=== PATIENT | male | born 1970 | race Caucasian/White ===

== ENCOUNTER → 2016-08-12 | Outpatient (REF) | payer OTHER ==
[2016-08-12 16:52] LABS: ALBUMIN 3.8 GM/DL (3.2-5.2); ALBUMIN/GLOBULIN RATIO 0.83 (1.00-1.93); BILIRUBIN,TOTAL 0.3 MG/DL (0.2-1.0); CALCIUM LEVEL 9.3 MG/DL (8.5-10.1); CREATININE FOR GFR 1.52 MG/DL (0.70-1.30); GLOMERULAR FILTRATION RATE 52.8 (>60); TOTAL PROTEIN 8.4 GM/DL (6.4-8.2)
[2016-08-15 00:08] LABS: %CD3+CD4+CD8+ 1.5 % (Not Estab.); %CD3+CD4+CD8- 39.7 % (Not Estab.); %CD3+CD4-CD8+ 47.2 % (Not Estab.); %CD3+CD4-CD8- 1.8 % (Not Estab.); ABS CD3+CD4+CD8+ 24 /uL (Not Estab.); ABS CD3+CD4+CD8- 635 /uL (Not Estab.); ABS CD3+CD4-CD8+ 755 /uL (Not Estab.); ABS CD3+CD4-CD8- 29 /uL (Not Estab.); CD4/CD8 NYSDOH RATIO 0.84 (Not Estab.); Eosinophils 2 % (.); HCT 39.3 % (37.5-51.0); HGB 12.8 g/dL (12.6-17.7); Monocytes 4 % (.); Neutrophils 62 % (.); WBC 5.3 x10E3/uL (3.4-10.8)
== END ==
LOC: M SFHCPLAZ 12:51
PROVIDERS: ATTEND Internal Medicine Infectious Disease
DX: B20 Human immunodeficiency virus [HIV] disease (principal)

== ENCOUNTER → 2017-01-09 | Outpatient (REF) | payer OTHER ==
[2017-01-09 14:16] LABS: ALBUMIN 3.7 GM/DL (3.2-5.2); ALBUMIN/GLOBULIN RATIO 0.93 (1.00-1.93); BILIRUBIN,TOTAL 0.3 MG/DL (0.2-1.0); CALCIUM LEVEL 9.2 MG/DL (8.5-10.1); CREATININE FOR GFR 1.76 MG/DL (0.70-1.30); GLOMERULAR FILTRATION RATE 44.6 (>60); POTASSIUM SERUM 4.7 MEQ/L (3.5-5.1); TOTAL PROTEIN 7.7 GM/DL (6.4-8.2)
[2017-01-10 14:15] LABS: %CD3+CD4+CD8- 36.5 % (Not Estab.); %CD3+CD4-CD8+ 46.7 % (Not Estab.); %CD3+CD4-CD8- 2.1 % (Not Estab.); ABS CD3+CD4+CD8+ 16 /uL (Not Estab.); ABS CD3+CD4+CD8- 584 /uL (Not Estab.); ABS CD3+CD4-CD8+ 747 /uL (Not Estab.); ABS CD3+CD4-CD8- 34 /uL (Not Estab.); CD4/CD8 NYSDOH RATIO 0.78 (Not Estab.); Eosinophils 5 % (.); HCT 36.9 % (37.5-51.0); HGB 11.8 g/dL (12.6-17.7); Monocytes 4 % (.); Neutrophils 54 % (.); WBC 4.6 x10E3/uL (3.4-10.8)
== END ==
LOC: M SFHCPLAZ 11:42
PROVIDERS: ATTEND Internal Medicine Infectious Disease
DX: B20 Human immunodeficiency virus [HIV] disease (principal); A09 Infectious gastroenteritis and colitis, unspecified

== ENCOUNTER → 2018-02-05 | Outpatient (REF) | payer OTHER ==
[2018-02-05 12:32] LABS: ALBUMIN 3.2 GM/DL (3.2-5.2); ALBUMIN/GLOBULIN RATIO 0.74 (1.00-1.93); ALKALINE PHOSPHATASE 213 U/L (45-117); ALT/SGPT 54 U/L (12-78); ANION GAP 8 MEQ/L (8-16); AST/SGOT 68 U/L (7-37); BILIRUBIN,TOTAL 0.1 MG/DL (0.2-1.0); BLOOD UREA NITROGEN 24 MG/DL (7-18); C REACTIVE PROTEIN QUANTITATIV 2.32 MG/DL (0.00-0.30); CALCIUM LEVEL 8.6 MG/DL (8.5-10.1); CARBON DIOXIDE LEVEL 29 MEQ/L (21-32); CHLORIDE LEVEL 101 MEQ/L (98-107); CREATININE FOR GFR 1.62 MG/DL (0.70-1.30); GLOMERULAR FILTRATION RATE 48.9 (>60); GLUCOSE, FASTING 121 MG/DL (70-100); POTASSIUM SERUM 4.6 MEQ/L (3.5-5.1); RHEUMATOID FACTOR QUANT < 10.0 IU/ML (<15.0); SODIUM LEVEL 138 MEQ/L (136-145); TOTAL PROTEIN 7.5 GM/DL (6.4-8.2)
[2018-02-05 14:09] LABS: CHLAMYDIA DNA AMPLIFICATION NEGATIVE (NEGATIVE); GC DNA AMPLIFICATION NEGATIVE (NEGATIVE)
[2018-02-05 14:21] LABS: ERYTHROCYTE SEDIMENTATION RATE 91 mm/hr (0-15)
[2018-02-06 11:11] LABS: HEPATITIS C VIRUS ABY INDEX 0.1 INDEX (<0.8)
[2018-02-07 15:38] LABS: QUANTIFERON GOLD TB Negative (Negative); TB Test (QFT) Antigen 0.04 IU/mL (.); TB Test (QFT) Mitogen 6.32 IU/mL (.); TB Test (QFT) Nil 0.04 IU/mL (.)
== END ==
LOC: M SFHCPLAZ 09:22
DX: B20 Human immunodeficiency virus [HIV] disease (principal); M25.50 Pain in unspecified joint
CPT/HCPCS: 80053

== ENCOUNTER → 2018-02-05 | Outpatient (CLI) | payer OTHER | LOC: M RAD 11:41 | DX: L03.115 Cellulitis of right lower limb (principal) | CPT/HCPCS: 93971 ==

== ENCOUNTER → 2018-04-24 | Outpatient (REF) | payer OTHER | LOC: M LAB REF 18:24 | DX: S98.132A Complete traumatic amputation of one left lesser toe, initial encounter (principal); W18.30XA Fall on same level, unspecified, initial encounter; Y92.009 Unspecified place in unspecified non-institutional (private) residence as the place of occurrence of the external cause ==

== ENCOUNTER → 2018-04-29 | Outpatient (REF) | payer OTHER ==
[2018-04-29 18:00] LABS: HEMOGLOBIN 10.8 g/dl (13.5-17.5); MEAN CORPUSCULAR HEMOGLOBIN 30.4 pg (27.0-33.0); MEAN CORPUSCULAR HGB CONC 32.7 g/dl (32.0-36.5); PLATELET COUNT, AUTOMATED 264 10^3/uL (150-450); RED BLOOD COUNT 3.55 10^6/uL (4.30-6.10); RED CELL DISTRIBUTION WIDTH 12.7 % (11.5-14.5); WHITE BLOOD COUNT 5.5 10^3/uL (4.0-10.0)
[2018-04-29 18:39] LABS: ALBUMIN 3.6 GM/DL (3.2-5.2); ALBUMIN/GLOBULIN RATIO 0.84 (1.00-1.93); ALKALINE PHOSPHATASE 101 U/L (45-117); ALT/SGPT 55 U/L (12-78); ANION GAP 7 MEQ/L (8-16); AST/SGOT 34 U/L (7-37); BILIRUBIN,TOTAL 0.2 MG/DL (0.2-1.0); BLOOD UREA NITROGEN 44 MG/DL (7-18); CALCIUM LEVEL 9.1 MG/DL (8.5-10.1); CARBON DIOXIDE LEVEL 26 MEQ/L (21-32); CHLORIDE LEVEL 105 MEQ/L (98-107); CREATININE FOR GFR 1.61 MG/DL (0.70-1.30); GLUCOSE, FASTING 261 MG/DL (70-100); POTASSIUM SERUM 5.2 MEQ/L (3.5-5.1); SODIUM LEVEL 138 MEQ/L (136-145); TOTAL PROTEIN 7.9 GM/DL (6.4-8.2)
[2018-04-29 19:16] LABS: ERYTHROCYTE SEDIMENTATION RATE 70 mm/hr (0-15)
== END ==
LOC: M LAB REF 17:01
DX: L97.524 Non-pressure chronic ulcer of other part of left foot with necrosis of bone (principal)

== ENCOUNTER → 2018-06-09 | Outpatient (CLI) | payer OTHER | LOC: M LRY 14:04 | DX: R76.8 Other specified abnormal immunological findings in serum (principal); M79.641 Pain in right hand; M79.642 Pain in left hand | CPT/HCPCS: 72202 ==

== ENCOUNTER → 2018-06-09 | Outpatient (REF) | payer OTHER ==
[2018-06-09 17:06] LABS: C REACTIVE PROTEIN QUANTITATIV 3.19 MG/DL (0.00-0.30); COMPLEMENT C3 167 MG/DL (90-180); TOTAL PROTEIN 8.2 GM/DL (6.4-8.2)
[2018-06-09 17:06] LABS: URIC ACID 3.7 MG/DL (3.5-7.2)
[2018-06-09 18:05] LABS: ERYTHROCYTE SEDIMENTATION RATE 82 mm/hr (0-15)
[2018-06-11 13:44] LABS: ALBUMIN 4.47 GM/DL (3.29-5.55); ALBUMIN % 54.5 % (55.8-66.1); ALPHA-1-GLOBULIN % 3.6 % (2.9-4.9); ALPHA-2-GLOBULINS 0.84 GM/DL (0.42-0.99); ALPHA-2-GLOBULINS % 10.3 % (7.1-11.8); BETA-1-GLOBULINS 0.51 GM/DL (0.28-0.60); BETA-1-GLOBULINS % 6.2 % (4.7-7.2); BETA-2-GLOBULINS 0.53 GM/DL (0.19-0.55); BETA-2-GLOBULINS % 6.5 % (3.2-6.5); GAMMA GLOBULIN % 18.9 % (11.1-18.8); GAMMA GLOBULINS 1.55 GM/DL (0.65-1.58)
[2018-06-16 00:07] LABS: ANA (HEP2) Positive (.); ANA HOMOGENEOUS PATTERN >1:1280 (.); ANTI DOUBLE STRAND-DNA AB 1 IU/mL (0-9); HLA-B27 Negative (.); RNP ANTIBODY < 0.2 AI (0.0-0.9); SMITHS ANTIBODY < 0.2 AI (0.0-0.9); SSA SJOGRENS A <0.2 AI (0.0-0.9); SSB SJOGRENS B <0.2 AI (0.0-0.9)
== END ==
LOC: M SFHCLERA 13:51
DX: R76.8 Other specified abnormal immunological findings in serum (principal)
CPT/HCPCS: 84165

== ENCOUNTER → 2018-08-05 | Outpatient (REF) | payer OTHER ==
[~2018-08-05] MED LIST: ALIG4CAP PO; CENTCHW4 PO; GENV1TAB PO; HUMA100I3 SC; IRON325T7 PO; LANTINJ4 SC; LOSA50TA88 PO; NEUR600T PO; OMEP-221 PO; POTA75TA2 PO; PRAV1TAB39 PO; WELLTAB40 PO
[2018-08-05 17:33] LABS: HEMATOCRIT 34.9 % (42.0-52.0); HEMOGLOBIN 11.9 g/dl (13.5-17.5); MEAN CORPUSCULAR HEMOGLOBIN 30.3 pg (27.0-33.0); MEAN CORPUSCULAR HGB CONC 34.1 g/dl (32.0-36.5); MEAN CORPUSCULAR VOLUME 88.8 fl (80.0-96.0); PLATELET COUNT, AUTOMATED 267 10^3/uL (150-450); RED BLOOD COUNT 3.93 10^6/uL (4.30-6.10); WHITE BLOOD COUNT 5.8 10^3/uL (4.0-10.0)
[2018-08-05 17:55] LABS: ALBUMIN 4.1 GM/DL (3.2-5.2); BILIRUBIN,TOTAL 0.3 MG/DL (0.2-1.0); C REACTIVE PROTEIN QUANTITATIV 0.61 MG/DL (0.00-0.30); CALCIUM LEVEL 9.4 MG/DL (8.5-10.1); CREATININE FOR GFR 1.76 MG/DL (0.70-1.30); GLOMERULAR FILTRATION RATE 44.2 (>60); POTASSIUM SERUM 5.5 MEQ/L (3.5-5.1); TOTAL PROTEIN 8.5 GM/DL (6.4-8.2)
[2018-08-05 18:07] LABS: ERYTHROCYTE SEDIMENTATION RATE 64 mm/hr (0-15)
[2018-08-05 18:32] LABS: HEMOGLOBIN A1c 8.8 %
== END ==
LOC: M LAB REF 17:14
PROVIDERS: ATTEND Surgery
DX: E11.621 Type 2 diabetes mellitus with foot ulcer (principal); L97.524 Non-pressure chronic ulcer of other part of left foot with necrosis of bone

== ENCOUNTER 2018-08-12 16:12 | Inpatient (IN) | payer OTHER ==
[~2018-08-12] VITALS: Ht 170.2 cm; Wt 77.6 kg
[2018-08-12] MEDS ORDERED: OMEP-221 PO (16:29)
[2018-08-12] MEDS ORDERED: CENTCHW4 PO (16:29)
[2018-08-12] MEDS ORDERED: IRON325T7 PO (16:29)
[2018-08-12] MEDS ORDERED: LANTINJ4 SC (16:29)
[2018-08-12] MEDS ORDERED: ALIG4CAP PO (16:29)
[2018-08-12] MEDS ORDERED: GENV1TAB PO (16:29)
[2018-08-12] MEDS ORDERED: WELLTAB40 PO (16:29)
[2018-08-12] MEDS ORDERED: NEUR600T PO (16:29)
[2018-08-12] MEDS ORDERED: HUMA100I3 SC (16:29)
[2018-08-12] MEDS ORDERED: POTA75TA2 PO (16:29)
[2018-08-12] MEDS ORDERED: PRAV1TAB39 PO (16:29)
[2018-08-12] MEDS ORDERED: LOSA50TA88 PO (16:29)
[2018-08-12] MEDS ORDERED: ACETAMINOPHEN 325 MG TAB PO ONE (16:45)
[2018-08-12 16:59] LABS: BASO # 0.1 10^3/uL (0.0-0.2); BASO % 0.4 % (0.0-1.0); EOS # 0.1 10^3/uL (0.0-0.50); EOS % 0.4 % (0.0-3.0); HEMATOCRIT 28.2 % (42.0-52.0); HEMOGLOBIN 9.7 g/dl (13.5-17.5); LYMPH # 1.4 10^3/uL (1.5-4.5); LYMPH % 11.4 % (24.0-44.0); MEAN CORPUSCULAR HEMOGLOBIN 30.1 pg (27.0-33.0); MEAN CORPUSCULAR HGB CONC 34.4 g/dl (32.0-36.5); MEAN CORPUSCULAR VOLUME 87.6 fl (80.0-96.0); MONO # 1.2 10^3/uL (0.0-0.8); MONO % 9.6 % (0.0-5.0); NEUTROPHILS # 9.5 10^3/uL (1.8-7.7); NEUTROPHILS % 77.5 % (36.0-66.0); PLATELET COUNT, AUTOMATED 258 10^3/uL (150-450); RED BLOOD COUNT 3.22 10^6/uL (4.30-6.10); WHITE BLOOD COUNT 12.3 10^3/uL (4.0-10.0)
[2018-08-12 17:01] LABS: VENOUS HCO3 24.9 MEQ/L (23.0-27.0); VENOUS O2 SATURATION 79.7 % (60.0-80.0); VENOUS PARTIAL PRESSURE CO2 37.3 mmHg (38.0-50.0); VENOUS PARTIAL PRESSURE O2 39.1 mmHg (30.0-50.0); VENOUS PH 7.443 UNITS (7.330-7.430); VENOUS TOTAL CO2 26.1 MEQ/L (24.0-28.0)
--- NOTE | 2018-08-12 17:07 | REP ---
Chest one-view HISTORY: Sepsis Comparison: None The lungs are clear. The heart is normal in size. The pulmonary vasculature is normal in appearance. Impression: No acute disease. Electronically Signed by Ac Potter MD 08/12/2018 04:58 P
[2018-08-12 17:12] LABS: ALBUMIN 3.3 GM/DL (3.2-5.2); BILIRUBIN,DIRECT 0.2 MG/DL (0.0-0.2); BILIRUBIN,TOTAL 0.6 MG/DL (0.2-1.0); C REACTIVE PROTEIN QUANTITATIV 25.6 MG/DL (0.00-0.30); CALCIUM LEVEL 8.4 MG/DL (8.5-10.1); CREATININE FOR GFR 2.02 MG/DL (0.70-1.30); GLOMERULAR FILTRATION RATE 37.7 (>60); TOTAL PROTEIN 7.2 GM/DL (6.4-8.2)
[2018-08-12 17:41] LABS: INFLUENZA A AMPLIFICATION NEGATIVE (NEGATIVE); INFLUENZA B AMPLIFICATION NEGATIVE (NEGATIVE)
[2018-08-12] MEDS ORDERED: VANCOMYCIN HCL 1,000 MG, VIAL MATE ADAPTER 1 EACH in D5W 250 ML IV ONE (17:45)
--- NOTE | 2018-08-12 18:19 | REP ---
Left foot series: Portable views: History: Nonhealing wound. Findings: The second toe has been amputated at the level of the proximal metatarsal. There is a healed fracture versus osteotomy of the distal end of the fifth metatarsal. There is an extension deformity at the first MTP joint. There is soft tissue deficit over the distal end of the first metatarsal and there is cortical bony erosive change and soft tissue irregularity and some soft tissue gas here. Changes are consistent with osteomyelitis. There is a plantar and Achilles calcaneal spur. Impression: Changes consistent with osteomyelitis of the distal end of the first metatarsal. Electronically Signed by Damion Sanford MD 08/12/2018 07:45 P
[2018-08-12] MEDS: DEXTROSE 50% 50 ML SYRINGE IV PRN (19:25)
[2018-08-12] MEDS ORDERED: GLUCAGON FOR INJ 1 MG VIAL (J1610) SC PRN (19:30)
[2018-08-12] MEDS ORDERED: GLUCOSE 4 GM CHEW TABLET PO PRN (19:30)
--- NOTE | 2018-08-12 19:52 | PHACANCOPD ---
PHARMACY VANCOMYCIN DOSING Pt Demographics Demographics Patient Age:48 , Weight:75.450 , Gender: male Adjusted Body Weight Date: 08/12/18, Adjusted Body Weight: Kg Events Past 24 Hours Events Past 24 Hours: YES: Change in CrCl, Fever, Elevation in WBC; NO: Dialysis, Diuretic Therapy, Pending Diagnostics, Pending Procedures, Other Vancomycin Vancomycin Target Ranges: 10-20 mcg/ml Vancomycin Load Y/N: Yes Load Dose Date Time Vancomycin Load Dose: 1750MG Date: 08/12/18 Time: 2000 Vancomycin Dose Date: 08/12/18. Current Vancomycin Dose: Intermittent Dosing?: No Labs Labs Vital Signs Label Value Date Time Patient Temperature 100.1 degrees F 08/12/18 1835 Temperature Source Oral 08/12/18 1835 Patient Temperature 101.7 degrees F 08/12/18 1755 Temperature Source Oral 08/12/18 1755 Item Value Date Time White Blood Count 12.3 10^3/uL H 08/12/18 1638 Creatinine 2.02 MG/DL H 08/12/18 1638 C-Reactive Protein, Quantitative 25.60 MG/DL H 08/12/18 1638 Bedside Glucose (Misc Panel) 375 MG/DL H 08/12/18 1944 Bedside Glucose (Misc Panel) 62 MG/DL L 08/12/18 1919 Micro Microbiology 08/12/18 Blood Culture, Received Pending 08/12/18 Blood Culture, Received Pending Creatinine Clearance Date:08/12/18. Creatinine Clearance: . Assessment and Plan Maintaining Current Dose?: Yes Reason for dose change: No Dose Change Pharmacist Note Pharmacist Note Date: 08/12/18. Pharmacist note: Pt was sent to ED from [facility] clinic due to fever. Pt. started on Zosyn and Vanco for diabetic foot infection. Pt. has no hx of Vanco or MRSA at our facility. I have loaded the pt with 1750mg IV x1 followed by Vanco 1G IV Q24H@1800. We will continue to follow and adjust dose as needed. THOR SINGH [facility] Aug 12, 2018 19:52
[2018-08-12] MEDS: NS 1,000 ML IV SCH (19:57)
[2018-08-12] MEDS ORDERED: VANCOMYCIN HCL 750 MG, VIAL MATE ADAPTER 1 EACH in D5W 250 ML IV ONE (20:00)
[2018-08-12] MEDS: GABAPENTIN 300 MG CAP PO SCH (21:11)
[2018-08-12] MEDS: HumaLOG INSULIN (NovoLOG) PER UNIT SC SCH (21:11)
--- NOTE | 2018-08-12 22:36 | HPE ---
DATE OF ADMISSION: 08/12/2018 This is a 48-year-old male with past medical history of hypertension, hyperlipidemia, HIV, diabetes, diabetic neuropathy, chronic left diabetic foot ulcer, status post hyperbaric therapy and multiple debridements seen by Dr. Magallon presents to the emergency room from Dr. Magallon's office after patient came in for followup visit. The patient had subjective feeling of aches and chills in the office and the wound looked necrotic, so Dr. Magallon did debride the wound and sent the patient to the ER for evaluation. In the ER, the patient was septic, started on IV fluids. Patient had a temperature of 100.1 and a white count of 12.3000. When I examined him he was definitely lethargic, though verbally appropriate. He said that the wound was doing great during hyperbaric treatment, but has slowly been deteriorating over the last two weeks and did mention the fact that he had subjective feeling of fever, aches and chills and decreased by mouth intake. He was started on IV vancomycin and Zosyn and he will be admitted for further management. PAST MEDICAL HISTORY: Hypertension. Hyperlipidemia. HIV. Diabetes. Diabetic neuropathy. Chronic kidney disease (CKD) III. ALLERGIES: He has no know drug allergies. FAMILY HISTORY: Noncontributory. SOCIAL HISTORY: Patient denies tobacco, alcohol or illicit drugs. MEDICATIONS HE TAKES AT HOME: Are as follows: - Align 4 mg orally daily - bupropion 300 mg orally daily - gabapentin 600 mg orally at bedtime - Genvoya 150/450/200/10 one tablet orally daily - Lantus 40 units subcutaneous daily - insulin Lispro sliding scale - iron high potency 325 mg orally daily - losartan 50 mg orally daily - multivitamin 1 tablet orally daily - omeprazole 40 mg orally daily - potassium 75 mg orally daily - pravastatin 20 mg orally daily REVIEW OF SYSTEMS: Negative all 10 major systems except what has been mentioned in the HPI. VITALS: Blood pressure is 103/59. Heart rate is 85, regular. Respiratory rate 20. Temperature is 100.1. Oxygen saturation is 95% on room air. Head: Atraumatic. Normocephalic. Neck: Supple. No jugular venous distention (JVD). Lungs: Clear to auscultation. S1, S2 audible. No murmurs appreciated. Abdomen: Soft, positive bowel sounds. No pedal edema. Skin examination: There is a large diabetic ulcer in the plantar aspect of the left foot with small necrotic border. No purulent discharge noted. There is no appreciable dorsalis pedis (DP) pulses bilaterally. Neurological examination: Patient awake, alert and oriented times three. LABS: Sodium 134, potassium 5, chloride 102, CO2 25, albumin is 26. Creatinine is 2.02. WBC 12.3, hemoglobin is 9.7. Hematocrit 28.2, platelets are 258,000. BBG: PH of 7.443. PCO2 37.3. X-ray of the left foot shows changes consistent with osteomyelitis of the distal end of the first metatarsal. IMPRESSION: 1. Osteomyelitis of the left foot. 2. Sepsis. 3. Acute kidney injury (NIKHIL). PLAN: Patient will be admitted to PCU. Will start the patient on IV fluids. I believe this NIKHIL is prerenal in origin. He has not been drinking well and has been having fevers with increase in sensible losses. Blood cultures have been sent out and a bone biopsy culture has been sent out from Dr. Magallon's clinic. Will followup the results of that biopsy and culture from [facility]. I am going to continue patient on IV Zosyn and vancomycin and continue all his pre-admission medications, but I will hold the losartan for now until his NIKHIL resolves, and his by mouth intake is adequate as far as fluids are concerned.
[2018-08-12] MEDS: PIPERACILLIN/TAZOBACTAM SOD 2.25 GM in D5W MINI-BAG PLUS 50 ML IV SCH (22:51)
[2018-08-12 23:59] VITALS: BP 131/72
[2018-08-13] MEDS: ACETAMINOPHEN TAB 650MG DOSE (2X325MG) PO PRN ×2 (01:39→13:59)
[2018-08-13 04:00] VITALS: BP 113/57
[2018-08-13] MEDS: PIPERACILLIN/TAZOBACTAM SOD 2.25 GM in D5W MINI-BAG PLUS 50 ML IV SCH ×3 (04:47→20:36)
[2018-08-13] MEDS: NS 1,000 ML IV SCH (06:30)
[2018-08-13 07:23] LABS: BASO # 0.1 10^3/uL (0.0-0.2); BASO % 0.4 % (0.0-1.0); EOS # 0.2 10^3/uL (0.0-0.50); EOS % 1.6 % (0.0-3.0); HEMATOCRIT 25.1 % (42.0-52.0); HEMOGLOBIN 8.6 g/dl (13.5-17.5); LYMPH # 1.7 10^3/uL (1.5-4.5); LYMPH % 14.4 % (24.0-44.0); MEAN CORPUSCULAR HEMOGLOBIN 31.2 pg (27.0-33.0); MEAN CORPUSCULAR HGB CONC 34.3 g/dl (32.0-36.5); MEAN CORPUSCULAR VOLUME 90.9 fl (80.0-96.0); MONO # 1.1 10^3/uL (0.0-0.8); MONO % 9.6 % (0.0-5.0); NEUTROPHILS # 8.5 10^3/uL (1.8-7.7); NEUTROPHILS % 73.6 % (36.0-66.0); PLATELET COUNT, AUTOMATED 213 10^3/uL (150-450); RED BLOOD COUNT 2.76 10^6/uL (4.30-6.10); WHITE BLOOD COUNT 11.5 10^3/uL (4.0-10.0)
[2018-08-13 07:50] LABS: CALCIUM LEVEL 8.3 MG/DL (8.5-10.1); CREATININE FOR GFR 1.95 MG/DL (0.70-1.30); GLOMERULAR FILTRATION RATE 39.3 (>60); POTASSIUM SERUM 4.3 MEQ/L (3.5-5.1)
[2018-08-13 08:00] VITALS: BP 137/64
--- NOTE | 2018-08-13 08:01 | ECGEPIP ---
Stationary ECG Study [facility] - ED Test Date: 2018-08-12 Pat Name: MINDA CANO Department: Room: - Gender: M Atv Mechanic: Nemo : [id number] Requested By: Hawa Saavedra Order Number: [id number] Reading MD: Pop Lizama Measurements Intervals [place] Rate: 105 P: 29 KS: 136 QRS: 10 QRSD: 77 T: 17 QT: 284 QTc: 377 Interpretive Statements SINUS TACHYCARDIA POSSIBLE LEFT ATRIAL ENLARGEMENT NSTTW ABNORMALITIES NO PRIORS FOR COMPARISON Electronically Signed On 08-13-2018 8:01:02 EST by Pop Lizama
[2018-08-13] MEDS: PRAVASTATIN 20 MG TAB PO SCH (08:09)
[2018-08-13] MEDS: MULTIVITAMINS/MINERALS THERAP 1 TAB PO SCH (08:09)
[2018-08-13] MEDS: buPROPion **XL** TABLET 150MG (WELLBUTRIN XL) PO SCH (08:09)
[2018-08-13] MEDS: FERROUS SULFATE 325MG TAB PO SCH (08:09)
[2018-08-13] MEDS: HumaLOG INSULIN (NovoLOG) PER UNIT SC SCH ×4 (08:10→20:37)
[2018-08-13] MEDS ORDERED: LEVEMIR (INSULIN DETEMIR) 1 UNITS/0.01ML SC SCH (09:00)
[2018-08-13] MEDS ORDERED: LOSARTAN 50 MG TAB PO SCH (09:00)
[2018-08-13 11:30] VITALS: BP 142/70
[2018-08-13 14:00] VITALS: BP 144/71
--- NOTE | 2018-08-13 14:33 | IPNPDOC ---
Text Note Date of Service The patient was seen on 08/13/18. NOTE Subjective: No complaints this am . No events in telemetry overnight. No fever or chills, this am. No chest pain or sob , no abdominal pain nausea or vomiting or diarrhea. Does nt complain of any pain in his left foot. PHYSICAL EXAM: VITALS: As below Head: Atraumatic. Normocephalic. Neck: Supple. No jugular venous distention (JVD). Lungs: Clear to auscultation. CVS: S1, S2 normal . No murmurs appreciated. No rub or gallop Abdomen: Soft, positive bowel sounds. Extremities: No pedal edema. Skin examination: There is a large diabetic ulcer in the plantar aspect of the left foot with small necrotic border. No purulent discharge noted. There is no appreciable dorsalis pedis (DP) pulses bilaterally. Neurological examination: Patient awake, alert and oriented times three. Labs and radiology : reviewed ASSESSMENT and PLAN: This is a 48-year-old male with past medical history of hypertension, hyperlipidemia, HIV, diabetes, diabetic neuropathy, chronic left diabetic foot ulcer, status post hyperbaric therapy and multiple debridements seen by Dr. Magallon presents to the emergency room from Dr. Magallon's office after patient came in for followup visit. The patient had subjective feeling of aches and chills in the office and the wound looked necrotic, so Dr. Magallon did debride the wound and sent the patient to the ER for evaluation. In the ER, the patient was septic, started on IV fluids. Patient had a temperature of 100.1 and a white count of 12.3000. When I examined him he was definitely lethargic, though verbally appropriate. He said that the wound was doing great during hyperbaric treatment, but has slowly been deteriorating over the last two weeks and did mention the fact that he had subjective feeling of fever, aches and chills and decreased by mouth intake. He was started on IV vancomycin and Zosyn and he will be admitted for further management. Osteomyelitis of the first toe proximal phalanx. Had debridement done on 08/12/[address] Magallon's office. bone biopsy culture has been sent out from Dr. Magallon's clinic. dressing as per Dr Magallon Sepsis. infected diabetic foot ulcer continue zosyn and vancomycin. CKD stage 3 monitor renal functions. Diabetes with diabetic Neuropathy levemir and lispro , gabapentin Hypertension well controlled will hold off on losartan today. Hyperlipidemia pravastatin HIV continue home medication Anemia of chronic disease and iron deficiency continue iron check iron studies, b 12 and folate levels. GERD omeprazole DVT prophylaxis ordered. VS,Fishbone, I+O VS, Fishbone, I+O Laboratory Tests 08/12/18 16:38 Red Blood Count 3.22 L, Mean Corpuscular Volume 87.6, Mean Corpuscular Hemoglobin 30.1, Mean Corpuscular Hemoglobin Concent 34.4, Red Cell Distribution Width 11.3 L, Neutrophils (%) (Auto) 77.5 H, Lymphocytes (%) (Auto) 11.4 L, Monocytes (%) (Auto) 9.6 H, Eosinophils (%) (Auto) 0.4, Basophils (%) (Auto) 0.4, Neutrophils # (Auto) 9.5 H, Lymphocytes # (Auto) 1.4 L, Monocytes # (Auto) 1.2 H, Eosinophils # (Auto) 0.1, Basophils # (Auto) 0.1 08/13/18 07:04 Red Blood Count 2.76 L, Mean Corpuscular Volume 90.9, Mean Corpuscular Hemoglobin 31.2, Mean Corpuscular Hemoglobin Concent 34.3, Red Cell Distribution Width 11.7, Neutrophils (%) (Auto) 73.6 H, Lymphocytes (%) (Auto) 14.4 L, Monocytes (%) (Auto) 9.6 H, Eosinophils (%) (Auto) 1.6, Basophils (%) (Auto) 0.4, Neutrophils # (Auto) 8.5 H, Lymphocytes # (Auto) 1.7, Monocytes # (Auto) 1.1 H, Eosinophils # (Auto) 0.2, Basophils # (Auto) 0.1, Calcium Level 8.3 L Vital Signs Date Time Temp Pulse Resp B/P (MAP) Pulse Ox O2 Delivery O2 Flow Rate FiO2 08/13/18 11:30 99.5 88 18 142/70 (94) 93 Room Air I&O- Last 24 Hours up to 6 AM 08/13/18 06:00 Intake Total 640 ml Output Total 1100 ml Balance -460 ml CESIA NIETO MD Aug 13, 2018 14:15
[2018-08-13 15:26] LABS: HEMOGLOBIN A1c 8.6 %
[2018-08-13 15:29] LABS: PERCENT SATURATION 6.1 % (19.7-50.0)
[2018-08-13 15:36] LABS: FOLATE 16.4 NG/ML (>5.4)
[2018-08-13] MEDS ORDERED: VANCOMYCIN HCL 1,000 MG, VIAL MATE ADAPTER 1 EACH in D5W 250 ML IV SCH (18:00)
[2018-08-13] MEDS: GABAPENTIN 300 MG CAP PO SCH (20:36)
[2018-08-13 22:00] VITALS: BP 119/58
[2018-08-14] MEDS: ACETAMINOPHEN TAB 650MG DOSE (2X325MG) PO PRN ×2 (05:18→19:49)
[2018-08-14] MEDS: PIPERACILLIN/TAZOBACTAM SOD 2.25 GM in D5W MINI-BAG PLUS 50 ML IV SCH ×3 (05:18→20:56)
[2018-08-14 06:00] VITALS: BP 138/65
[2018-08-14] MEDS: PRAVASTATIN 20 MG TAB PO SCH (09:15)
[2018-08-14] MEDS: MULTIVITAMINS/MINERALS THERAP 1 TAB PO SCH (09:15)
[2018-08-14] MEDS: HumaLOG INSULIN (NovoLOG) PER UNIT SC SCH ×4 (09:15→20:55)
[2018-08-14] MEDS: FERROUS SULFATE 325MG TAB PO SCH (09:15)
[2018-08-14] MEDS: buPROPion **XL** TABLET 150MG (WELLBUTRIN XL) PO SCH (09:15)
[2018-08-14] MEDS: LEVEMIR (INSULIN DETEMIR) 1 UNITS/0.01ML SC SCH (09:16)
--- NOTE | 2018-08-14 10:29 | IPNPDOC ---
Text Note Date of Service The patient was seen on 08/14/18. NOTE Subjective: No complaints this am . No chest pain or sob , no abdominal pain nausea or vomiting or diarrhea. Does not complain of any pain in his left foot. Had a spike of fever 101.4 this morning. No chills. No abdominal pain , nausea or vomiting or diarrehea, good appetite. PHYSICAL EXAM: VITALS: As below Head: Atraumatic. Normocephalic. Neck: Supple. No jugular venous distention (JVD). Lungs: Clear to auscultation. CVS: S1, S2 normal . No murmurs appreciated. No rub or gallop Abdomen: Soft, positive bowel sounds. Extremities: No pedal edema. Skin examination: There is a large diabetic ulcer in the plantar aspect of the left foot with small necrotic border. No purulent discharge noted. There is no appreciable dorsalis pedis (DP) pulses bilaterally. Neurological examination: Patient awake, alert and oriented times three. Labs and radiology : reviewed ASSESSMENT and PLAN: This is a 48-year-old male with past medical history of hypertension, hyperlipidemia, HIV, diabetes, diabetic neuropathy, chronic left diabetic foot ulcer, status post hyperbaric therapy and multiple debridements seen by Dr. Magallon presents to the emergency room from Dr. Magallon's office after patient came in for followup visit. The patient had subjective feeling of aches and chills in the office and the wound looked necrotic, so Dr. Magallon did debride the wound and sent the patient to the ER for evaluation. In the ER, the patient was septic, started on IV fluids. Patient had a temperature of 100.1 and a white count of 12.3000. When I examined him he was definitely lethargic, though verbally appropriate. He said that the wound was doing great during hyperbaric treatment, but has slowly been deteriorating over the last two weeks and did mention the fact that he had subjective feeling of fever, aches and chills and decreased by mouth intake. He was started on IV vancomycin and Zosyn and he will be admitted for further management. Osteomyelitis of the first toe proximal phalanx. Had debridement done on 08/12/[address] Magallon's office. bone biopsy culture has been sent out from Dr. Magallon's clinic. dressing as per Dr Magallon Sepsis. infected diabetic foot ulcer continue zosyn and vancomycin. CKD stage 3 monitor renal functions. Diabetes with diabetic Neuropathy levemir and lispro , gabapentin Hypertension well controlled will hold off on losartan today. Hyperlipidemia pravastatin HIV continue home medication Anemia of chronic disease and iron deficiency continue iron check iron studies, b 12 and folate levels. GERD omeprazole DVT prophylaxis ordered. VS,Fishbone, I+O VS, Fishbone, I+O Vital Signs Date Time Temp Pulse Resp B/P (MAP) Pulse Ox O2 Delivery O2 Flow Rate FiO2 08/14/18 06:00 100.9 96 18 138/65 (89) 95 Room Air I&O- Last 24 Hours up to 6 AM 08/14/18 05:59 Intake Total 2370 ml Output Total 3250 ml Balance -880 ml CESIA NIETO MD Aug 14, 2018 10:28
[2018-08-14 14:00] VITALS: BP 132/73
[2018-08-14] MEDS: VANCOMYCIN HCL 1,000 MG, VIAL MATE ADAPTER 1 EACH in D5W 250 ML IV SCH (18:20)
[2018-08-14] MEDS: GABAPENTIN 300 MG CAP PO SCH (20:56)
[2018-08-14] MEDS ORDERED: LEVEMIR (INSULIN DETEMIR) 1 UNITS/0.01ML SC SCH (21:00)
[2018-08-15] MEDS: PIPERACILLIN/TAZOBACTAM SOD 2.25 GM in D5W MINI-BAG PLUS 50 ML IV SCH ×3 (05:23→20:58)
[2018-08-15 06:00] VITALS: BP 157/84
[2018-08-15] MEDS: HumaLOG INSULIN (NovoLOG) PER UNIT SC SCH ×5 (08:42→20:59)
[2018-08-15] MEDS: PRAVASTATIN 20 MG TAB PO SCH (08:42)
[2018-08-15] MEDS: LEVEMIR (INSULIN DETEMIR) 1 UNITS/0.01ML SC SCH ×2 (08:43→20:59)
[2018-08-15] MEDS: MULTIVITAMINS/MINERALS THERAP 1 TAB PO SCH (08:43)
[2018-08-15] MEDS: buPROPion **XL** TABLET 150MG (WELLBUTRIN XL) PO SCH (08:43)
[2018-08-15] MEDS: FERROUS SULFATE 325MG TAB PO SCH (08:43)
[2018-08-15] MEDS: VANCOMYCIN HCL 1,000 MG, VIAL MATE ADAPTER 1 EACH in D5W 250 ML IV SCH (12:30)
[2018-08-15 14:00] VITALS: BP 136/62
--- NOTE | 2018-08-15 16:24 | IPNPDOC ---
Text Note Date of Service The patient was seen on 08/15/18. NOTE Subjective: No complaints this am . No chest pain or sob , no abdominal pain nausea or vomiting or diarrhea. Does not complain of any pain in his left foot. Did not spike any fever this am. No abdominal pain , nausea or vomiting or diarrhea, good appetite. PHYSICAL EXAM: VITALS: As below Head: Atraumatic. Normocephalic. Neck: Supple. No jugular venous distention (JVD). Lungs: Clear to auscultation. CVS: S1, S2 normal . No murmurs appreciated. No rub or gallop Abdomen: Soft, positive bowel sounds. Extremities: No pedal edema. Skin examination: There is a large diabetic ulcer in the plantar aspect of the left foot with small necrotic border. No purulent discharge noted. There is no appreciable dorsalis pedis (DP) pulses bilaterally. Neurological examination: Patient awake, alert and oriented times three. Labs and radiology : reviewed ASSESSMENT and PLAN: This is a 48-year-old male with past medical history of hypertension, hyperlipidemia, HIV, diabetes, diabetic neuropathy, chronic left diabetic foot ulcer, status post hyperbaric therapy and multiple debridements seen by Dr. Magallon presents to the emergency room from Dr. Magallon's office after patient came in for followup visit. The patient had subjective feeling of aches and chills in the office and the wound looked necrotic, so Dr. Magallon did debride the wound and sent the patient to the ER for evaluation. In the ER, the patient was septic, started on IV fluids. Patient had a temperature of 100.1 and a white count of 12.3000. When I examined him he was definitely lethargic, though verbally appropriate. He said that the wound was doing great during hyperbaric treatment, but has slowly been deteriorating over the last two weeks and did mention the fact that he had subjective feeling of fever, aches and chills and decreased by mouth intake. He was started on IV vancomycin and Zosyn and he will be admitted for further management. Osteomyelitis of the first toe proximal phalanx. Had debridement done on 08/12/[address] Magallon's office. bone biopsy culture has been sent out from Dr. Magallon's clinic. Growing MSSA and streptococcus group G dressing as per Dr Magallon will continue with zosyn but dc vancomycin Sepsis. infected diabetic foot ulcer blood cultures negative till date. continue zosyn CKD stage 3 monitor renal functions. Diabetes with diabetic Neuropathy sugars are uncontrolled partly due to infection and partly due to the dextrose from the antibiotics. levemir and lispro , gabapentin Hypertension well controlled will hold off on losartan today. Hyperlipidemia pravastatin HIV continue home medication Anemia of chronic disease and iron deficiency continue iron check iron studies, b 12 and folate levels. GERD omeprazole DVT prophylaxis ordered. VS,Fishbone, I+O VS, Fishbone, I+O Vital Signs Date Time Temp Pulse Resp B/P (MAP) Pulse Ox O2 Delivery O2 Flow Rate FiO2 08/15/18 14:00 99.9 90 18 136/62 (86) 95 Room Air I&O- Last 24 Hours up to 6 AM 08/15/18 06:00 Intake Total 1830 ml Output Total 1320 ml Balance 510 ml CESIA NIETO MD Aug 15, 2018 16:24
[2018-08-15] MEDS: GENVOYA PO SCH ×2 (17:37→18:24)
[2018-08-15] MEDS: GABAPENTIN 300 MG CAP PO SCH (20:59)
[2018-08-15 22:00] VITALS: BP 141/76
[2018-08-16] MEDS: PIPERACILLIN/TAZOBACTAM SOD 2.25 GM in D5W MINI-BAG PLUS 50 ML IV SCH ×3 (05:24→21:14)
[2018-08-16 06:00] VITALS: BP 130/75
[2018-08-16 06:04] LABS: BASO % 0.4 % (0.0-1.0); EOS # 0.3 10^3/uL (0.0-0.50); EOS % 2.7 % (0.0-3.0); HEMATOCRIT 24.6 % (42.0-52.0); HEMOGLOBIN 8.2 g/dl (13.5-17.5); LYMPH % 20.9 % (24.0-44.0); MEAN CORPUSCULAR HEMOGLOBIN 30.1 pg (27.0-33.0); MEAN CORPUSCULAR HGB CONC 33.3 g/dl (32.0-36.5); MEAN CORPUSCULAR VOLUME 90.4 fl (80.0-96.0); MONO # 0.9 10^3/uL (0.0-0.8); MONO % 9.6 % (0.0-5.0); NEUTROPHILS # 6.4 10^3/uL (1.8-7.7); PLATELET COUNT, AUTOMATED 294 10^3/uL (150-450); RED BLOOD COUNT 2.72 10^6/uL (4.30-6.10); WHITE BLOOD COUNT 9.7 10^3/uL (4.0-10.0)
[2018-08-16 06:25] LABS: CALCIUM LEVEL 8.8 MG/DL (8.5-10.1); CREATININE FOR GFR 1.47 MG/DL (0.70-1.30); GLOMERULAR FILTRATION RATE 54.4 (>60); POTASSIUM SERUM 3.5 MEQ/L (3.5-5.1)
[2018-08-16] MEDS: HumaLOG INSULIN (NovoLOG) PER UNIT SC SCH ×4 (07:30→21:00)
[2018-08-16] MEDS: PRAVASTATIN 20 MG TAB PO SCH (08:46)
[2018-08-16] MEDS: buPROPion **XL** TABLET 150MG (WELLBUTRIN XL) PO SCH (08:46)
[2018-08-16] MEDS: MULTIVITAMINS/MINERALS THERAP 1 TAB PO SCH (08:46)
[2018-08-16] MEDS: FERROUS SULFATE 325MG TAB PO SCH (08:46)
[2018-08-16] MEDS: GENVOYA PO SCH (08:50)
[2018-08-16] MEDS: LEVEMIR (INSULIN DETEMIR) 1 UNITS/0.01ML SC SCH ×2 (12:49→21:14)
[2018-08-16 14:00] VITALS: BP 133/70
--- NOTE | 2018-08-16 15:15 | IPNPDOC ---
Text Note Date of Service The patient was seen on 08/16/18. NOTE Subjective: Patient states his foot is feeling better. Denies any redness around the infected region. No acute changes overnight. Objective: Vitals: (see below) General: No acute distress, laying comfortably in bed. HEENT: Moist mucous membranes. Neck: No JVD or lymphadenopathy Cardiac: RRR, No murmurs Pulm: Clear to auscultation b/l. No wheezing, rhonchi Abd: NT/ND + BS Ext: No edema or cyanosis. Distal pulses intact. Infected area of the left metatarsal appears clean and dry. No drainage. No erythema. No cellulitis. Labs (see below) Images: X-ray foot 08/14/18 Impression: Changes consistent with osteomyelitis of the distal end of the first metatarsal. Assessment/Plan 1. Sepsis secondary to acute osteomyelitis infected diabetic foot ulcer/- patient with MSSA and group B strep on wound culture. Patient also has bone pathology with acute osteomyelitis. Leukocytosis improving. Afebrile. Wound care. Will need close outpatient follow-up with Dr. Magallon outpatient. 2. Chronic kidney disease. Creatinine improving. Avoid nephrotoxins. 3. Diabetes mellitus continue Levemir and sliding scale insulin. Levemir dose increased. 4. Hypertension stable. 5. Hyperlipidemia on statin 6. History of HIV continue home meds 7. Anemia of chronic disease and iron deficiency anemia -stable. Continue iron supplementation. No need for transfusion at this time. 8. GERD on PPI DVT prophy: Heparin subcutaneous Overall prognosis guarded. VS,Fishbone, I+O VS, Fishbone, I+O Laboratory Tests 08/16/18 05:51 Red Blood Count 2.72 L, Mean Corpuscular Volume 90.4, Mean Corpuscular Hemoglobin 30.1, Mean Corpuscular Hemoglobin Concent 33.3, Red Cell Distribution Width 11.7, Neutrophils (%) (Auto) 66.0, Lymphocytes (%) (Auto) 20.9 L, Monocytes (%) (Auto) 9.6 H, Eosinophils (%) (Auto) 2.7, Basophils (%) (Auto) 0.4, Neutrophils # (Auto) 6.4, Lymphocytes # (Auto) 2.0, Monocytes # (Auto) 0.9 H, Eosinophils # (Auto) 0.3, Basophils # (Auto) 0.0, Calcium Level 8.8 Vital Signs Date Time Temp Pulse Resp B/P (MAP) Pulse Ox O2 Delivery O2 Flow Rate FiO2 08/16/18 06:00 99.0 87 18 130/75 (93) 93 Room Air I&O- Last 24 Hours up to 6 AM 08/16/18 06:00 Intake Total 1090 ml Output Total 0 ml Balance 1090 ml DOROTHY SAM MD Aug 16, 2018 15:15
[2018-08-16] MEDS: HEPARIN SOD (PORCINE) 5000 UNITS/ML VIAL SQ SCH ×2 (15:45→21:14)
[2018-08-16] MEDS: GABAPENTIN 300 MG CAP PO SCH (21:15)
[2018-08-16 22:00] VITALS: BP 135/74
[2018-08-17] MEDS: PIPERACILLIN/TAZOBACTAM SOD 2.25 GM in D5W MINI-BAG PLUS 50 ML IV SCH ×2 (05:39→13:51)
[2018-08-17] MEDS: HEPARIN SOD (PORCINE) 5000 UNITS/ML VIAL SQ SCH ×3 (05:40→22:17)
[2018-08-17 06:00] VITALS: BP 145/75
[2018-08-17 06:17] LABS: BASO # 0.1 10^3/uL (0.0-0.2); BASO % 0.6 % (0.0-1.0); EOS # 0.3 10^3/uL (0.0-0.50); EOS % 3.6 % (0.0-3.0); HEMATOCRIT 24.9 % (42.0-52.0); HEMOGLOBIN 8.2 g/dl (13.5-17.5); LYMPH # 2.1 10^3/uL (1.5-4.5); LYMPH % 24.1 % (24.0-44.0); MEAN CORPUSCULAR HEMOGLOBIN 30.5 pg (27.0-33.0); MEAN CORPUSCULAR HGB CONC 32.9 g/dl (32.0-36.5); MEAN CORPUSCULAR VOLUME 92.6 fl (80.0-96.0); MONO # 0.7 10^3/uL (0.0-0.8); MONO % 8.1 % (0.0-5.0); NEUTROPHILS # 5.5 10^3/uL (1.8-7.7); NEUTROPHILS % 62.9 % (36.0-66.0); PLATELET COUNT, AUTOMATED 340 10^3/uL (150-450); RED BLOOD COUNT 2.69 10^6/uL (4.30-6.10); WHITE BLOOD COUNT 8.8 10^3/uL (4.0-10.0)
[2018-08-17 06:47] LABS: CALCIUM LEVEL 9.3 MG/DL (8.5-10.1); CREATININE FOR GFR 1.63 MG/DL (0.70-1.30); GLOMERULAR FILTRATION RATE 48.3 (>60); POTASSIUM SERUM 3.7 MEQ/L (3.5-5.1)
[2018-08-17] MEDS: HumaLOG INSULIN (NovoLOG) PER UNIT SC SCH ×4 (07:48→22:17)
[2018-08-17] MEDS: DEXTROSE 50% 50 ML SYRINGE IV PRN (08:29)
[2018-08-17] MEDS: PRAVASTATIN 20 MG TAB PO SCH (09:26)
[2018-08-17] MEDS: FERROUS SULFATE 325MG TAB PO SCH (09:26)
[2018-08-17] MEDS: MULTIVITAMINS/MINERALS THERAP 1 TAB PO SCH (09:26)
[2018-08-17] MEDS: buPROPion **XL** TABLET 150MG (WELLBUTRIN XL) PO SCH (09:26)
[2018-08-17] MEDS: GENVOYA PO SCH (09:27)
[2018-08-17] MEDS: LEVEMIR (INSULIN DETEMIR) 1 UNITS/0.01ML SC SCH (09:41)
[2018-08-17 14:00] VITALS: BP 142/86
--- NOTE | 2018-08-17 15:34 | IPNPDOC ---
Text Note Date of Service The patient was seen on 08/17/18. NOTE Subjective: No acute changes overnight. Feels well. Had an episode of hypogl ycemia this am. Objective: Vitals: (see below) General: No acute distress, laying comfortably in bed. HEENT: Moist mucous membranes. Neck: No JVD or lymphadenopathy Cardiac: RRR, No murmurs Pulm: Clear to auscultation b/l. No wheezing, rhonchi Abd: NT/ND + BS Ext: No edema or cyanosis. Distal pulses intact. Infected area of the left metatarsal appears clean and dry. No drainage. No erythema. No cellulitis. Labs (see below) Images: X-ray foot 08/14/18 Impression: Changes consistent with osteomyelitis of the distal end of the first metatarsal. Assessment/Plan 1. Sepsis secondary to acute osteomyelitis infected diabetic foot ulcer/- patient with MSSA and group B strep on wound culture. Patient also has bone pathology with acute osteomyelitis. Leukocytosis improving. Afebrile. Wound car e. Discussed with Dr. Magallon, who will ask Dr. Ptael to see patient for ?removal of metatarsal head vs toe. Dr. Avendaño consulted. 2. Chronic kidney disease. Creatinine improving. Avoid nephrotoxins. 3. Diabetes mellitus continue Levemir and sliding scale insulin. Had an episode of hypoglycemia this am. PM levemir d/c. 4. Hypertension stable. 5. Hyperlipidemia on statin 6. History of HIV continue home meds 7. Anemia of chronic disease and iron deficiency anemia -stable. Continue iron supplementation. No need for transfusion at this time. 8. GERD on PPI DVT prophy: Heparin subcutaneous Overall prognosis guarded. VS,Fishbone, I+O VS, Fishbone, I+O Laboratory Tests 08/17/18 05:34 Red Blood Count 2.69 L, Mean Corpuscular Volume 92.6, Mean Corpuscular Hemoglobin 30.5, Mean Corpuscular Hemoglobin Concent 32.9, Red Cell Distribution Width 11.8, Neutrophils (%) (Auto) 62.9, Lymphocytes (%) (Auto) 24.1, Monocytes (%) (Auto) 8.1 H, Eosinophils (%) (Auto) 3.6 H, Basophils (%) (Auto) 0.6, Neutrophils # (Auto) 5.5, Lymphocytes # (Auto) 2.1, Monocytes # (Auto) 0.7, Eosinophils # (Auto) 0.3, Basophils # (Auto) 0.1, Calcium Level 9.3 Vital Signs Date Time Temp Pulse Resp B/P (MAP) Pulse Ox O2 Delivery O2 Flow Rate FiO2 08/17/18 14:00 98.8 86 16 142/86 (104) 96 Room Air I&O- Last 24 Hours up to 6 AM 08/17/18 06:00 Intake Total 1560 ml Output Total 0 ml Balance 1560 ml DOROTHY SAM MD Aug 17, 2018 15:34
[2018-08-17] MEDS ORDERED: LEVEMIR (INSULIN DETEMIR) 1 UNITS/0.01ML SC ONE (15:45)
[2018-08-17] MEDS ORDERED: PROHANCE 279.3MG/ML 5ML VIAL (A9576) As Ordered ONE (21:26)
[2018-08-17 22:00] VITALS: BP 119/63
[2018-08-17] MEDS: GABAPENTIN 300 MG CAP PO SCH (22:17)
[2018-08-18] MEDS: HEPARIN SOD (PORCINE) 5000 UNITS/ML VIAL SQ SCH ×3 (05:41→21:05)
[2018-08-18 06:00] VITALS: BP 132/78
[2018-08-18 06:32] LABS: BASO # 0.1 10^3/uL (0.0-0.2); BASO % 0.6 % (0.0-1.0); EOS # 0.3 10^3/uL (0.0-0.50); EOS % 3.3 % (0.0-3.0); HEMATOCRIT 25.6 % (42.0-52.0); HEMOGLOBIN 8.4 g/dl (13.5-17.5); LYMPH # 1.9 10^3/uL (1.5-4.5); LYMPH % 23.6 % (24.0-44.0); MEAN CORPUSCULAR HEMOGLOBIN 29.9 pg (27.0-33.0); MEAN CORPUSCULAR HGB CONC 32.8 g/dl (32.0-36.5); MEAN CORPUSCULAR VOLUME 91.1 fl (80.0-96.0); MONO # 0.6 10^3/uL (0.0-0.8); MONO % 7.5 % (0.0-5.0); NEUTROPHILS # 5.2 10^3/uL (1.8-7.7); NEUTROPHILS % 64.3 % (36.0-66.0); PLATELET COUNT, AUTOMATED 415 10^3/uL (150-450); RED BLOOD COUNT 2.81 10^6/uL (4.30-6.10); WHITE BLOOD COUNT 8.1 10^3/uL (4.0-10.0)
[2018-08-18 07:03] LABS: C REACTIVE PROTEIN QUANTITATIV 12.2 MG/DL (0.00-0.30); CALCIUM LEVEL 9.1 MG/DL (8.5-10.1); CREATININE FOR GFR 1.54 MG/DL (0.70-1.30); ERYTHROCYTE SEDIMENTATION RATE 127 mm/hr (0-15); GLOMERULAR FILTRATION RATE 51.6 (>60); POTASSIUM SERUM 3.8 MEQ/L (3.5-5.1)
--- NOTE | 2018-08-18 07:03 | CR ---
DATE OF CONSULTATION: 08/17/2018 REASON FOR CONSULTATION: Left foot infection. HISTORY OF PRESENT ILLNESS: Martina Snow is a 48-year-old male who was admitted due to left foot infection. He has been following with Dr. Magallon for chronic left foot ulceration. He had been seen by myself a few weeks ago for possible toe surgery to improve the position of the hallux as it was causing increased force onto the first metatarsal head. Since he has been seen over the last week the wound has worsened. He was seen in Dr. Magallon's office and was noted to be febrile and was sent to the emergency room . He is being treated for osteomyelitis which is shown on x-ray with intravenous (IV) therapy with some improvement. PAST MEDICAL HISTORY SIGNIFICANT FOR: 1. Hypertension. 2. Hyperlipidemia. 3. HIV. 4. Diabetes. 5. Diabetic neuropathy. 6. Chronic kidney disease stage III. ALLERGIES: NO KNOWN DRUG ALLERGIES. FAMILY HISTORY: Noncontributory. SOCIAL HISTORY : Denies alcohol or drug use. HOME MEDICATIONS: - Align - bupropion - gabapentin - Genvoya - Lantus - Lispro insulin - protein - losartan - omeprazole - potassium REVIEW OF SYSTEMS: Denies nausea, vomiting, fever or chills. Temperature: He has been afebrile over the last 24 hours. LABORATORY DATA: Reviewed. White blood cell count 8.8, improved from 12.3 on admission. Hemoglobin 8.2, C-reactive protein (CRP) remains elevated at 19 improved from 25.6 on admission. Foot x-ray is reviewed, previous amputation of the second toe and metatarsal are noted. Dislocation of the left hallux is present as previously noted. There is some further erosive changes at the distal metatarsal head suggestive of osteomyelitis. No soft tissue gas or emphysema. Lower extremity examination : There is erythema and edema to the left foot. There is a wound noted at the first metatarsal head with palpable bone. No significant necrotic tissue is present. ASSESSMENT: This is a 48-year-old male with left hallux osteomyelitis. PLAN: Treatment options discussed. At this point due to septic nature of wound would recommend first metatarsal resection as well as toe relocation. The patient wishes to discuss this with his family before ultimately deciding to proceed. Will tentatively plan for Friday if the patient is amenable. Continue antibiotics. Infectious disease has been consulted. An MRI has been ordered. Will further evaluate based on these results. Will follow.
[2018-08-18] MEDS: HumaLOG INSULIN (NovoLOG) PER UNIT SC SCH ×4 (07:30→21:00)
[2018-08-18] MEDS: FERROUS SULFATE 325MG TAB PO SCH (07:55)
[2018-08-18] MEDS: LEVEMIR (INSULIN DETEMIR) 1 UNITS/0.01ML SC SCH (07:55)
[2018-08-18] MEDS: PRAVASTATIN 20 MG TAB PO SCH (07:55)
[2018-08-18] MEDS: MULTIVITAMINS/MINERALS THERAP 1 TAB PO SCH (07:55)
[2018-08-18] MEDS: buPROPion **XL** TABLET 150MG (WELLBUTRIN XL) PO SCH (07:55)
[2018-08-18] MEDS: GENVOYA PO SCH (07:56)
--- NOTE | 2018-08-18 08:29 | IPNPDOC ---
Date Seen The patient was seen on 08/18/18. Progress Note Subjective: Patient was seen and examined this morning at bedside. At the time of exam the patient had not spoken to his mother regarding the surgery and hasn't decided if he was going to have it done. He does not have any complaint today and was not very communicative this morning. There was no acute changes overnight. Objective: Vitals: (see below) General: No acute distress, laying comfortably in bed. HEENT: Moist mucous membranes. Neck: No JVD or lymphadenopathy Cardiac: RRR, No murmurs Pulm: Clear to auscultation b/l. No wheezing, rhonchi Abd: NT/ND + BS Ext: No edema or cyanosis. Distal pulses intact. Infected area of the left metatarsal appears clean and dry. No drainage. No erythema. No cellulitis. Labs (see below) Images: X-ray foot 08/14/18 Impression: Changes consistent with osteomyelitis of the distal end of the first metatarsal. Assessment/Plan 1. Sepsis secondary to acute osteomyelitis infected diabetic foot ulcer - wound culture: MSSA and group B strep -x-ray and Bone pathology: acute osteomyelitis. MRI foot report pending -Leukocytosis improved and afebrile -Dr. Patel recommend first metatarsal resection as well as toe relocation on fri. but patient would like to discuss with mother first. -Dr. Avendaño consulted for antibiotics management. -c/w with Cefazolin q12H per ID 2. Chronic kidney disease -Creatinine at baseline (1.60) -will continue to avoid nephrotoxins (held home losartan) for now -monitor closely 3. Diabetes mellitus -continue Levemir AM 60 units. -Sugar was high in the evening. should improve with AM levemir will monitor c/w sliding scale insulin. 4. Hypertension -stable -continue monitor -held home losartan for problem #2. 5. Hyperlipidemia c/w statin 6. History of HIV -c/w home Genvoya 7. Anemia of chronic disease and iron deficiency anemia -stable -c/w iron supplementation. -No need for transfusion at this time. 8. GERD -c/w PPI 9. DVT prophy: Heparin subcutaneous 10. Overall prognosis guarded. Disposition: Pending possible surgery on Fri. VS, I&O, 24H, Fishbone Vital Signs/I&O Vital Signs Date Time Temp Pulse Resp B/P (MAP) Pulse Ox O2 Delivery O2 Flow Rate FiO2 08/18/18 06:00 98.0 78 15 132/78 (96) 97 Room Air I&O- Last 24 Hours up to 6 AM 08/18/18 06:00 Intake Total 2270 ml Output Total 0 ml Balance 2270 ml Laboratory Data 24H LABS Laboratory Tests 2 08/17/18 09:22: Bedside Glucose (Misc Panel) 233H 08/17/18 11:23: Bedside Glucose (Misc Panel) 337H 08/17/18 14:06: Bedside Glucose (Misc Panel) 368H 08/17/18 16:30: Bedside Glucose (Misc Panel) 594*H 08/18/18 05:52: Immature Granulocyte % (Auto) 0.7, White Blood Count 8.1, Red Blood Count 2.81L, Hemoglobin 8.4L, Hematocrit 25.6L, Mean Corpuscular Volume 91.1, Mean Corpuscular Hemoglobin 29.9, Mean Corpuscular Hemoglobin Concent 32.8, Red Cell Distribution Width 11.8, Platelet Count 415, Neutrophils (%) (Auto) 64.3, Lymphocytes (%) (Auto) 23.6L, Monocytes (%) (Auto) 7.5H, Eosinophils (%) (Auto) 3.3H, Basophils (%) (Auto) 0.6, Neutrophils # (Auto) 5.2, Lymphocytes # (Auto) 1.9, Monocytes # (Auto) 0.6, Eosinophils # (Auto) 0.3, Basophils # (Auto) 0.1, Nucleated Red Blood Cells % (auto) 0.0, Erythrocyte Sedimentation Rate 127H, Anion Gap 9, Glomerular Filtration Rate 51.6L, Blood Urea Nitrogen 21H, Creatinine 1.54H, Sodium Level 140, Potassium Level 3.8, Chloride Level 104, Carbon Dioxide Level 27, Calcium Level 9.1, C-Reactive Protein, Quantitative 12.20H CBC/BMP Laboratory Tests 08/18/18 05:52 Red Blood Count 2.81 L, Mean Corpuscular Volume 91.1, Mean Corpuscular Hemoglobin 29.9, Mean Corpuscular Hemoglobin Concent 32.8, Red Cell Distribution Width 11.8, Neutrophils (%) (Auto) 64.3, Lymphocytes (%) (Auto) 23.6 L, Monocytes (%) (Auto) 7.5 H, Eosinophils (%) (Auto) 3.3 H, Basophils (%) (Auto) 0.6, Neutrophils # (Auto) 5.2, Lymphocytes # (Auto) 1.9, Monocytes # (Auto) 0.6, Eosinophils # (Auto) 0.3, Basophils # (Auto) 0.1, Calcium Level 9.1 Microbiology Microbiology 08/12/18 Blood Culture - Final, Complete NO GROWTH AFTER 5 DAYS 08/12/18 Blood Culture - Final, Complete NO GROWTH AFTER 5 DAYS GME ATTESTATION GME ATTESTATION My faculty preceptor for this patient encounter was physically present during the encounter and was fully available. All aspects of the patient interview, examination, medical decision making process, and medical care plan development were reviewed and approved by the faculty preceptor. The faculty preceptor is aware and concurs with the plan as stated in the body of this note and will attest to such by his/her cosignature. NAE WELLINGTON DO Aug 18, 2018 08:29
--- NOTE | 2018-08-18 08:38 | REP ---
MRI left foot without and with IV gadolinium: History: Osteomyelitis of the ankle and foot. Acute sepsis. Gadolinium enhancement dose: 7 ml of intravenous ProHance. Half dose protocol. Comparison radiographs August 12, 2018. The radiographs show bony erosive change consistent with acute osteomyelitis involving the distal end of the first metatarsal. Technique: Axial, coronal, and sagittal imaging planes are utilized. T1 and T2-weighted scans were obtained in the usual fashion with and without fat saturation. MRI findings: The second digit has been amputated at the level of the proximal metatarsal. Just distal to this, today's MRI images demonstrate a loculated fluid collection which measures 2.3 x 0.8 x 1.5 cm. This demonstrates low T1 signal intensity and some peripheral enhancement postcontrast. I cannot exclude a soft tissue abscess. The bone adjacent to this however, the remaining fragment of the second metatarsal shows normal signal intensity on T1 and T2-weighted scans. There is abnormal bone marrow signal intensity on T1 and T2-weighted scans in the distal end of the first metatarsal. There is a soft tissue deficit over the volar and medial aspect of the distal end of the first metatarsal consistent with a large ulcer extending to the bone. There is missing bony cortical margin here consistent with bony erosion. This correlates with the radiographic findings. There is contrast enhancement in this portion of the distal first metatarsal and the changes are consistent with osteomyelitis. There is a hyperextension deformity at the first MTP joint consistent with flexor tendon disruption. The proximal phalanx and distal phalanx of the great toe show normal signal intensity. There is some dorsal joint and tendon fluid over the midfoot more laterally. Cortical and medullary bone signal intensity are otherwise normal. Impression: There are changes consistent with osteomyelitis involving the volar and medial aspect of the distal end of the first metatarsal with overlying soft tissue deficit. No other evidence of osteomyelitis is seen. There is a fluid collection distal to the amputated second metatarsal of uncertain etiology. Abscess cannot be excluded, but the bone adjacent to this shows normal signal intensity. There is a small quantity of joint fluid dorsally over the midfoot as well more laterally. Electronically Signed by Damion Sanford MD 08/18/2018 05:28 P
--- NOTE | 2018-08-18 10:16 | CR ---
DATE OF CONSULTATION: 08/17/2018 INFECTIOUS DISEASE CONSULTATION: I was asked to consult by hospitalist for osteomyelitis of the left foot. HISTORY OF PRESENT ILLNESS: Martina is a 48-year-old patient with a history of insulin-dependent diabetes, HIV, diabetic neuropathy, who has had a chronic left diabetic foot ulcer since February of 2018. Initially, he was hospitalized at [facility], had surgery done and debridement done of that ulcer, treated with some antibiotics. Since then, he has followed up with Dr. Magallon. He had not been recently on antibiotics. About couple days prior to admission, the patient started having fever, chills and the wound started to look worse. He was seen by Dr. Magallon's office, who debrided the wound and recommended he goes to the emergency room as he was looking septic. He was given intravenous (IV) fluids. His temperature was up to 103. His white count was elevated at 12,000. The patient was started on IV vancomycin. LABORATORY DATA: Blood cultures two sets were negative. Wound culture from an outpatient visit had MSSA and group G strep. Group G strep was resistant to clindamycin, erythromycin and tetracycline. MSSA was only resistant to penicillin. Both pathogens were moderate to heavy growth. A foot x-ray done on 08/12/2018 shows changes consistent with osteomyelitis of the distal end of the first metatarsal, extensive deformity of the first metatarsophalangeal joint (MTP) joint. There is soft tissue deficit over the distal end of the first metatarsal and cortical bony erosive changes and some soft tissue gas. ALLERGIES: NO KNOWN DRUG ALLERGIES. MEDICATIONS: - Levemir 60 units subcu daily - bupropion 300 mg by mouth daily - ferrous sulfate 325 mg by mouth daily - multivitamin 1 tablet daily - Pravachol 20 mg by mouth daily - insulin sliding scale before food and nightly - gabapentin 600 mg by mouth nightly - IV vancomycin and Zosyn 2.25 grams IV every 8 hours. LABORATORY DATA: White count on admission was 12.3, today was 8.8, hemoglobin 8.2, hematocrit 24.9, platelets 340, 62% neutrophils, 24% lymphocytes, 8% monocytes. Sodium 139, potassium 3.7, chloride 103, bicarbonate 28, BUN 23, creatinine 1.63, glucose 443, HbA1c is 8.6. Influenza A and B were negative. On physical exam, he is a sick-looking, frail gentleman, in no acute distress. Temperature is 98.8, pulse 86, respirations 16, blood pressure 142/86, oxygen saturation 96% on room air. Heart: Normal S1, S2 with no murmurs, rubs or gallops. Lungs are clear. No wheezes, rales or rhonchi. Abdomen is soft, nontender. No visceromegaly. Back: No costovertebral angle (CVA) or lumbosacral tenderness. Extremities: Left foot has a large ulcer on the ball of the foot measuring about 4 x 4 cm with surrounding cellulitis. No tenderness. The patient has no feelings in his feet. There is some purulent discharge. There is cellulitis extending to the dorsal aspect of the foot overlying third, fourth and fifth metatarsals. Dorsalis pedis pulse is present but diminished. IMPRESSION: This is a 48-year-old gentleman, who has had a diabetic foot ulcer for over 5 months admitted with cellulitis of left foot and acute osteomyelitis. He has Group G strep and MSSA on culture. The patient has been treated with IV vancomycin and Zosyn. This could be de-escalated to cefazolin 2 grams every 12 hours based on renal function. PLAN: Will obtain MRI of the foot to delineate extent of osteomyelitis. Patient has also an extension of his toe to closest 70-80 degrees that needs to be readjusted that happened after surgery. We will need to rule out osteomyelitis involving the big toe before the surgery happened. Ideally, the patient will be treated with a peripherally inserted central catheter (PICC) line and IV home antibiotic with cefazolin 2 grams every 12 hours. The patient is capable of doing that. His mother is a nurse, although she is going on a cruise for 3 weeks and will not be able to help but the patient is pretty competent. I have discussed with him the plan on IV antibiotic. He is somewhat with recalcitrant but is willing to do it. Consult Dr. Patel for any possible surgical intervention after MRI. Monitor complete blood count (CBC), C-reactive protein (CRP), erythrocyte sedimentation rate (ESR) weekly.
--- NOTE | 2018-08-18 13:06 | IPN ---
DATE: 08/18/2018 The patient seen and examined. Denies overnight complaints. His mother is present. Vitals are reviewed. He has remained afebrile overnight. Labs are reviewed. White blood cell count this morning is 8.1. Hemoglobin is 8.4. ESR is 127. CRP is 12.2. Creatinine is 1.54. MRI images and reports are reviewed. There is a fluid collection adjacent to the second metatarsal. Greatest diameter is 2.3 cm, which could suggest soft tissue abscess. There is abnormal bone signal at the distal first metatarsal head suggestive of osteomyelitis. No other bones appear involved. Lower Extremity Examination: Dressings clean, dry and intact. ASSESSMENT: 48-year-old male with osteomyelitis and possible abscess left foot. PLAN: Treatment options discussed. Will plan for metatarsal head excision, possible abscess drainage if present. He is to be nothing by mouth at midnight, hold morning anticoagulation.
[2018-08-18 14:00] VITALS: BP 128/79
--- NOTE | 2018-08-18 17:46 | IPN ---
DATE: 08/18/2018 Martina seems to be doing well today. He is in a better mood. His mother is at the bedside. He has no nausea, vomiting. He has mild diarrhea. No abdominal pain. No fever or chills. He is scheduled to go for debridement of the left foot tomorrow. PHYSICAL EXAM: Heart: Normal S1, S2. No murmurs, rubs or gallops. Lungs are clear. No wheezes, rales, rhonchi. Abdomen is soft, nontender. Extremities: Left foot has erythema on the dorsal aspect of the foot along the third, fourth and fifth metatarsal. He has an open ulcer measuring about 3 x 3 cm with 1 cm depth with serosanguineous discharge. There is good granulation tissue. Second toe ray amputation. MRI of the foot was reviewed, showed that there is a 2.3 x 0.8 x 1.5 cm loculated fluid collection, possibly a subcutaneous abscess. There is osteomyelitis of the first metatarsal. IMPRESSION: 1. Acute osteomyelitis of the left first metatarsal with a diabetic foot ulcer. Patient undergoing debridement of the bone tomorrow with resection of the metatarsal head. 2. Cellulitis of the left foot. Culture positive for methicillin-sensitive Staphylococcus aureus (MSSA) and group G strep on IV cefazolin 2 grams every 12 hours. 3. Insulin-dependent diabetes with diabetic neuropathy and difficult to control glucose while in the hospital. PLAN: Continue IV Kefzol, schedule PICC line for tomorrow. The patient agrees on home IV antibiotics. Probiotics one tablet twice a day. Consult patient and family services (PFS) for home IV antibiotics; hopefully anticipated discharge will be Friday or Friday. The patient will be going to the operating room (OR) tomorrow.
[2018-08-18] MEDS: LACTOBACILLUS ACIDOPHILUS CAP (BACID) PO SCH (18:26)
[2018-08-18] MEDS: GABAPENTIN 300 MG CAP PO SCH (21:05)
[2018-08-18 22:00] VITALS: BP 148/73
[2018-08-19] VITALS (7 sets, daily range): BP systolic 107–147; BP diastolic 58–81
[2018-08-19 06:15] LABS: BASO # 0.1 10^3/uL (0.0-0.2); BASO % 0.7 % (0.0-1.0); EOS # 0.2 10^3/uL (0.0-0.50); EOS % 2.7 % (0.0-3.0); HEMATOCRIT 26.2 % (42.0-52.0); HEMOGLOBIN 8.5 g/dl (13.5-17.5); LYMPH # 1.7 10^3/uL (1.5-4.5); MEAN CORPUSCULAR HEMOGLOBIN 30.1 pg (27.0-33.0); MEAN CORPUSCULAR HGB CONC 32.4 g/dl (32.0-36.5); MEAN CORPUSCULAR VOLUME 92.9 fl (80.0-96.0); MONO # 0.6 10^3/uL (0.0-0.8); MONO % 7.9 % (0.0-5.0); NEUTROPHILS # 4.7 10^3/uL (1.8-7.7); NEUTROPHILS % 64.5 % (36.0-66.0); PLATELET COUNT, AUTOMATED 430 10^3/uL (150-450); RED BLOOD COUNT 2.82 10^6/uL (4.30-6.10); WHITE BLOOD COUNT 7.3 10^3/uL (4.0-10.0)
[2018-08-19 06:57] LABS: CALCIUM LEVEL 9.1 MG/DL (8.5-10.1); CREATININE FOR GFR 1.66 MG/DL (0.70-1.30); GLOMERULAR FILTRATION RATE 47.3 (>60); POTASSIUM SERUM 4.6 MEQ/L (3.5-5.1)
[2018-08-19] MEDS: LEVEMIR (INSULIN DETEMIR) 1 UNITS/0.01ML SC SCH ×2 (10:02→22:17)
[2018-08-19] MEDS: HumaLOG INSULIN (NovoLOG) PER UNIT SC SCH ×4 (10:03→21:00)
[2018-08-19] MEDS: PRAVASTATIN 20 MG TAB PO SCH (10:03)
[2018-08-19] MEDS: LACTOBACILLUS ACIDOPHILUS CAP (BACID) PO SCH ×2 (10:03→18:20)
[2018-08-19] MEDS: FERROUS SULFATE 325MG TAB PO SCH (10:03)
[2018-08-19] MEDS: MULTIVITAMINS/MINERALS THERAP 1 TAB PO SCH (10:04)
[2018-08-19] MEDS: GENVOYA PO SCH (10:04)
[2018-08-19] MEDS: buPROPion **XL** TABLET 150MG (WELLBUTRIN XL) PO SCH (10:04)
[2018-08-19] MEDS ORDERED: BUPIVACAINE HCL 0.5% 30 ML VIAL As Ordered ONE (10:27)
[2018-08-19] MEDS ORDERED: LIDOCAINE 1% MDV 20ML VIAL As Ordered ONE ×2 (10:27→11:48)
[2018-08-19] MEDS ORDERED: dexameTHASONE 4 MG/ML 1ML VIAL (J1100) As Ordered ONE (10:27)
[2018-08-19] MEDS ORDERED: fentaNYL 100 MCG/2 ML INJECTION (J3010) As Ordered ONE (12:17)
[2018-08-19] MEDS ORDERED: LIDOCAINE 2% INJ 100 MG/5 ML SDV (FOR ANES.) As Ordered ONE (12:17)
[2018-08-19] MEDS ORDERED: MIDAZOLAM INJ 2 MG/2 ML VIAL (J2250) As Ordered ONE (12:17)
[2018-08-19] MEDS ORDERED: PROPOFOL 500 MG/50 ML VIAL As Ordered ONE (12:17)
--- NOTE | 2018-08-19 14:44 | RO ---
DATE OF PROCEDURE: 08/18/2018 PREPROCEDURE DIAGNOSIS: Left foot osteomyelitis and infection. POSTPROCEDURE DIAGNOSIS: Left foot osteomyelitis and infection. PROCEDURE: Left foot 1st metatarsal head resection. Extensor tendon lengthening and incision and drainage. SURGEON: Dr. Min Patel DPM. POT PUSHER: None. ANESTHESIA: Monitored anesthesia care. Preoperative injection of 20 mL of 1:1 mixture of 1% lidocaine plain and 0.5% Marcaine plain. ESTIMATED BLOOD LOSS: Minimal. MATERIALS: #3-0 nylon and #3-0 Vicryl. INJECTABLES: None. SPECIMENS: Left 1st metatarsal head and culture swab of purulent aerobic and anaerobic gram stain. COMPLICATIONS: None. CONDITION: Stable. Martina Snow is a 48-year-old gentleman who was admitted on 08/12/2018 with left foot infection. He is being treated with IV antibiotics. He had an MRI which showed signs of osteomyelitis of the 1st metatarsal head as well as possible abscess adjacent to the remaining portion of the 2nd metatarsal. The decision made to bring him to the operating room for metatarsal head resection as well as incision and drainage and relocation of the 1st toe. The patient's side and site were identified and marked in preoperative holding area. Consent was reviewed and obtained. All risks, complications and alternatives to the procedure were explained to the patient in detail and all questions were answered. DESCRIPTION OF PROCEDURE: The patient was brought to the operating room and placed on the operating room table in the supine position. Monitored anesthesia care was delivered by the anesthesia team. Preoperative injection of 20 mL of 1:1 mixture of 1% lidocaine plain and 1/2% Marcaine plain was injected in the left foot. The left foot was prepped and draped in the normal sterile fashion. A tourniquet was applied to the left ankle and inflated to 225 mmHg Attention was first paid to the 1st toe. A dorsal incision was drawn over the metatarsophalangeal joint. There was significant contracture of the 1st toe with extension deformity. The toe is dislocated at the metatarsophalangeal joint level. It is inspected inferiorly and the flexor tendon had been transected or eroded from previous infections and wounds resulting in the extension deformity. The extensor tendon transected in the lengthening fashion. Dorsal capsulotomy was performed to expose the metatarsal head. Following this, using a sagittal saw, the metatarsal head was excised. Dorsal contractions of the adductor tendon capsule and other soft tissue adhesions were debrided to place the toe in a more planar flexed position. The extensor tendon was then repaired in a lengthened position. The site was irrigated with normal saline and the dorsal incision was repaired with #3-0 nylon. Attention was then paid to the 2nd metatarsal. An incision was made over the site as suggested by the MRI that may have abscess. Immediate purulent fluid was noted. This was cultured by aerobic, anaerobic and sent for Gram stain. A Yudi instrument was inserted to find tracking which was headed laterally along the extensor tendons. An ancillary incision was made at the lateral aspect of the foot. Purulent track appeared to run inferior to the extensor tendons to the lesser toes. The site was irrigated with normal saline until no further purulence was identified. Plain packing was placed from the dorsal incision into the lateral incision and then sterile dressings were applied. The patient was brought to the postanesthesia care unit (PACU), vital signs stable, neurovascularly status intact. He will be re-admitted to the floor for continued antibiotics. Will require additional surgery either further incision and drainage or wound closure depending on progression of infection. Will follow.
[2018-08-19] MEDS ORDERED: NORCO, ANEXSIA 5/325MG TABLET (HYDROcodone/ACETAMINOPHEN) PO PRN (14:45)
[2018-08-19] MEDS ORDERED: ONDANSETRON 4MG/2ML VIAL (J2405) IV PRN (14:45)
[2018-08-19] MEDS ORDERED: LR 1,000 ML IV SCH (14:45)
[2018-08-19] MEDS ORDERED: SODIUM CHLORIDE 0.9% INJ 10 ML SYR IV PRN (15:15)
[2018-08-19] MEDS: DEXTROSE 50% 50 ML SYRINGE IV PRN ×2 (15:15→17:06)
[2018-08-19] MEDS ORDERED: PERCOCET 5MG/325MG TAB PO PRN (15:30)
--- NOTE | 2018-08-19 16:21 | IPNPDOC ---
Date Seen The patient was seen on 08/19/18. Progress Note Subjective: Patient was seen and examined this morning at bedside. Is currently NPO for he is having his foot surgery today. He has so discussed with Dr. Avendaño about continuing with outpatient IV antibiotcs. He has no complaints this morning. No overnight events as well. Objective: Vitals: (see below) General: No acute distress, laying comfortably in bed. HEENT: Moist mucous membranes. Neck: No JVD or lymphadenopathy Cardiac: RRR, No murmurs Pulm: Clear to auscultation b/l. No wheezing, rhonchi Abd: NT/ND + BS Ext: No edema or cyanosis. Distal pulses intact. Infected area of the left me tatarsal appears clean and dry. No drainage. No erythema. Labs (see below) Images: X-ray foot 08/14/18 Impression: Changes consistent with osteomyelitis of the distal end of the first metatarsal. Assessment/Plan 1. Sepsis secondary to acute osteomyelitis infected diabetic foot ulcer - wound culture: MSSA and group B strep -x-ray and Bone pathology: acute osteomyelitis. MRI foot report pending -Dr. Avendaño and Dr. Patel consulted -Leukocytosis improved and afebrile - first metatarsal resection as well as toe relocation surgery today - per ID c/w with Cefazolin q12H, PICC placement for Home IV antibiotics. - Probiotics twice a day 2.Chronic kidney disease -Creatinine at baseline (1.60) -will continue to avoid nephrotoxins (held home losartan) for now -monitor closely 3. Diabetes mellitus -continue Levemir AM 60 units. -Sugar was high in the evening. should improve with AM levemir will monitor c/w sliding scale insulin. 4. Hypertension -stable -continue monitor -held home losartan for problem #2. 5. Hyperlipidemia c/w statin 6. History of HIV -c/w home Genvoya 7. Anemia of chronic disease and iron deficiency anemia -stable -c/w iron supplementation. -No need for transfusion at this time. 8. GERD -c/w PPI 9. PFS -set up home IV antibiotics 9. DVT prophy: Heparin subcutaneous Disposition: surgery today, set home IV antibiotics, possible discharge Friday/Friday, VS, I&O, 24H, Fishbone Vital Signs/I&O Vital Signs Date Time Temp Pulse Resp B/P (MAP) Pulse Ox O2 Delivery O2 Flow Rate FiO2 08/19/18 06:00 98.9 86 16 133/70 (91) 93 Room Air I&O- Last 24 Hours up to 6 AM 08/19/18 06:00 Intake Total 1590 ml Output Total 0 ml Balance 1590 ml Laboratory Data 24H LABS Laboratory Tests 2 08/18/18 20:58: Bedside Glucose (Misc Panel) 101 08/19/18 01:04: Bedside Glucose (Misc Panel) 308H 08/19/18 05:47: Immature Granulocyte % (Auto) 1.2, White Blood Count 7.3, Red Blood Count 2.82L, Hemoglobin 8.5L, Hematocrit 26.2L, Mean Corpuscular Volume 92.9, Mean Corpuscula r Hemoglobin 30.1, Mean Corpuscular Hemoglobin Concent 32.4, Red Cell Distribution Width 11.7, Platelet Count 430, Neutrophils (%) (Auto) 64.5, Lymphocytes (%) (Auto) 23.0L, Monocytes (%) (Auto) 7.9H, Eosinophils (%) (Auto) 2.7, Basophils (%) (Auto) 0.7, Neutrophils # (Auto) 4.7, Lymphocytes # (Auto) 1.7, Monocytes # (Auto) 0.6, Eosinophils # (Auto) 0.2, Basophils # (Auto) 0.1, Nucleated Red Blood Cells % (auto) 0.0, Anion Gap 8, Glomerular Filtration Rate 47.3L, Blood Urea Nitrogen 24H, Creatinine 1.66H, Sodium Level 134L, Potassium Level 4.6#, Chloride Level 100, Carbon Dioxide Level 26, Calcium Level 9.1 CBC/BMP Laboratory Tests 08/19/18 05:47 Red Blood Count 2.82 L, Mean Corpuscular Volume 92.9, Mean Corpuscular Hemoglobin 30.1, Mean Corpuscular Hemoglobin Concent 32.4, Red Cell Distribution Width 11.7, Neutrophils (%) (Auto) 64.5, Lymphocytes (%) (Auto) 23.0 L, Monocytes (%) (Auto) 7.9 H, Eosinophils (%) (Auto) 2.7, Basophils (%) (Auto) 0.7, Neutrophils # (Auto) 4.7, Lymphocytes # (Auto) 1.7, Monocytes # (Auto) 0.6, Eosinophils # (Auto) 0.2, Basophils # (Auto) 0.1, Calcium Level 9.1 Microbiology Microbiology 08/12/18 Blood Culture - Final, Complete NO GROWTH AFTER 5 DAYS 08/12/18 Blood Culture - Final, Complete NO GROWTH AFTER 5 DAYS GME ATTESTATION GME ATTESTATION My faculty preceptor for this patient encounter was physically present during the encounter and was fully available. All aspects of the patient interview, examination, medical decision making process, and medical care plan development were reviewed and approved by the faculty preceptor. The faculty preceptor is aware and concurs with the plan as stated in the body of this note and will a ttest to such by his/her cosignature. NAE WELLINGTON DO Aug 19, 2018 08:25
--- NOTE | 2018-08-19 17:22 | REP ---
Procedure: PICC line insertion with Carey The procedure was performed under the direct supervision of Dr. Sanford. The risks and benefits of the procedure were explained to the patient and informed consent was obtained. The right basilic vein was localized using ultrasound guidance. The skin was prepped and draped in a sterile fashion. 2% lidocaine was used as a local anesthetic. Using ultrasound guidance the basilic vein was cannulated and a 0.018 guidewire was inserted and advanced to the SVC using fluoroscopic guidance. The needle was removed and a 4.5 Maldivian dilator and peel-away sheath was inserted over the guide wire. A 4.5 [place]ian single lumen catheter was cut to length of 43 cm. The dilator was removed and the catheter was inserted over the guide wire with the tip ending in the SVC. The peel-away sheath was removed and the catheter was flushed with heparinized saline as per Hospital protocol. The catheter was affixed to the skin and a sterile dressing was applied. The patient tolerated the procedure well and there were no immediate complications. 0.1 minutes of fluoro time was utilized for this procedure. Reviewed by KAYLEE West 08/19/2018 02:27 P Electronically Signed by Damion Sanford MD 08/19/2018 05:13 P
[2018-08-19] MEDS: SODIUM CHLORIDE 0.9% INJ 10 ML SYR IV SCH (18:00)
[2018-08-19] MEDS: ACETAMINOPHEN TAB 650MG DOSE (2X325MG) PO PRN (21:21)
[2018-08-19] MEDS: GABAPENTIN 300 MG CAP PO SCH (21:21)
--- NOTE | 2018-08-19 21:54 | REP ---
Clinical: Febrile . Comparison: 08/12/2018 . Findings: The mediastinum and cardiac silhouette are stable and within normal limits for portable technique. PICC line identified via the right upper extremity extending to the SVC. The lung comer are clear without acute consolidation, effusion, or pneumothorax. Skeletal structures are intact. Impression: No acute cardiopulmonary process appreciated. Electronically Signed by Krishna Gerard MD 08/19/2018 09:45 P
[2018-08-19 22:46] LABS: APPEARANCE, URINE HAZY (CLEAR); BACTERIA, URINE AUTO NEGATIVE (NEGATIVE); BILIRUBIN, URINE AUTO NEGATIVE (NEGATIVE); BLOOD, URINE BLOOD NEGATIVE (NEGATIVE); COLOR, URINE YELLOW (YELLOW); GLUCOSE, URINE (UA) AUTO 3+ mg/dL (NEGATIVE); KETONE, URINE AUTO NEGATIVE (NEGATIVE); LEUKOCYTE ESTERASE, URINE AUTO NEGATIVE (NEGATIVE); NITRITE, URINE AUTO NEGATIVE (NEGATIVE); PROTEIN, URINE AUTO 2+ mg/dL (NEGATIVE); RBC, URINE AUTO 0 /HPF (0-3); SQUAMOUS EPITHELIAL CELL UR AU 0 /HPF (0-6); UROBILINOGEN, URINE AUTO 0.2 mg/dL (0.0-2.0); WBC, URINE AUTO 1 /HPF (0-3)
[2018-08-20 02:00] VITALS: BP 134/74
[2018-08-20] MEDS: ACETAMINOPHEN TAB 650MG DOSE (2X325MG) PO PRN ×2 (03:07→22:00)
[2018-08-20] MEDS: SODIUM CHLORIDE 0.9% INJ 10 ML SYR IV SCH ×2 (05:51→17:31)
[2018-08-20 06:00] VITALS: BP_SYST 11; BP_SYST 111; BP_DIAS 71
[2018-08-20 06:19] LABS: BASO # 0.1 10^3/uL (0.0-0.2); BASO % 0.6 % (0.0-1.0); EOS # 0.2 10^3/uL (0.0-0.50); EOS % 1.6 % (0.0-3.0); HEMATOCRIT 23.9 % (42.0-52.0); HEMOGLOBIN 7.9 g/dl (13.5-17.5); LYMPH # 1.8 10^3/uL (1.5-4.5); LYMPH % 17.2 % (24.0-44.0); MEAN CORPUSCULAR HEMOGLOBIN 30.9 pg (27.0-33.0); MEAN CORPUSCULAR HGB CONC 33.1 g/dl (32.0-36.5); MEAN CORPUSCULAR VOLUME 93.4 fl (80.0-96.0); MONO % 9.2 % (0.0-5.0); NEUTROPHILS # 7.3 10^3/uL (1.8-7.7); NEUTROPHILS % 70.5 % (36.0-66.0); PLATELET COUNT, AUTOMATED 453 10^3/uL (150-450); RED BLOOD COUNT 2.56 10^6/uL (4.30-6.10); WHITE BLOOD COUNT 10.3 10^3/uL (4.0-10.0)
[2018-08-20] MEDS: HEPARIN SOD (PORCINE) 5000 UNITS/ML VIAL SQ SCH ×3 (06:19→21:51)
[2018-08-20 06:33] LABS: CALCIUM LEVEL 8.5 MG/DL (8.5-10.1); CREATININE FOR GFR 1.75 MG/DL (0.70-1.30); GLOMERULAR FILTRATION RATE 44.5 (>60); POTASSIUM SERUM 4.2 MEQ/L (3.5-5.1)
--- NOTE | 2018-08-20 07:19 | IPNPDOC ---
Date Seen The patient was seen on 08/20/18. Progress Note Subjective: Patient was seen and examined this morning at bedside. s/p day 1 first metatarsal head resection and incision and drainage of an abscess. He had temperature last night after his surgery last night. He is currently on antibiotics and there was no other events overnight. Patient has no complaints today as well. Objective: Vitals: (see below) General: No acute distress, laying comfortably in bed. HEENT: Moist mucous membranes. Neck: No JVD or lymphadenopathy Cardiac: RRR, No murmurs Pulm: Clear to auscultation b/l. No wheezing, rhonchi Abd: NT/ND + BS Ext: No edema or cyanosis. Distal pulses intact. Erythema around the left foot status post resection of the first metatarsal head covered with a dressing no obvious purulent drainage noted.. Labs (see below) Images: X-ray foot 08/14/18 Impression: Changes consistent with osteomyelitis of the distal end of the first metatarsal. Assessment/Plan 1. Sepsis secondary to acute osteomyelitis infected diabetic foot ulcer and abess - wound culture: MSSA and group B strep -x-ray and Bone pathology: acute osteomyelitis. MRI foot report pending -Dr. Avendaño and Dr. Patel consulted - s/p day 1 first metatarsal head resection and incision and drainage of an abscess. -Possible closure versus further irrigation and drainage on Friday and Friday Dr. Patel is following. -Wound cultures from surgery pending - per ID c/w with Cefazolin q12H, PICC placement for Home IV antibiotics. - Probiotics twice a day 2.Chronic kidney disease -Creatinine at baseline (1.60) -will continue to avoid nephrotoxins (held home losartan) for now -monitor closely 3. Diabetes mellitus -continue Levemir AM 45 units and 10 units Levemir qhs -c/w sliding scale insulin. 4. Hypertension -stable -continue monitor -held home losartan for problem #2. 5. Hyperlipidemia c/w statin 6. History of HIV -c/w home Genvoya 7. Anemia of chronic disease and iron deficiency anemia -stable -c/w iron supplementation. -No need for transfusion at this time. 8. GERD -c/w PPI 9. PFS -set up home IV antibiotics 9. DVT prophy: Heparin subcutaneous Disposition: set home IV antibiotics, possible closure versus irrigation and drainage this weekend VS, I&O, 24H, [place] Vital Signs/I&O Vital Signs Date Time Temp Pulse Resp B/P (MAP) Pulse Ox O2 Delivery O2 Flow Rate FiO2 08/20/18 06:00 98.8 82 18 111/71 (84) 95 Room Air I&O- Last 24 Hours up to 6 AM 08/20/18 06:00 Intake Total 880 ml Output Total 800 ml Balance 80 ml Laboratory Data 24H LABS Laboratory Tests 2 08/19/18 09:28: Bedside Glucose (Misc Panel) 284H 08/19/18 10:50: Bedside Glucose (Misc Panel) 290H 08/19/18 11:36: Bedside Glucose (Misc Panel) 214H 08/19/18 14:15: Bedside Glucose (Misc Panel) 106H 08/19/18 15:12: Bedside Glucose (Misc Panel) 61L 08/19/18 17:00: Bedside Glucose (Misc Panel) 46L 08/19/18 18:20: Bedside Glucose (Misc Panel) 80 08/19/18 20:11: Bedside Glucose (Misc Panel) 196H 08/19/18 22:13: Urine Appearance HAZY, Urine Color YELLOW, Urine pH 5.0, Urine Specific [place] 1.020, Urine Protein 2+H, Urine Glucose (UA) 3+H, Urine Ketones NEGATIVE, Urine Urobilinogen 0.2, Urine Bilirubin NEGATIVE, Urine Leukocyte Esterase NEGATIVE, Urine Blood NEGATIVE, Urine Nitrite NEGATIVE, Urine WBC (Auto) 1, Urine RBC (Auto) 0, Urine Hyaline Casts (Auto) 0, Urine Bacteria (Auto) NEGATIVE, Urine Squamous Epithelial Cells 0, Urine Sperm (Auto) 08/20/18 05:50: Immature Granulocyte % (Auto) 0.9, White Blood Count 10.3H, Red Blood Count 2.56L, Hemoglobin 7.9L, Hematocrit 23.9L, Mean Corpuscular Volume 93.4, Mean Corpuscular Hemoglobin 30.9, Mean Corpuscular Hemoglobin Concent 33.1, Red Cell Distribution Width 11.9, Platelet Count 453H, Neutrophils (%) (Auto) 70.5H, Lymphocytes (%) (Auto) 17.2L, Monocytes (%) (Auto) 9.2H, Eosinophils (%) (Auto) 1.6, Basophils (%) (Auto) 0.6, Neutrophils # (Auto) 7.3, Lymphocytes # (Auto) 1 .8, Monocytes # (Auto) 1.0H, Eosinophils # (Auto) 0.2, Basophils # (Auto) 0.1, Nucleated Red Blood Cells % (auto) 0.0, Anion Gap 8, Glomerular Filtration Rate 44.5L, Blood Urea Nitrogen 31H, Creatinine 1.75H, Sodium Level 138, Potassium Level 4.2, Chloride Level 101, Carbon Dioxide Level 29, Calcium Level 8.5 CBC/BMP Laboratory Tests 08/20/18 05:50 Red Blood Count 2.56 L, Mean Corpuscular Volume 93.4, Mean Corpuscular Hemoglobin 30.9, Mean Corpuscular Hemoglobin Concent 33.1, Red Cell Distribution Width 11.9, Neutrophils (%) (Auto) 70.5 H, Lymphocytes (%) (Auto) 17.2 L, M onocytes (%) (Auto) 9.2 H, Eosinophils (%) (Auto) 1.6, Basophils (%) (Auto) 0.6, Neutrophils # (Auto) 7.3, Lymphocytes # (Auto) 1.8, Monocytes # (Auto) 1.0 H, Eosinophils # (Auto) 0.2, Basophils # (Auto) 0.1, Calcium Level 8.5 Microbiology Microbiology 08/19/18 Blood Culture, Received Pending 08/12/18 Blood Culture - Final, Complete NO GROWTH AFTER 5 DAYS 08/12/18 Blood Culture - Final, Complete NO GROWTH AFTER 5 DAYS 08/19/18 Urine Culture, Received Pending 08/19/18 Gram Stain - Final, Resulted 08/19/18 Wound Culture, Resulted Pending 08/19/18 Anaerobic Culture, Resulted Pending GME ATTESTATION GME ATTESTATION My faculty preceptor for this patient encounter was physically present during the encounter and was fully available. All aspects of the patient interview, examination, medical decision making process, and medical care plan development were reviewed and approved by the faculty preceptor. The faculty preceptor is aware and concurs with the plan as stated in the body of this note and will attest to such by his/her cosignature. NAE WELLINGTON DO Aug 20, 2018 07:18
[2018-08-20] MEDS ORDERED: LEVEMIR (INSULIN DETEMIR) 1 UNITS/0.01ML SC SCH (09:00)
[2018-08-20] MEDS: buPROPion **XL** TABLET 150MG (WELLBUTRIN XL) PO SCH (09:52)
[2018-08-20] MEDS: LACTOBACILLUS ACIDOPHILUS CAP (BACID) PO SCH ×2 (09:52→17:31)
[2018-08-20] MEDS: PRAVASTATIN 20 MG TAB PO SCH (09:52)
[2018-08-20] MEDS: MULTIVITAMINS/MINERALS THERAP 1 TAB PO SCH (09:53)
[2018-08-20] MEDS: FERROUS SULFATE 325MG TAB PO SCH (09:53)
[2018-08-20] MEDS: GENVOYA PO SCH (09:53)
[2018-08-20] MEDS: HumaLOG INSULIN (NovoLOG) PER UNIT SC SCH ×4 (09:54→21:00)
[2018-08-20 10:00] VITALS: BP 130/60
--- NOTE | 2018-08-20 12:32 | IPN ---
DATE: 08/20/2018 The patient seen and examined at bedside postoperatively. Denies overnight pain. He does state he had a fever at around 10:00 at about 101.9. Current temperature is 98.5. Vitals are stable. Labs are reviewed. White blood cell count is 10.3, hemoglobin 7.9. Cultures from the operating room (OR) are pending. Lower extremity exam with persisting erythema surrounding the left foot. Other wound sites appear without obvious purulent drainage. ASSESSMENT: 48-year-old male status post first metatarsal head resection and incision and drainage. PLAN: Will start packing and dressing changes twice daily. Continue antibiotics. Await culture results. Depending on nature, will plan closure versus further irrigation and drainage, likely on Friday or Friday.
[2018-08-20 14:00] VITALS: BP 110/70
[2018-08-20 18:00] VITALS: BP 138/68
[2018-08-20] MEDS: GABAPENTIN 300 MG CAP PO SCH (20:11)
[2018-08-20] MEDS: LEVEMIR (INSULIN DETEMIR) 1 UNITS/0.01ML SC SCH (21:50)
[2018-08-20 22:00] VITALS: BP 142/76
[2018-08-21 02:00] VITALS: BP 141/71
[2018-08-21] MEDS: SODIUM CHLORIDE 0.9% INJ 10 ML SYR IV SCH ×2 (05:28→17:29)
[2018-08-21 05:49] LABS: BASO # 0.1 10^3/uL (0.0-0.2); BASO % 0.6 % (0.0-1.0); EOS # 0.2 10^3/uL (0.0-0.50); EOS % 2.3 % (0.0-3.0); HEMOGLOBIN 7.8 g/dl (13.5-17.5); LYMPH # 1.9 10^3/uL (1.5-4.5); LYMPH % 21.3 % (24.0-44.0); MEAN CORPUSCULAR HEMOGLOBIN 29.9 pg (27.0-33.0); MEAN CORPUSCULAR HGB CONC 32.5 g/dl (32.0-36.5); MONO # 0.9 10^3/uL (0.0-0.8); MONO % 9.9 % (0.0-5.0); NEUTROPHILS # 5.7 10^3/uL (1.8-7.7); NEUTROPHILS % 64.6 % (36.0-66.0); PLATELET COUNT, AUTOMATED 479 10^3/uL (150-450); RED BLOOD COUNT 2.61 10^6/uL (4.30-6.10); WHITE BLOOD COUNT 8.8 10^3/uL (4.0-10.0)
[2018-08-21 06:00] VITALS: BP 177/81
[2018-08-21 06:03] LABS: CALCIUM LEVEL 8.5 MG/DL (8.5-10.1); CREATININE FOR GFR 1.86 MG/DL (0.70-1.30); GLOMERULAR FILTRATION RATE 41.5 (>60); POTASSIUM SERUM 4.5 MEQ/L (3.5-5.1)
[2018-08-21] MEDS: HEPARIN SOD (PORCINE) 5000 UNITS/ML VIAL SQ SCH ×3 (06:06→21:20)
[2018-08-21] MEDS ORDERED: NS 1,000 ML IV SCH (08:00)
[2018-08-21] MEDS ORDERED: LEVEMIR (INSULIN DETEMIR) 1 UNITS/0.01ML SC SCH (09:00)
[2018-08-21] MEDS: LACTOBACILLUS ACIDOPHILUS CAP (BACID) PO SCH ×2 (09:35→17:36)
[2018-08-21] MEDS: PRAVASTATIN 20 MG TAB PO SCH (09:35)
[2018-08-21] MEDS: FERROUS SULFATE 325MG TAB PO SCH ×2 (09:35→21:20)
[2018-08-21] MEDS: MULTIVITAMINS/MINERALS THERAP 1 TAB PO SCH (09:35)
[2018-08-21] MEDS: GENVOYA PO SCH (09:36)
[2018-08-21] MEDS: LEVEMIR (INSULIN DETEMIR) 1 UNITS/0.01ML SC SCH ×2 (09:37→21:21)
[2018-08-21] MEDS: HumaLOG INSULIN (NovoLOG) PER UNIT SC SCH ×4 (09:37→21:00)
[2018-08-21] MEDS: buPROPion **XL** TABLET 150MG (WELLBUTRIN XL) PO SCH (09:46)
--- NOTE | 2018-08-21 11:17 | IPNPDOC ---
Date Seen The patient was seen on 08/21/18. Progress Note Subjective: Patient was seen and examined this morning at bedside. s/p day 2 first metatarsal head resection and incision and drainage of an abscess. He had temperature last night again, Tmax 101.1. He is currently on antibiotics and there was no other events overnight. Will repeat blood cultures 2. Advised nursing to get a rectal temp if his temporal temp schedule 100.4. Hemoglobin this morning was 7.8. Steadily has decreased since he was admitted. Patient does have a history of iron deficiency anemia. He is on an iron transfusion in the past last time in March 2 units. We will obtain a type and screen and transfuse 1 unit today. He signed a blood transfusion consent this morning and is in his chart. The patient denies any chest pain shortness of breath nausea vomiting diarrhea. He has a good appetite. His sugars this level is in the 300s adjustments have been made on his Levemir. The patient has no complaints. Objective: Vitals: (see below) General: No acute distress, laying comfortably in bed. HEENT: Moist mucous membranes. Neck: No JVD or lymphadenopathy Cardiac: RRR, No murmurs Pulm: Clear to auscultation b/l. No wheezing, rhonchi Abd: NT/ND + BS Ext: No edema or cyanosis. Distal pulses intact. Erythema around the left foot status post resection of the first metatarsal head covered with an SADE dressing no obvious purulent drainage noted.. Labs (see below) Images: X-ray foot 08/14/18 Impression: Changes consistent with osteomyelitis of the distal end of the first metatarsal. Assessment/Plan 1. Sepsis secondary to acute osteomyelitis infected diabetic foot ulcer and abess - wound culture: MSSA and group B strep -x-ray and Bone pathology: acute osteomyelitis. MRI foot report pending -Dr. Avendaño and Dr. Patel consulted - s/p day 2 first metatarsal head resection and incision and drainage of an abscess. -Possible closure versus further irrigation and drainage on Friday and Friday Dr. Patel is following. -Wound cultures from surgery pending - per ID c/w with Cefazolin q12H, PICC placement for Home IV antibiotics. - Probiotics twice a day -repeat blood culture 2.Chronic kidney disease -Creatinine at baseline (1.60) -will continue to avoid nephrotoxins (held home losartan) for now -monitor closely -IV fluids 60cc/hr for 500mls 3. Diabetes mellitus -adjusted Levemir AM 50 units and 20 units Levemir qhs -c/w sliding scale insulin. 4. Hypertension -stable -continue monitor -held home losartan for problem #2. 5. Hyperlipidemia c/w statin 6. History of HIV -c/w home Genvoya 7. Anemia of chronic disease and iron deficiency anemia -c/w iron supplementation. -Blood transfusion consent obtained 1 unit of packed RBC transfused today. 8. GERD -c/w PPI 9. PFS -set up home IV antibiotics 9. DVT prophy: Heparin subcutaneous VS, I&O, 24H, Fishbone Vital Signs/I&O Vital Signs Date Time Temp Pulse Resp B/P (MAP) Pulse Ox O2 Delivery O2 Flow Rate FiO2 08/21/18 06:00 98.5 86 17 177/81 (113) 98 Room Air I&O- Last 24 Hours up to 6 AM 08/21/18 06:00 Intake Total 1750 ml Output Total 1790 ml Balance -40 ml Laboratory Data 24H LABS Laboratory Tests 2 08/20/18 11:54: Bedside Glucose (Misc Panel) 251H 08/20/18 16:26: Bedside Glucose (Misc Panel) 94 08/20/18 20:25: Bedside Glucose (Misc Panel) 143H 08/21/18 05:26: Immature Granulocyte % (Auto) 1.3, White Blood Count 8.8, Red Blood Count 2.61L, Hemoglobin 7.8L, Hematocrit 24.0L, Mean Corpuscular Volume 92.0, Mean Corpuscular Hemoglobin 29.9, Mean Corpuscular Hemoglobin Concent 32.5, Red Cell Distribution Width 11.8, Platelet Count 479H, Neutrophils (%) (Auto) 64.6, Lymphocytes (%) (Auto) 21.3L, Monocytes (%) (Auto) 9.9H, Eosinophils (%) (Auto) 2.3, Basophils (%) (Auto) 0.6, Neutrophils # (Auto) 5.7, Lymphocytes # (Auto) 1.9, Monocytes # (Auto) 0.9H, Eosinophils # (Auto) 0.2, Basophils # (Auto) 0.1, Nucleated Red Blood Cells % (auto) 0.0, Anion Gap 8, Glomerular Filtration Rate 41.5L, Blood Urea Nitrogen 26H, Creatinine 1.86H, Sodium Level 137, Potassium Level 4.5, Chloride Level 99, Carbon Dioxide Level 30, Calcium Level 8.5 CBC/BMP Laboratory Tests 08/21/18 05:26 Red Blood Count 2.61 L, Mean Corpuscular Volume 92.0, Mean Corpuscular Hemoglobin 29.9, Mean Corpuscular Hemoglobin Concent 32.5, Red Cell Distribution Width 11.8, Neutrophils (%) (Auto) 64.6, Lymphocytes (%) (Auto) 21.3 L, Monocytes (%) (Auto) 9.9 H, Eosinophils (%) (Auto) 2.3, Basophils (%) (Auto) 0.6, Neutrophils # (Auto) 5.7, Lymphocytes # (Auto) 1.9, Monocytes # (Auto) 0.9 H, Eosinophils # (Auto) 0.2, Basophils # (Auto) 0.1, Calcium Level 8.5 Microbiology Microbiology 08/19/18 Blood Culture - Preliminary, Resulted No growth after 24 hours . All specim... 08/12/18 Blood Culture - Final, Complete NO GROWTH AFTER 5 DAYS 08/12/18 Blood Culture - Final, Complete NO GROWTH AFTER 5 DAYS 08/19/18 Urine Culture, Received Pending 08/19/18 Gram Stain - Final, Resulted 08/19/18 Wound Culture, Resulted Pending 08/19/18 Anaerobic Culture, Resulted Pending GME ATTESTATION GME ATTESTATION My faculty preceptor for this patient encounter was physically present during the encounter and was fully available. All aspects of the patient interview, examination, medical decision making process, and medical care plan development were reviewed and approved by the faculty preceptor. The faculty preceptor is aware and concurs with the plan as stated in the body of this note and will attest to such by his/her cosignature. NAE WELLINGTON DO Aug 21, 2018 07:30
[2018-08-21 14:00] VITALS: BP 127/67
--- NOTE | 2018-08-21 14:28 | IPN ---
DATE: 08/21/2018 The patient seen and examined at bedside. He notes he had a fever overnight. He had chills as well. T-max was 101.1. Current temperature is 98.5. Blood pressure is elevated this morning at 177/81. Labs are reviewed. White blood cell count 8.8. Hemoglobin 7.8. Creatinine is 1.86. GFR if 41.5. Culture results from the operating room (OR) are still pending. Pathology is still pending. Lower Extremity Examination: Improved edema and erythema to the left foot. Wounds are inspected. There is no purulence noted with expression. ASSESSMENT: 48-year-old diabetic male with osteomyelitis and abscess of the foot. PLAN: Will bring to the operating room tomorrow for repeat irrigation and drainage and possible closure. He is to be nothing by mouth (n.p.o.) after midnight. Hold morning anticoagulation. Continue current antibiotics. Await culture results. [facility] HOSPITALAnatoly
--- NOTE | 2018-08-21 16:46 | IPN ---
DATE: 08/21/2018 Martina is getting blood transfusion today. He has had fevers for two nights in a row with some chills. He denies any nausea, vomiting, diarrhea, abdominal pain. LABORATORY DATA: White count is 8.8, hemoglobin 7.8, hematocrit 24, platelets 479, 64% neutrophils, 21% lymphocytes. Sodium 137, potassium 4.5, chloride 99, bicarbonate 30, BUN 26, creatinine 1.86 which has increased from 1.5, glucose 375, CRP is up to 21.8. MEDICATIONS: IV cefazolin 2 grams every12 hours. Left foot culture from 08/19/2018 is so far no growth. Chest x-ray done 08/19/2018 shows no acute pulmonary disease. IMPRESSION: 1. Cellulitis of left foot with acute osteomyelitis of first metatarsal, status post head resection and incision and drainage. The patient has an open wound at this time. Repeat intraoperative cultures are pending. The patient has recurrent fever which is somewhat concerning. It could be from recent debridement. The patient may need adjustment of his antibiotic based on operative cultures. 2. Anemia of chronic illness. The patient is receiving blood transfusion. 3. Insulin-dependent diabetes with improving sugars ranging between 94 and 371. PLAN: Continue IV cefazolin. The patient will eventually go home with IV antibiotics for 4-6 weeks. He has been told how to do the cefazolin but will decide on antibiotic choice depending on intraoperative culture.
[2018-08-21] MEDS: GABAPENTIN 300 MG CAP PO SCH (21:20)
[2018-08-21 22:00] VITALS: BP 164/79
[2018-08-21 22:30] VITALS: BP 148/82
[2018-08-22] VITALS (9 sets, daily range): BP systolic 135–187; BP diastolic 66–87
[2018-08-22] MEDS: SODIUM CHLORIDE 0.9% INJ 10 ML SYR IV SCH ×2 (05:13→18:14)
[2018-08-22 05:29] LABS: BASO % 0.5 % (0.0-1.0); EOS # 0.2 10^3/uL (0.0-0.50); EOS % 2.9 % (0.0-3.0); HEMATOCRIT 25.2 % (42.0-52.0); HEMOGLOBIN 8.2 g/dl (13.5-17.5); LYMPH # 1.9 10^3/uL (1.5-4.5); LYMPH % 25.8 % (24.0-44.0); MEAN CORPUSCULAR HEMOGLOBIN 29.1 pg (27.0-33.0); MEAN CORPUSCULAR HGB CONC 32.5 g/dl (32.0-36.5); MEAN CORPUSCULAR VOLUME 89.4 fl (80.0-96.0); MONO # 0.6 10^3/uL (0.0-0.8); MONO % 7.4 % (0.0-5.0); NEUTROPHILS # 4.7 10^3/uL (1.8-7.7); NEUTROPHILS % 62.1 % (36.0-66.0); PLATELET COUNT, AUTOMATED 484 10^3/uL (150-450); RED BLOOD COUNT 2.82 10^6/uL (4.30-6.10); WHITE BLOOD COUNT 7.5 10^3/uL (4.0-10.0)
[2018-08-22 05:58] LABS: C REACTIVE PROTEIN QUANTITATIV 15.3 MG/DL (0.00-0.30); CALCIUM LEVEL 8.6 MG/DL (8.5-10.1); CREATININE FOR GFR 1.38 MG/DL (0.70-1.30); GLOMERULAR FILTRATION RATE 58.5 (>60); POTASSIUM SERUM 4.1 MEQ/L (3.5-5.1)
[2018-08-22] MEDS: HumaLOG INSULIN (NovoLOG) PER UNIT SC SCH ×4 (07:30→21:21)
[2018-08-22] MEDS ORDERED: BUPIVACAINE HCL 0.5% 10 ML VIAL As Ordered ONE (07:40)
[2018-08-22] MEDS ORDERED: LIDOCAINE 1% MDV 20ML VIAL As Ordered ONE (07:40)
--- NOTE | 2018-08-22 08:13 | IPNPDOC ---
Date Seen The patient was seen on 08/22/18. Progress Note Subjective: Patient was seen and examined this morning at bedside after his procedure this morning. He had a repeat I&D and closure of the wound. His wound cultures came back this morning positive for MRSA and Enterococcus Faecalis. Antibiotics were changed to IV vancomycin. The patient was very tired this morning was not very communicative. He did state that he has no complaints this morning just like to sleep. No events were reported by nursing. Objective: Vitals: (see below) General: No acute distress, laying comfortably in bed. HEENT: Moist mucous membranes. Neck: No JVD or lymphadenopathy Cardiac: RRR, No murmurs Pulm: Clear to auscultation b/l. No wheezing, rhonchi Abd: NT/ND + BS Ext: No edema or cyanosis. Distal pulses intact. Erythema around the left foot status post resection of the first metatarsal head covered with an SADE dressing no obvious purulent drainage noted there is a drain attached outside as well no notable drainage Labs (see below) Images: X-ray foot 08/14/18 Impression: Changes consistent with osteomyelitis of the distal end of the first metatarsal. Assessment/Plan 1. Sepsis secondary to acute osteomyelitis infected diabetic foot ulcer and abes s - wound culture: MSSA and group B strep -x-ray and Bone pathology: acute osteomyelitis. MRI foot report pending -Dr. Avendaño and Dr. Patel consulted -repeat I&D and closure of the wound -Wound cultures: Enterococcus Faecalis plus MRSA -Changed Antibiotics to Vancomycin -PICC placement for Home IV antibiotics for 4-6 weeks. -Probiotics twice a day 2.Chronic kidney disease -Creatinine at baseline (1.60) -will continue to avoid nephrotoxins (held home losartan) for now -monitor closely 3. Diabetes mellitus -adjusted Levemir AM 50 units and 20 units Levemir qhs -OR today Levemir a.m. dose 30 units -c/w sliding scale insulin. 4. Hypertension -stable -continue monitor -held home losartan for problem #2. 5. Hyperlipidemia c/w statin 6. History of HIV -c/w home Genvoya 7. Anemia of chronic disease and iron deficiency anemia -c/w iron supplementation. - 1 unit of packed RBC transfused. 8. GERD -c/w PPI 9. PFS -home IV antibiotics 9. DVT prophy: Heparin subcutaneous VS, I&O, 24H, Fishbone Vital Signs/I&O Vital Signs Date Time Temp Pulse Resp B/P (MAP) Pulse Ox O2 Delivery O2 Flow Rate FiO2 08/21/18 22:30 148/82 (104) 08/21/18 22:00 99.3 90 18 95 Room Air I&O- Last 24 Hours up to 6 AM 08/22/18 05:59 Intake Total 1568 ml Output Total 1700 ml Balance -132 ml Laboratory Data 24H LABS Laboratory Tests 2 08/21/18 08:23: C-Reactive Protein, Quantitative 21.80H 08/21/18 11:16: Bedside Glucose (Misc Panel) 371H 08/21/18 17:21: Bedside Glucose (Misc Panel) 65L 08/21/18 18:32: Bedside Glucose (Misc Panel) 241H 08/21/18 20:22: Bedside Glucose (Misc Panel) 218H 08/22/18 05:18: Immature Granulocyte % (Auto) 1.3, White Blood Count 7.5, Red Blood Count 2.82L, Hemoglobin 8.2L, Hematocrit 25.2L, Mean Corpuscular Volume 89.4, Mean Cor puscular Hemoglobin 29.1, Mean Corpuscular Hemoglobin Concent 32.5, Red Cell Distribution Width 13.0, Platelet Count 484H, Neutrophils (%) (Auto) 62.1, Lymphocytes (%) (Auto) 25.8, Monocytes (%) (Auto) 7.4H, Eosinophils (%) (Auto) 2.9, Basophils (%) (Auto) 0.5, Neutrophils # (Auto) 4.7, Lymphocytes # (Auto) 1.9, Monocytes # (Auto) 0.6, Eosinophils # (Auto) 0.2, Basophils # (Auto) 0.0, Nucleated Red Blood Cells % (auto) 0.0, Anion Gap 8, Glomerular Filtration Rate 58.5L, Blood Urea Nitrogen 22H, Creatinine 1.38H, Sodium Level 141, Potassium Level 4.1, Chloride Level 105, Carbon Dioxide Level 28, Calcium Level 8.6, C- Reactive Protein, Quantitative 15.30H CBC/BMP Laboratory Tests 08/22/18 05:18 Red Blood Count 2.82 L, Mean Corpuscular Volume 89.4, Mean Corpuscular Hemogl obin 29.1, Mean Corpuscular Hemoglobin Concent 32.5, Red Cell Distribution Width 13.0, Neutrophils (%) (Auto) 62.1, Lymphocytes (%) (Auto) 25.8, Monocytes (%) (Auto) 7.4 H, Eosinophils (%) (Auto) 2.9, Basophils (%) (Auto) 0.5, Neutrophils # (Auto) 4.7, Lymphocytes # (Auto) 1.9, Monocytes # (Auto) 0.6, Eosinophils # (Auto) 0.2, Basophils # (Auto) 0.0, Calcium Level 8.6 Microbiology Microbiology 08/21/18 Blood Culture, Received Pending 08/21/18 Blood Culture, Received Pending 08/19/18 Blood Culture - Preliminary, Resulted No Growth after 48 hours. All Specime... 08/12/18 Blood Culture - Final, Complete NO GROWTH AFTER 5 DAYS 08/12/18 Blood Culture - Final, Complete NO GROWTH AFTER 5 DAYS 08/21/18 MRSA Screen, Received Pending 08/19/18 Urine Culture - Final, Complete 08/19/18 Gram Stain - Final, Complete 08/19/18 Wound Culture - Final, Complete Enterococcus Faecalis Staph.aureus Methicillin Resis 08/19/18 Anaerobic Culture - Final, Complete GME ATTESTATION GME ATTESTATION My faculty preceptor for this patient encounter was physically present during the encounter and was fully available. All aspects of the patient interview, examination, medical decision making process, and medical care plan development were reviewed and approved by the faculty preceptor. The faculty preceptor is aware and concurs with the plan as stated in the body of this note and will attest to such by his/her cosignature. NAE WELLINGTON DO Aug 22, 2018 08:13
[2018-08-22] MEDS ORDERED: MIDAZOLAM INJ 2 MG/2 ML VIAL (J2250) As Ordered ONE (08:38)
[2018-08-22] MEDS ORDERED: ONDANSETRON 4MG/2ML VIAL (J2405) As Ordered ONE (08:38)
[2018-08-22] MEDS ORDERED: fentaNYL 100 MCG/2 ML INJECTION (J3010) As Ordered ONE (08:38)
[2018-08-22] MEDS ORDERED: PROPOFOL 200 MG/20 ML VIAL As Ordered ONE (08:38)
[2018-08-22] MEDS ORDERED: dexameTHASONE 4 MG/ML 1ML VIAL (J1100) As Ordered ONE (08:38)
[2018-08-22] MEDS ORDERED: DEXTROSE 50% 50 ML SYRINGE IV STA (09:50)
[2018-08-22] MEDS ORDERED: DEXTROSE 50% 50 ML SYRINGE ONE (09:59)
[2018-08-22] MEDS ORDERED: PERCOCET 5MG/325MG TAB PO PRN (10:00)
[2018-08-22] MEDS ORDERED: ONDANSETRON 4MG/2ML VIAL (J2405) IV PRN (10:00)
[2018-08-22] MEDS ORDERED: DOXYCYCLINE HYCLATE 100 MG in D5W MINI-BAG PLUS 100 ML IV SCH (10:00)
[2018-08-22] MEDS ORDERED: LR 1,000 ML IV SCH (10:00)
[2018-08-22] MEDS ORDERED: VANCOMYCIN HCL 1,000 MG, VIAL MATE ADAPTER 1 EACH in D5W 250 ML IV ONE (11:00)
[2018-08-22] MEDS: buPROPion **XL** TABLET 150MG (WELLBUTRIN XL) PO SCH (11:15)
[2018-08-22] MEDS: FERROUS SULFATE 325MG TAB PO SCH ×2 (11:15→21:20)
[2018-08-22] MEDS: PRAVASTATIN 20 MG TAB PO SCH (11:15)
[2018-08-22] MEDS: LACTOBACILLUS ACIDOPHILUS CAP (BACID) PO SCH ×2 (11:15→18:14)
[2018-08-22] MEDS: MULTIVITAMINS/MINERALS THERAP 1 TAB PO SCH (11:15)
[2018-08-22] MEDS: LEVEMIR (INSULIN DETEMIR) 1 UNITS/0.01ML SC SCH ×2 (11:16→21:22)
[2018-08-22] MEDS: GENVOYA PO SCH (11:17)
--- NOTE | 2018-08-22 13:34 | RO ---
DATE OF PROCEDURE: 08/22/2018 PREOPERATIVE DIAGNOSIS: Foot open wound and infection. POSTOPERATIVE DIAGNOSIS: Foot open wound and infection. PROCEDURE: Left foot incision and drainage and wound closure. SURGEON: Marcio Patel DPM PAPER CORE MACHINE OPERATOR: None. ANESTHESIA: Monitored anesthesia care (MAC) and preop injection of 10 mL of 1:1 mixture of 1% lidocaine plain and 0.50% Marcaine plain. ESTIMATED BLOOD LOSS: Minimal. MATERIALS: #3-0 nylon. INJECTABLES: None. DRAINS: TLS left foot. COMPLICATIONS: None. CONDITION: Stable. Martina Snow is a 49-year-old male who has been admitted for a left foot infection. He had incision and drainage earlier this week due to abscess formation. He has had dressing changes with some improvement in the quality of the wound. A decision was made to bring him to the operating room for a repeat incision and drainage, possible closure. Patient site and side were identified and marked in preop holding area. Consent was reviewed and obtained. All risks, complications and alternatives to the procedure were explained to the patient in detail and all questions were answered. DESCRIPTION OF PROCEDURE: The patient was brought to the operating room and placed on the operating room table in the supine position. Monitored anesthesia care was delivered by the anesthesia team. Preoperative injection of 10 mL of 1:1 mixture of 1% lidocaine plain and 0.50% Marcaine plain was injected in the left foot. The left foot was prepped and draped in the normal sterile fashion. A tourniquet was applied to the left ankle but was not inflated during the procedure. The previous dorsal incisions were opened and inspected. No significant purulence was identified. No necrotic was noted. The site was irrigated with approximately 500 mL of saline solution. Following this, a TLS drain was inserted and the incisions were repaired with #3-0 nylon. The plantar wound was packed with saline soaked gauze. Sterile dressings were applied. The patient was brought to the postanesthesia care unit (PACU) with vital signs stable and neurovascular status intact. He will be readmitted to his floor. Antibiotics were changed based on previous intraoperative cultures which showed Methicillin-resistant Staphylococcus aureus (MRSA) and Enterococcus. Will defer to Dr. Avendaño for final antibiotic selection. Will follow.
--- NOTE | 2018-08-22 15:15 | PHACANCOPD ---
PHARMACY VANCOMYCIN DOSING Pt Demographics Demographics Patient Age:48 , Weight:77.600 , Gender: male Adjusted Body Weight Date: 08/12/18, Adjusted Body Weight: [NA] Kg Events Past 24 Hours Events Past 24 Hours: YES: Change in CrCl, Fever; NO: Dialysis, Diuretic Therapy, Elevation in WBC, Pending Diagnostics, Pending Procedures, Other Vancomycin Vancomycin indication: MRSA + wound culture for osteomyelitis Vancomycin Target Ranges: 10-20 mcg/ml Vancomycin Load Y/N: Yes Load Dose Date Time Vancomycin Load Dose: 1000MG Date: 08/22/18 Time: ~11:30 Vancomycin Dose Date: 08/22/18. Current Vancomycin Dose: [1g IV q18h @18] Intermittent Dosing?: No Labs Labs Item Value Date Time White Blood Count 10.3 10^3/uL H 08/20/18 0550 White Blood Count 8.8 10^3/uL 08/21/18 0526 White Blood Count 7.5 10^3/uL 08/22/18 0518 Creatinine 1.75 MG/DL H 08/20/18 0550 Creatinine 1.86 MG/DL H 08/21/18 0526 Creatinine 1.38 MG/DL H 08/22/18 0518 Vital Signs Label Value Date Time Patient Temperature 99.3 degrees F 08/21/18 2200 Temperature Source Temporal 08/21/18 2200 Patient Temperature 101.1 degrees F 08/20/18 2200 Temperature Source Temporal 08/20/18 2200 Micro Microbiology 08/21/18 Blood Culture - Preliminary, Resulted No growth after 24 hours . All specim... 08/21/18 Blood Culture - Preliminary, Resulted No growth after 24 hours . All specim... 08/19/18 Blood Culture - Preliminary, Resulted No Growth after 48 hours. All Specime... 08/12/18 Blood Culture - Final, Complete NO GROWTH AFTER 5 DAYS 08/12/18 Blood Culture - Final, Complete NO GROWTH AFTER 5 DAYS 08/21/18 MRSA Screen - Final, Complete 08/19/18 Urine Culture - Final, Complete 08/19/18 Gram Stain - Final, Complete 08/19/18 Wound Culture - Final, Complete Enterococcus Faecalis Staph.aureus Methicillin Resis 08/19/18 Anaerobic Culture - Final, Complete Creatinine Clearance Date:08/12/18. Creatinine Clearance: [61 ml/min]. Assessment and Plan Maintaining Current Dose?: Yes Reason for dose change: No Dose Change Pharmacist Note Pharmacist Note Date: 08/22/18. Pharmacist note: pt has been restarted on vancomycin. He was previously on Vancomycin (), Zosyn (08/12-) followed by Ancef 2g q12h from 08/17-. Repeat left foot wound cultures on 08/19 grew MRSA (ODALYS = 0.5) and Enterococcus faecalis (ODALYS = 1). Prior left foot wound culture from 08/12 grew Strep grp G and MSSA. Pt went to the OR today with Dr. Patel for left foot wound I&D and wound closure. I have started the pt on vancomycin 1g at ~11:30, to be f ollowed with 1g IV q18h to start ~6 hours later. SCr has improved since admission and he is at his baseline now. I will follow up tomorrow and make adjustments as necessary. Damien Zamora Pharm.D. Aug 22, 2018 15:15
[2018-08-22] MEDS: VANCOMYCIN HCL 1,000 MG, VIAL MATE ADAPTER 1 EACH in D5W 250 ML IV SCH (18:15)
[2018-08-22] MEDS: GABAPENTIN 300 MG CAP PO SCH (21:21)
[2018-08-23 02:00] VITALS: BP 148/85
[2018-08-23] MEDS: SODIUM CHLORIDE 0.9% INJ 10 ML SYR IV SCH ×2 (05:43→18:33)
[2018-08-23 06:00] VITALS: BP 148/85
[2018-08-23 06:41] LABS: BLOOD UREA NITROGEN 28 MG/DL (7-18); CALCIUM LEVEL 8.6 MG/DL (8.5-10.1); CARBON DIOXIDE LEVEL 27 MEQ/L (21-32); CHLORIDE LEVEL 102 MEQ/L (98-107); CREATININE FOR GFR 1.31 MG/DL (0.70-1.30); GLOMERULAR FILTRATION RATE > 60.0 (>60); GLUCOSE, FASTING 229 MG/DL (70-100); POTASSIUM SERUM 4.8 MEQ/L (3.5-5.1); SODIUM LEVEL 137 MEQ/L (136-145)
[2018-08-23] MEDS: HEPARIN SOD (PORCINE) 5000 UNITS/ML VIAL SQ SCH ×3 (06:45→21:37)
[2018-08-23] MEDS: buPROPion **XL** TABLET 150MG (WELLBUTRIN XL) PO SCH (09:06)
[2018-08-23] MEDS: PRAVASTATIN 20 MG TAB PO SCH (09:06)
[2018-08-23] MEDS: FERROUS SULFATE 325MG TAB PO SCH ×2 (09:07→21:36)
[2018-08-23] MEDS: LEVEMIR (INSULIN DETEMIR) 1 UNITS/0.01ML SC SCH ×2 (09:07→21:38)
[2018-08-23] MEDS: MULTIVITAMINS/MINERALS THERAP 1 TAB PO SCH (09:07)
[2018-08-23] MEDS: LACTOBACILLUS ACIDOPHILUS CAP (BACID) PO SCH ×2 (09:07→18:31)
[2018-08-23] MEDS: HumaLOG INSULIN (NovoLOG) PER UNIT SC SCH ×4 (09:07→21:37)
[2018-08-23] MEDS: GENVOYA PO SCH (09:08)
[2018-08-23 10:00] VITALS: BP 133/69
[2018-08-23] MEDS: VANCOMYCIN HCL 1,000 MG, VIAL MATE ADAPTER 1 EACH in D5W 250 ML IV SCH (12:23)
--- NOTE | 2018-08-23 13:22 | IPNPDOC ---
Text Note Date of Service The patient was seen on 08/23/18. NOTE Subjective: Feels well. Denies any changes overnight. Objective: Vitals: (see below) General: No acute distress, laying comfortably in bed. HEENT: Moist mucous membranes. Neck: No JVD or lymphadenopathy Cardiac: RRR, No murmurs Pulm: Clear to auscultation b/l. No wheezing, rhonchi Abd: NT/ND + BS Ext: No edema or cyanosis. Distal pulses intact. Left foot with Jet wrap. Ba ndage clean and dry. No drainage. Labs (see below) Images: X-ray foot 08/14/18 Impression: Changes consistent with osteomyelitis of the distal end of the first metatarsal. Assessment/Plan 1. Sepsis secondary to acute osteomyelitis infected diabetic foot ulcer/- patient with MSSA and group B strep on wound culture. Patient also has bone pathology with acute osteomyelitis. Leukocytosis improving. Afebrile. Wound care. Discussed with Dr. Magallon, who will ask Dr. Patel to see patient for ?removal of metatarsal head vs toe. Dr. Avendaño consulted. Wound culture positive for MRSA, and antibiotics changed to vancomycin. 2. Chronic kidney disease. Creatinine improving. Avoid nephrotoxins. 3. Diabetes mellitus continue Levemir and sliding scale insulin. Had an episode of hypoglycemia this am. PM levemir d/c. 4. Hypertension stable. 5. Hyperlipidemia on statin 6. History of HIV continue home meds 7. Anemia of chronic disease and iron deficiency anemia -stable. Continue iron supplementation. No need for transfusion at this time. 8. GERD on PPI DVT prophy: Heparin subcutaneous Overall prognosis guarded. VS,Fishbone, I+O VS, Fishbone, I+O Laboratory Tests 08/23/18 05:40 Calcium Level 8.6 Vital Signs Date Time Temp Pulse Resp B/P (MAP) Pulse Ox O2 Delivery O2 Flow Rate FiO2 08/23/18 10:00 98.2 82 13 133/69 (90) 96 Room Air 08/22/18 15:30 2.0 I&O- Last 24 Hours up to 6 AM 08/23/18 06:00 Intake Total 480 ml Output Total 1940 ml Balance -1460 ml DOROTHY SAM MD Aug 23, 2018 13:22
[2018-08-23 14:00] VITALS: BP 136/74
[2018-08-23 18:00] VITALS: BP 137/77
[2018-08-23] MEDS: GABAPENTIN 300 MG CAP PO SCH (21:37)
[2018-08-23 22:00] VITALS: BP 161/89
[2018-08-24 02:00] VITALS: BP 150/86
[2018-08-24] MEDS: SODIUM CHLORIDE 0.9% INJ 10 ML SYR IV SCH ×2 (05:15→18:35)
[2018-08-24] MEDS: HEPARIN SOD (PORCINE) 5000 UNITS/ML VIAL SQ SCH ×3 (05:15→21:50)
[2018-08-24 06:00] VITALS: BP 135/77
[2018-08-24] MEDS: VANCOMYCIN HCL 1,000 MG, VIAL MATE ADAPTER 1 EACH in D5W 250 ML IV SCH ×3 (06:00→18:36)
--- NOTE | 2018-08-24 06:20 | PHACANCOPD ---
PHARMACY VANCOMYCIN DOSING Pt Demographics Demographics Patient Age:48 , Weight:77.600 , Gender: male Adjusted Body Weight Date: 08/12/18, Adjusted Body Weight: [NA] Kg Events Past 24 Hours Events Past 24 Hours: NO: Dialysis, Diuretic Therapy, Change in CrCl, Fever, Elevation in WBC, Pending Diagnostics, Pending Procedures, Other Vancomycin Vancomycin indication: MRSA + wound culture for osteomyelitis Vancomycin Target Ranges: 10-20 mcg/ml Vancomycin Load Y/N: Yes Load Dose Date Time Vancomycin Load Dose: 1000MG Date: 08/22/18 Time: ~11:30 Vancomycin Dose Date: 08/22/18. Current Vancomycin Dose: [1g IV q18h @18] Intermittent Dosing?: No Labs Labs Vital Signs Label Value Date Time Patient Temperature 98.1 degrees F 08/24/18 0200 Temperature Source Temporal 08/24/18 0200 Patient Temperature 97.7 degrees F 08/23/18 1800 Temperature Source Temporal 08/23/18 1800 Patient Temperature 98.4 degrees F 08/23/18 2200 Temperature Source Temporal 08/23/18 2200 Item Value Date Time White Blood Count 7.5 10^3/uL 08/22/18 0518 White Blood Count 8.8 10^3/uL 08/21/18 0526 White Blood Count 10.3 10^3/uL H 08/20/18 0550 Creatinine 1.31 MG/DL H 08/23/18 0540 Creatinine 1.38 MG/DL H 08/22/18 0518 Creatinine 1.86 MG/DL H 08/21/18 0526 Vancomycin Level Trough 11.5 UG/ML 08/24/18 0514 Vancomycin Level Trough 7.9 UG/ML L 08/14/18 1721 Micro Microbiology 08/21/18 Blood Culture - Preliminary, Resulted No Growth after 48 hours. All Specime... 08/21/18 Blood Culture - Preliminary, Resulted No Growth after 48 hours. All Specime... 08/19/18 Blood Culture - Preliminary, Resulted No Growth after 72 hours. All specime... 08/21/18 MRSA Screen - Final, Complete 08/19/18 Urine Culture - Final, Complete 08/19/18 Gram Stain - Final, Complete 08/19/18 Wound Culture - Final, Complete Enterococcus Faecalis Staph.aureus Methicillin Resis 08/19/18 Anaerobic Culture - Final, Complete Creatinine Clearance Date:08/12/18. Creatinine Clearance: [61 ml/min]. Assessment and Plan Maintaining Current Dose?: No Reason for dose change: Trough too low Pharmacist Note Pharmacist Note 08/24/18: Trough today resulted @11.5mcg/ml. I have increased the dose to Vanco 1G IV Q12H. We will continue to monitor and adjust dose as needed. Date: 08/22/18. Pharmacist note: pt has been restarted on vancomycin. He was previously on Vancomycin (), Zosyn () followed by Ancef 2g q12h from 08/17-. Repeat left foot wound cultures on 08/19 grew MRSA (ODALYS = 0.5) and Enterococcus faecalis (ODALYS = 1). Prior left foot wound culture from 08/12 grew Strep grp G and MSSA. Pt went to the OR today with Dr. Patel for left foot wound I&D and wound closure. I have started the pt on vancomycin 1g at ~11:30, to be followed with 1g IV q18h to start ~6 hours later. SCr has improved since admission and he is at his baseline now. I will follow up tomorrow and make adjustments as necessary. THOR SINGH PHARMACY Aug 24, 2018 06:20
[2018-08-24] MEDS: HumaLOG INSULIN (NovoLOG) PER UNIT SC SCH ×4 (07:30→21:00)
[2018-08-24] MEDS: FERROUS SULFATE 325MG TAB PO SCH ×2 (09:05→21:50)
[2018-08-24] MEDS: LACTOBACILLUS ACIDOPHILUS CAP (BACID) PO SCH ×2 (09:05→18:35)
[2018-08-24] MEDS: buPROPion **XL** TABLET 150MG (WELLBUTRIN XL) PO SCH (09:05)
[2018-08-24] MEDS: PRAVASTATIN 20 MG TAB PO SCH (09:05)
[2018-08-24] MEDS: GENVOYA PO SCH (09:05)
[2018-08-24] MEDS: MULTIVITAMINS/MINERALS THERAP 1 TAB PO SCH (09:05)
[2018-08-24] MEDS: LEVEMIR (INSULIN DETEMIR) 1 UNITS/0.01ML SC SCH ×2 (09:07→21:51)
[2018-08-24 10:00] VITALS: BP 140/82
--- NOTE | 2018-08-24 11:17 | IPNPDOC ---
Date Seen The patient was seen on 08/24/18. Progress Note Subjective: Patient was seen and examined this morning at bedside. Currently waiting for Gerson to come teach the patient about vancomycin so he can do it at home and teaching about wound dressing changes outpatient prior to discharge. He's been afebrile and asymptomatic overnight. No overnight events were reported. He denies any chest pain shortness of breath trouble breathing any worsening sugars. He is tolerating his meals with no problems. And he has no complaints this morning. Objective: Vitals: (see below) General: No acute distress, laying comfortably in bed. HEENT: Moist mucous membranes. Neck: No JVD or lymphadenopathy Cardiac: RRR, No murmurs Pulm: Clear to auscultation b/l. No wheezing, rhonchi Abd: NT/ND + BS Ext: No edema or cyanosis. Distal pulses intact. Erythema around the left foot status post resection of the first metatarsal head covered with an SADE dressing no obvious purulent drainage noted there is a drain attached outside as well no notable drainage Labs (see below) Images: X-ray foot 08/14/18 Impression: Changes consistent with osteomyelitis of the distal end of the first metatarsal. MRI of the foot 08/17/2018 There are changes consistent with osteomyelitis involving the volar and medial aspect of the distal end of the first metatarsal with overlying soft tissue deficit. No other evidence of osteomyelitis is seen. There is a fluid collection distal to the amputated second metatarsal of uncertain etiology. Abscess cannot be excluded, but the bone adjacent to this shows normal signal intensity. There is a small quantity of joint fluid dorsally over the midfoot as well more laterally. Assessment/Plan 1. Sepsis secondary to acute osteomyelitis infected diabetic foot ulcer and abscess - wound culture: MSSA and group B strep -x-ray and Bone pathology: acute osteomyelitis. MRI foot consistent with osteomyelitis and possible abscess -Dr. Avendaño and Dr. Patel consulted -repeat I&D and closure of the wound -Wound cultures: Enterococcus Faecalis plus MRSA -Continue with vancomycin IV for 4-6 weeks. -Probiotics twice a day 2.Chronic kidney disease -Creatinine at baseline (1.60) 3. Diabetes mellitus -adjusted Levemir AM 50 units and 20 units Levemir qhs -OR today Levemir a.m. dose 30 units -c/w sliding scale insulin. 4. Hypertension -Restarted home losartan 5. Hyperlipidemia c/w statin 6. History of HIV -c/w home Genvoya 7. Anemia of chronic disease and iron deficiency anemia -c/w iron supplementation. -1 PRBC since admission 8. GERD -c/w PPI 9. DVT prophy: Heparin subcutaneous Disposition: Awaiting outpatient IV antibiotics teaching and wound dressing changes. VS, I&O, 24H, Fishbone Vital Signs/I&O Vital Signs Date Time Temp Pulse Resp B/P (MAP) Pulse Ox O2 Delivery O2 Flow Rate FiO2 08/24/18 10:00 97.3 86 17 140/82 (101) 99 Room Air 08/22/18 15:30 2.0 I&O- Last 24 Hours up to 6 AM 08/24/18 06:00 Intake Total 1080 ml Output Total 1600 ml Balance -520 ml Laboratory Data 24H LABS Laboratory Tests 2 08/23/18 11:54: Bedside Glucose (Misc Panel) 208H 08/23/18 17:16: Bedside Glucose (Misc Panel) 220H 08/23/18 21:15: Bedside Glucose (Misc Panel) 370H 08/24/18 05:14: C-Reactive Protein, Quantitative 5.74H, Vancomycin Level Trough 11.5 08/24/18 07:01: Bedside Glucose (Misc Panel) 108H Microbiology Microbiology 08/21/18 Blood Culture - Preliminary, Resulted No Growth after 72 hours. All specime... 08/21/18 Blood Culture - Preliminary, Resulted No Growth after 72 hours. All specime... 08/19/18 Blood Culture - Preliminary, Resulted No Growth after 72 hours. All specime... 08/21/18 MRSA Screen - Final, Complete 08/19/18 Urine Culture - Final, Complete 08/19/18 Gram Stain - Final, Complete 08/19/18 Wound Culture - Final, Complete Enterococcus Faecalis Staph.aureus Methicillin Resis 08/19/18 Anaerobic Culture - Final, Complete GME ATTESTATION GME ATTESTATION My faculty preceptor for this patient encounter was physically present during the encounter and was fully available. All aspects of the patient interview, examination, medical decision making process, and medical care plan development were reviewed and approved by the faculty preceptor. The faculty preceptor is aware and concurs with the plan as stated in the body of this note and will attest to such by his/her cosignature. NAE WLELINGTON DO Aug 24, 2018 11:17
[2018-08-24] MEDS: LOSARTAN 50 MG TAB PO SCH (12:00)
--- NOTE | 2018-08-24 12:01 | IPN ---
DATE OF SERVICE: 08/24/2018 The patient was seen and examined at bedside. Denies overnight complaints. The patient has remained afebrile. Laboratories were reviewed. White cell count is 7.5. Hemoglobin is 8.2. C-reactive protein is trending down to 5.74. Lower extremity examination: Improvement in erythema and edema is noted. Plantar wound base is granular. Minimal drainage in drain tube. ASSESSMENT: 48-year-old male with osteomyelitis and abscess of the left foot. PLAN: Drain is removed. Dressings applied. Dressing is to be saline soaked gauze to plantar wound, Telfa to dorsal incision, cover with dry gauze dressing, change daily. We will see him in my office in 1 week.
[2018-08-24 14:00] VITALS: BP 139/76
[2018-08-24 18:00] VITALS: BP 138/72
--- NOTE | 2018-08-24 20:29 | IPN ---
DATE: 08/24/2018 Martina seems to be doing well today. He has had no fever or chills since his switch back to IV vancomycin. He has been taught on his IV infusion by Rohan Alvarado RN. He has no nausea, vomiting or diarrhea. No abdominal pain. Dressing was not done, it has been done by Dr. Patel this afternoon. Per his note, there is improvement in erythema and edema. The plantar wound is granular. The drainage tubes were removed. He had closure of the wound done on Friday. LABORATORY DATA: White count 7.5, hemoglobin 8.2, hematocrit 25.2, platelets 484, 62% neutrophils, 25% lymphocytes, 7% monocytes. Sodium 137, potassium 4.8, chloride 102, bicarbonate 27, BUN 28, creatinine 1.38, glucose 229, calcium 8.6, C-reactive protein 5.74, done from . Wound culture of the left foot from the bone intraoperatively had methicillin resistant Staphylococcus aureus (MRSA) and Enterococcus faecalis. Vancomycin trough today was 11.5. IMPRESSION: 1. Acute osteomyelitis of the first metatarsal, status post resection with culture positive for MRSA, on IV vancomycin for the next 6 weeks, with a start day of treatment being August 22. The patient will be treated for 4-6 weeks. 2. History of chronic kidney disease. We will monitor creatinine and vancomycin trough. The patient's vancomycin dose was changed today to 1 gram every 12 hours. 3. HIV, well controlled. PLAN: The patient will be discharged home tomorrow. He will have weekly labs on with complete blood count (CBC), basic metabolic panel (BMP), C-reactive protein, ESR. He will follow up in my office in 2 weeks.
[2018-08-24] MEDS: GABAPENTIN 300 MG CAP PO SCH (21:50)
[2018-08-24 22:00] VITALS: BP 128/67
[2018-08-25 02:00] VITALS: BP 135/75
[2018-08-25 06:00] VITALS: BP 119/69
[2018-08-25] MEDS: SODIUM CHLORIDE 0.9% INJ 10 ML SYR IV SCH (06:32)
[2018-08-25] MEDS: VANCOMYCIN HCL 1,000 MG, VIAL MATE ADAPTER 1 EACH in D5W 250 ML IV SCH (06:32)
[2018-08-25] MEDS: HEPARIN SOD (PORCINE) 5000 UNITS/ML VIAL SQ SCH (06:32)
[2018-08-25] MEDS: HumaLOG INSULIN (NovoLOG) PER UNIT SC SCH (07:10)
[2018-08-25] MEDS: GENVOYA PO SCH (07:54)
[2018-08-25 07:55] VITALS: BP 119/69
[2018-08-25] MEDS: MULTIVITAMINS/MINERALS THERAP 1 TAB PO SCH (07:55)
[2018-08-25] MEDS: LOSARTAN 50 MG TAB PO SCH (07:55)
[2018-08-25] MEDS: FERROUS SULFATE 325MG TAB PO SCH (07:55)
[2018-08-25] MEDS: PRAVASTATIN 20 MG TAB PO SCH (07:55)
[2018-08-25] MEDS: LACTOBACILLUS ACIDOPHILUS CAP (BACID) PO SCH (07:55)
[2018-08-25] MEDS: buPROPion **XL** TABLET 150MG (WELLBUTRIN XL) PO SCH (07:55)
[2018-08-25] MEDS: LEVEMIR (INSULIN DETEMIR) 1 UNITS/0.01ML SC SCH (07:56)
[2018-08-25] MEDS ORDERED: RISATAB3 PO (11:25)
--- NOTE | 2018-08-25 13:25 | DS.PDOC ---
Discharge Summary General Date of Admission Aug 12, 2018 at 19:30 Date of Discharge 08/25/2018 Discharge Summary Family Law Attorney Dr. Patel Infectious disease: Dr. Avendaño electronic data interchange specialist: Dr. Magallon PROCEDURES PERFORMED DURING STAY: 08/19/18 -Dr. Patel Left foot 1st metatarsal head resection. Extensor tendon lengthening and incision and drainage. 08/22/18 - Dr. Patel Left foot incision and drainage and wound closure. ADMITTING DIAGNOSES: 1. Osteomyelitis of the left foot. 2. Sepsis. 3. Acute kidney injury (NIKHIL). DISCHARGE DIAGNOSES: 1. Sepsis secondary to acute osteomyelitis infected diabetic foot ulcer and abscess 2.Chronic kidney disease 3. Diabetes mellitus 4. Hypertension 5. Hyperlipidemia 6. History of HIV 7. Anemia of chronic disease and iron deficiency anemia 8. GERD COMPLICATIONS/CHIEF COMPLAINT: Osteomyelitis Of Ankle Or Foot, Left,Acute/Sepsis. HISTORY OF PRESENT ILLNESS: This is a 48-year-old male with past medical history of hypertension, hyperlipidemia, HIV, diabetes, diabetic neuropathy, chronic left diabetic foot u lcer, status post hyperbaric therapy and multiple debridements seen by Dr. Magallon presents to the emergency room from Dr. Magallon's office after patient came in for followup visit. The patient had subjective feeling of aches and chills in the office and the wound looked necrotic, so Dr. Magallon did debride the wound and sent the patient to the ER for evaluation. In the ER, the patient was septic with a blood pressure of 92/48 and was started on IV fluids. Patient had a temperature of 100.1 and a white count of 12.3000. When I examined him he was definitely lethargic, though verbally appropriate. He said that the wound was doing great during hyperbaric treatment, but has slowly been deteriorating over the last two weeks and did mention the fact that he had subjective feeling of fever, aches and chills and decreased by mouth intake. He was started on IV vancomycin and Zosyn and he will be admitted for further management HOSPITAL COURSE: Patient was admitted for sepsis secondary to osteomyelitis of the left foot. On the day of admission had an elevated creatinine of 2.02, lethargy and hypotension with a blood pressure of 92/48 with all point to a picture of sepsis. He recently had a wound debridement earlier that day at Dr. Umaña office and a bone biopsy pathology was consistent with osteomyelitis. He was started on IV antibiotics but was titrated for infectious diseases recommendations. Dr. Patel was consulted as well who dated a first metatarsal head resection and at the same time found an abscess, which was seen on MRI, and proceeded to do an I&D as well. His wound cultures from his surgery came back positive for MRSA and enterococcus bacillus. He was started on IV vancomycin and Liza shirley was called to set up outpatient IV antibiotics per [facility] was recommendation. Clinically the patient improved with this antibiotic therapy and on the day of discharge he was stable to go home. He was recommended to continue with the IV vancomycin as prescribed for the next 4-6 weeks and will follow-up with Dr. Avendaño in 2 weeks, Dr. Patel in 1 week and to have labs drawn every week . He was agreeable to all the recommendations DISCHARGE MEDICATIONS: Please see below. ALLERGIES: Please see below. PHYSICAL EXAMINATION ON DISCHARGE: VITAL SIGNS: Please see below. General: No acute distress, laying comfortably in bed. HEENT: Moist mucous membranes. Neck: No JVD or lymphadenopathy Cardiac: RRR, No murmurs Pulm: Clear to auscultation b/l. No wheezing, rhonchi Abd: NT/ND + BS Ext: No edema or cyanosis. Distal pulses intact. Erythema around the left foot status post resection of the first metatarsal head covered with an SADE dressing no obvious purulent drainage noted on the bandage. No tenderness on palpation of the toes. LABORATORY DATA: Please see below. IMAGIN08/12/2018 Chest x-ray Impression: No acute disease. X-ray foot Impression: Changes consistent with osteomyelitis of the distal end of the first metatarsal. 08/17/2018 Foot MRI Impression: There are changes consistent with osteomyelitis involving the volar and medial aspect of the distal end of the first metatarsal with overlying soft tissue deficit. No other evidence of osteomyelitis is seen. There is a fluid collection distal to the amputated second metatarsal of uncertain etiology. Abscess cannot be excluded, but the bone adjacent to this shows normal signal intensity. There is a small quantity of joint fluid dorsally over the midfoot as well more laterally. 08/19/2018 Chest x-ray Impression: No acute cardiopulmonary process appreciated. PROGNOSIS: Fair ACTIVITY: As tolerated. DIET: Consistent carbohydrates DISPOSITION: Home DISCHARGE INSTRUCTIONS: 1. Follow-up with PCP as 7-10 days 2. Follow-up with Dr. Patel in 7 days 3. Follow-up with Dr. Avendaño in 14 days 4. Continue with IV vancomycin outpatient as prescribed 5. Dressing is to be saline soaked gauze to plantar wound, Telfa to dorsal incision, cover with dry gauze dressing change every other day. 6. Eat consistent carbohydrate diet 7. If symptoms return or worsen please call your PCP or return to the ER 8.Start of care with Dimitri between 5 and 7 pm today. Altagracia nurse to do dressing changes. [phone]. ITEMS TO FOLLOWUP ON OUTPATIENT: 1. Osteomyelitis plus abscess of the first metatarsal foot 2. Medical management 3. Diabetes mellitus 4. Wound care DISCHARGE CONDITION: Stable. TIME SPENT ON DISCHARGE: Greater than 35 minutes. Vital Signs/I&Os Vital Signs Date Time Temp Pulse Resp B/P (MAP) Pulse Ox O2 Delivery O2 Flow Rate FiO2 08/25/18 07:55 119/69 08/25/18 06:00 97.9 81 16 94 Room Air 08/22/18 15:30 2.0 I&O- Last 24 Hours up to 6 AM 08/25/18 06:00 Intake Total 1900 ml Output Total 0 ml Balance 1900 ml Laboratory Data Labs 24H Laboratory Tests 2 08/24/18 17:06: Bedside Glucose (Misc Panel) 93 08/24/18 20:16: Bedside Glucose (Misc Panel) 84 08/25/18 05:55: Bedside Glucose (Misc Panel) 96 FSBS Laboratory Tests Test 08/24/18 17:06 08/24/18 20:16 08/25/18 05:55 Range/Units Bedside Glucose (Misc Panel) 93 84 96 70-105 MG/DL Microbiology Microbiology 08/21/18 Blood Culture - Preliminary, Resulted No Growth after 72 hours. All specime... 08/21/18 Blood Culture - Preliminary, Resulted No Growth after 72 hours. All specime... 08/19/18 Blood Culture - Final, Complete NO GROWTH AFTER 5 DAYS 08/21/18 MRSA Screen - Final, Complete 08/19/18 Urine Culture - Final, Complete 08/19/18 Gram Stain - Final, Complete 08/19/18 Wound Culture - Final, Complete Enterococcus Faecalis Staph.aureus Methicillin Resis 08/19/18 Anaerobic Culture - Final, Complete Discharge Medications Scheduled (Align) 4 Mg Cap, 4 MG PO DAILY, (Reported) (Iron High-Potency) 325 Mg Tab, 325 MG PO DAILY, (Reported) (Genvoya [phone] mg) 1 Tab Tab, 1 TAB PO DAILY, (Reported) (Idania-Bid Probiotic) 1 Tab Tab, 1 EA PO BIDWM Bupropion HCl (Wellbutrin Xl) 300 Mg Tab, 300 MG PO DAILY, (Reported) Gabapentin (Neurontin) 600 Mg Tab, 600 MG PO QHS, (Reported) Insulin Glargine (Lantus Solostar) 100 Unit/Ml Inj, 40 UNIT SC DAILY, (Reported) Insulin Human Lispro (Humalog) 100 Unit/Ml Inj, 1 DOSE SC ACHS, (Reported) PER SLIDING SCALE Losartan Potassium (Losartan Potassium) 50 Mg Tab, 50 MG PO DAILY, (Reported) Multivitamins (Centrum) 1 Chw Chw, 1 TAB PO DAILY, (Reported) Omeprazole (Omeprazole Dr) 40 Mg Cap, 40 MG PO DAILY, (Reported) Potassium (Potassimin) 75 Mg Tab, 75 MG PO DAILY, (Reported) Pravastatin Sodium (Pravachol) 20 Mg Tab, 20 MG PO DAILY, (Reported) Allergies Coded Allergies: No Known Allergies (Unverified , 08/12/18) GME ATTESTATION GME ATTESTATION My faculty preceptor for this patient encounter was physically present during the encounter and was fully available. All aspects of the patient interview, examination, medical decision making process, and medical care plan development were reviewed and approved by the faculty preceptor. The faculty preceptor is aware and concurs with the plan as stated in the body of this note and will attest to such by his/her cosignature. ATTENDING NOTE I have both independently examined this patient as well as reviewed the note I have discussed in detail the findings and plan of treatment as documented in the note. I will continue to follow the patient and offer further guidance to the patients care as necessary during this hospital stay. NAE Back MD, DO Aug 25, 2018 13:25 BENIGNO WALLACE MD Aug 26, 2018 12:50
== END 2018-08-25 11:45 | disposition home or self-care (01) | DRG 710 ==
LOC: EDBD 16:12 → M ED 16:12 → M ED INP 19:30 → M PCU 23:24 → M MSPAV 08-13 10:53
PROVIDERS: ADMIT Internal Medicine Nephrology; ATTEND Hospitalist
PROC: 0LNW0ZZ Release Left Foot Tendon, Open Approach (ICD-10-PCS; 2018-08-19)
PROC: 0Y6Q0Z1 Detachment at Left 1st Toe, High, Open Approach (ICD-10-PCS; principal; 2018-08-19 13:55)
PROC: 0Q9M0ZZ Drainage of Left Tarsal, Open Approach (ICD-10-PCS; 2018-08-22)
DX: A41.9 Sepsis, unspecified organism (principal); B20 Human immunodeficiency virus [HIV] disease; N17.9 Acute kidney failure, unspecified; E11.40 Type 2 diabetes mellitus with diabetic neuropathy, unspecified; N18.3 Chronic kidney disease, stage 3 (moderate); E11.69 Type 2 diabetes mellitus with other specified complication; E11.621 Type 2 diabetes mellitus with foot ulcer; L03.116 Cellulitis of left lower limb; M86.172 Other acute osteomyelitis, left ankle and foot; E78.5 Hyperlipidemia, unspecified; K21.9 Gastro-esophageal reflux disease without esophagitis; I12.9 Hypertensive chronic kidney disease with stage 1 through stage 4 chronic kidney disease, or unspecified chronic kidney disease; D63.1 Anemia in chronic kidney disease; M90.872 Osteopathy in diseases classified elsewhere, left ankle and foot; Z79.899 Other long term (current) drug therapy; Z79.4 Long term (current) use of insulin; B95.61 Methicillin susceptible Staphylococcus aureus infection as the cause of diseases classified elsewhere

== ENCOUNTER → 2018-08-12 | Outpatient (REF) | payer OTHER ==
[~2018-08-12] MED LIST changes: +DEXTROSE 50% 50 ML SYRINGE IV STA
== END ==
LOC: M LAB REF 17:32
PROVIDERS: ATTEND Surgery
DX: E11.621 Type 2 diabetes mellitus with foot ulcer (principal)

== ENCOUNTER → 2018-10-13 | Outpatient (REF) | payer OTHER ==
[~2018-10-13] MED LIST changes: -DEXTROSE 50% 50 ML SYRINGE IV STA; +RISATAB3 PO
[2018-10-14 09:44] LABS: BASO % 0.6 % (0.0-1.0); EOS # 0.2 10^3/uL (0.0-0.50); EOS % 2.6 % (0.0-3.0); HEMATOCRIT 33.6 % (42.0-52.0); LYMPH # 1.9 10^3/uL (1.5-4.5); LYMPH % 27.6 % (24.0-44.0); MEAN CORPUSCULAR HEMOGLOBIN 30.1 pg (27.0-33.0); MEAN CORPUSCULAR HGB CONC 32.7 g/dl (32.0-36.5); MEAN CORPUSCULAR VOLUME 92.1 fl (80.0-96.0); MONO # 0.5 10^3/uL (0.0-0.8); NEUTROPHILS # 4.3 10^3/uL (1.8-7.7); NEUTROPHILS % 61.8 % (36.0-66.0); PLATELET COUNT, AUTOMATED 253 10^3/uL (150-450); RED BLOOD COUNT 3.65 10^6/uL (4.30-6.10)
[2018-10-14 09:45] LABS: BILIRUBIN,TOTAL 0.3 MG/DL (0.2-1.0); C REACTIVE PROTEIN QUANTITATIV 0.94 MG/DL (0.00-0.30); CALCIUM LEVEL 8.5 MG/DL (8.5-10.1); CREATININE FOR GFR 1.87 MG/DL (0.70-1.30); GLOMERULAR FILTRATION RATE 41.2 (>60); POTASSIUM SERUM 4.3 MEQ/L (3.5-5.1)
[2018-10-14 10:14] LABS: ERYTHROCYTE SEDIMENTATION RATE 56 mm/hr (0-15)
== END ==
LOC: M LAB REF 09:23
PROVIDERS: ATTEND Internal Medicine Infectious Disease
DX: B20 Human immunodeficiency virus [HIV] disease (principal); M86.171 Other acute osteomyelitis, right ankle and foot

== ENCOUNTER → 2019-01-04 | Outpatient (REF) | payer OTHER ==
[~2019-01-04] MED LIST changes: +FERR325T82 PO; -IRON325T7 PO
[2019-01-04 13:41] LABS: HEMOGLOBIN A1c 9.8 %
[2019-01-04 13:58] LABS: ALBUMIN 3.6 GM/DL (3.2-5.2); ALT/SGPT 42 U/L (12-78); BILIRUBIN,TOTAL 0.3 MG/DL (0.2-1.0); BLOOD UREA NITROGEN 36 MG/DL (7-18); CALCIUM LEVEL 8.8 MG/DL (8.5-10.1); CARBON DIOXIDE LEVEL 30 MEQ/L (21-32); CHLORIDE LEVEL 104 MEQ/L (98-107); CREATININE FOR GFR 1.66 MG/DL (0.70-1.30); GLOMERULAR FILTRATION RATE 47.3 (>60); GLUCOSE, FASTING 171 MG/DL (70-100); IRON (FE) 77 UG/DL (65-175); PERCENT SATURATION 23.6 % (19.7-50.0); SODIUM LEVEL 139 MEQ/L (136-145); TOTAL IRON BINDING CAPACITY 326 UG/DL (250-450); TOTAL PROTEIN 8.1 GM/DL (6.4-8.2)
[2019-01-04 14:36] LABS: HEPATITIS C VIRUS ABY INDEX < 0.0 INDEX (<0.8)
== END ==
LOC: M SFHCPLAZ 11:47
PROVIDERS: ATTEND Internal Medicine Infectious Disease
DX: E11.621 Type 2 diabetes mellitus with foot ulcer (principal); B20 Human immunodeficiency virus [HIV] disease; R94.5 Abnormal results of liver function studies

== ENCOUNTER → 2019-02-12 | Outpatient (REF) | payer OTHER ==
[~2019-02-12] MED LIST changes: +ADME100I SC; +BASA100I SC; +DOXY-350 PO; +DOXY100T16 PO; +PRAV40TA2 PO; +ZOLP5TAB PO
== END ==
LOC: M LAB REF 17:16
PROVIDERS: ATTEND Surgery
DX: E11.621 Type 2 diabetes mellitus with foot ulcer (principal)

== ENCOUNTER 2019-02-22 18:54 | Inpatient (IN) | payer OTHER ==
[~2019-02-22] VITALS: Ht 170.2 cm; Wt 72.4 kg
[~2019-02-22 18:54] MED LIST changes: -ADME100I SC; -BASA100I SC; -DOXY-350 PO; -DOXY100T16 PO; -PRAV40TA2 PO; -ZOLP5TAB PO
[2019-02-22] MEDS ORDERED: DOXY-350 PO (19:03)
[2019-02-22 19:41] LABS: HEMATOCRIT 33.4 % (42.0-52.0); HEMOGLOBIN 11.2 g/dl (13.5-17.5); MEAN CORPUSCULAR HEMOGLOBIN 30.9 pg (27.0-33.0); MEAN CORPUSCULAR HGB CONC 33.5 g/dl (32.0-36.5); MEAN CORPUSCULAR VOLUME 92.3 fl (80.0-96.0); PLATELET COUNT, AUTOMATED 300 10^3/uL (150-450); RED BLOOD COUNT 3.62 10^6/uL (4.30-6.10); WHITE BLOOD COUNT 9.8 10^3/uL (4.0-10.0)
[2019-02-22 20:22] LABS: ALBUMIN 3.2 GM/DL (3.2-5.2); BILIRUBIN,TOTAL 0.3 MG/DL (0.2-1.0); CALCIUM LEVEL 8.9 MG/DL (8.5-10.1); CREATININE FOR GFR 2.31 MG/DL (0.70-1.30); GLOMERULAR FILTRATION RATE 32.3 (>60); TOTAL PROTEIN 7.7 GM/DL (6.4-8.2)
[2019-02-22] MEDS: FERROUS SULFATE 325MG TAB PO SCH (21:00)
[2019-02-22] MEDS: zolPIDEM TARTRATE 5 MG TAB PO SCH (21:00)
[2019-02-22] MEDS: GABAPENTIN 300 MG CAP PO SCH (21:00)
[2019-02-22] MEDS: PRAVASTATIN 20 MG TAB PO SCH (21:00)
[2019-02-22 21:29] LABS: VENOUS BASE EXCESS 0.4 (-2.0-2.0); VENOUS HCO3 25.6 MEQ/L (23.0-27.0); VENOUS O2 SATURATION 87.5 % (60.0-80.0); VENOUS PARTIAL PRESSURE CO2 43.4 mmHg (38.0-50.0); VENOUS PARTIAL PRESSURE O2 56.1 mmHg (30.0-50.0); VENOUS PH 7.388 UNITS (7.330-7.430); VENOUS STANDARD HCO3 24.6 MEQ/L; VENOUS TOTAL CO2 26.9 MEQ/L (24.0-28.0)
[2019-02-22] MEDS ORDERED: VANCOMYCIN HCL 1,000 MG, VIAL MATE ADAPTER 1 EACH in D5W 250 ML IV ONE (21:30)
[2019-02-22] MEDS ORDERED: PIPERACILLIN/TAZOBACTAM SOD 3.375 GM in D5W MINI-BAG PLUS 50 ML IV ONE (21:30)
[2019-02-22] MEDS ORDERED: NS 1,000 ML IV ONE (21:30)
[2019-02-22 21:38] LABS: BASO % 0.4 % (0.0-1.0); EOS # 0.1 10^3/uL (0.0-0.50); EOS % 1.3 % (0.0-3.0); LYMPH # 1.2 10^3/uL (1.5-4.5); LYMPH % 12.4 % (24.0-44.0); MONO # 0.5 10^3/uL (0.0-0.8); MONO % 5.5 % (0.0-5.0); NEUTROPHILS # 7.8 10^3/uL (1.8-7.7); NEUTROPHILS % 80.1 % (36.0-66.0)
[2019-02-22] MEDS ORDERED: HumuLIN R (REGULAR) INSULIN (NovoLIN R) **100U/ML** PER UNIT IV ONE (21:45)
[2019-02-22 21:50] LABS: C REACTIVE PROTEIN QUANTITATIV 18.1 MG/DL (0.00-0.30)
[2019-02-22 21:59] LABS: ERYTHROCYTE SEDIMENTATION RATE 115 mm/hr (0-15)
[2019-02-23] VITALS (10 sets, daily range): BP systolic 135–150; BP diastolic 71–81
[2019-02-23] MEDS ORDERED: ACETAMINOPHEN TAB 650MG DOSE (2X325MG) PO PRN (00:15)
--- NOTE | 2019-02-23 00:31 | HPEPDOC ---
General Date of Admission 02/23/19 Date of Service: Feb 23, 2019 Chief Complaint The patient is a 48-year-old male admitted with a reason for visit of Skin Problem. History of Present Illness This is a 48yo male with multiple pmhx including DM1 who presented to the ed for fever of 102 today. His mother also noted increased drainage from the wound. Patient has been following up with wound care. He denied, nausea,vomiting headache or blurry visions. ROS - all 14 point review of system is negative except for whats listed in HPI Pmhx - DM1, CKD stage 3, HIV on HAART therapy, anemia , fatty liver, depression social - lives alone, denied etoh use, drug use or cigarrette smoking surgical hx - multiple surgeries on left foot , excision of 2nd toes of left foot, appendectomy Allergy - lisinopril - angioedema Family hx - depression- maternal grandmother , heart disease - maternal grandmother and brother Home meds - see below Physical exam Gen: NAD, healthy appearing , HEENT: normocephalic, atraumatic, no discharge from ears or nose, no oropharyngeal erythema or exudate, neck is supple, no lymphadenopathy, trachea midline CVS: RRR, normal S1n S2, no murmur, rubs, or gallops, no edema, no jvd Resp: LCTAB, no rhonchi, wheezes or crackles Abd : soft nontender, normal bowel sounds, no rebound tenderness or guarding MSK: no swelling, full range of motion, strength 5/5, left healing plantar ulcer with very small opening that has drainage - somewhat clear fluid, but swelling and erythema noted on the first and second toes and on the first 1/3 of the dorsal and plantar section of the left foot Neuro: AOAx3, no confusion, no focal deficit Psych: normal mood and affect, good judgment Assessment and Plan Diabetic left foot cellulitis - based on xray looks like OM - pending official report c/w vanc and zosyn f/u blood cx f/u wound cx podiatry aware - official consult ordered control blood sugar hypoglycemic protocol f//u hba1c Other chronic illness hiv//depression//anemia ckd3 c/w home meds avoid nephrotoxic agents f/u cd4 count pt is nonsuicidal dvt ppx full code, from home Home Medications Scheduled Bifidobacterium Infantis (Align) 4 Mg Cap, 4 MG PO DAILY, (Reported) Bupropion HCl (Wellbutrin Xl) 300 Mg Tab, 300 MG PO DAILY, (Reported) Doxycycline Monohydrate (Doxycycline Monohydrate) 100 Mg Tablet, 100 MG PO BID, (Reported) Elviteg/Cob/Emtri/Tenof Alafen (Genvoya Tablet) 1 Tab Tab, 1 TAB PO DAILY, (Reported) Ferrous Sulfate (Iron) 325 Mg Tab, 325 MG PO QHS, (Reported) Gabapentin (Neurontin) 600 Mg Tab, 600 MG PO QHS, (Reported) Insulin Glargine,Hum.rec.anlog (Basaglar Kwikpen U-100) 100 Unit/1 Ml Insuln.pen, 30 UNIT SC QAM, (Reported) Insulin Lispro (Admelog) 100 Unit/1 Ml Vial, 1 UNIT SC ACHS, (Reported) SLIDING SCALE Losartan Potassium (Losartan Potassium) 50 Mg Tab, 50 MG PO DAILY, (Reported) Multivit-Min/Iron/Folic/Vit K1 (Centrum Chewables Adults Tab) 1 Chw Chw, 1 TAB PO DAILY, (Reported) Omeprazole (Omeprazole) 40 Mg Cap, 40 MG PO DAILY, (Reported) Pravastatin Sodium (Pravastatin Sodium) 40 Mg Tablet, 40 MG PO QHS, (Reported) Zolpidem Tartrate (Zolpidem Tartrate) 5 Mg Tablet, 5 MG PO QHS, (Reported) Allergies Coded Allergies: lisinopril (Verified Allergy, Intermediate, facial swelling, 02/22/19) A-FIB/CHADSVASC A-FIB History Current/History of A-Fib/PAF?: No Current PO Anticoag Therapy: No Age/Risk Factor Scoring CHADSVASC: CHADSVASC Response (Comments) Value Age Risk Factor Age < 65 years old 0 Gender Risk Factor Male 0 Hx of CHF No 0 Hx of HTN No 0 Hx of Stroke/TIA/or VTE No 0 Hx of Diabetes Yes 1 Hx of Vascular Disease No 0 Total 1 Treatment Treatment ordered: NONE Reason Anticoagulant not given: Not indicated/[id number] Vital Signs Vital Signs Date Time Temp Pulse Resp B/P (MAP) Pulse Ox O2 Delivery O2 Flow Rate FiO2 02/22/19 21:08 02/22/19 18:55 100.6 97 18 96 Room Air Laboratory Data Labs 24H Laboratory Tests 2 02/22/19 19:26: Immature Granulocyte % (Auto) 0.3, Neutrophils (%) (Auto) 80.1H, Lymphocytes (%) (Auto) 12.4L, Monocytes (%) (Auto) 5.5H, Eosinophils (%) (Auto) 1.3, Basophils (%) (Auto) 0.4, Immature Granulocyte # (Auto) 0.0, Neutrophils # (Auto) 7.8H, Ly mphocytes # (Auto) 1.2L, Monocytes # (Auto) 0.5, Eosinophils # (Auto) 0.1, Basophils # (Auto) 0.0, Nucleated Red Blood Cells % (auto) 0.0, Platelet Estimate , Erythrocyte Sedimentation Rate 115H, Anion Gap 8, Glomerular Filtration Rate 32.3L, Blood Urea Nitrogen 30H, Creatinine 2.31H, Sodium Level 1 28L, Potassium Level 5.0, Chloride Level 93L, Carbon Dioxide Level 27, Calcium Level 8.9, Aspartate Amino Transf (AST/SGOT) 18, Alanine Aminotransferase (ALT/SGPT) 23, Alkaline Phosphatase 137H, Total Bilirubin 0.3, Total Protein 7.7, Albumin 3.2, C-Reactive Protein, Quantitative 18.10H, Albumin/Globulin Ratio 0.71L 02/22/19 21:15: Blood Gas Bicarbonate Standard 24.6, Venous Blood pH 7.388, Venous Blood Partial Pressure CO2 43.4, Venous Blood Partial Pressure O2 56.1H, Venous Blood Total Carbon Dioxide 26.9, Venous Blood HCO3 25.6, Venous Blood Oxygen Saturation 87.5H, Venous Blood Base Excess 0.4, Lactic Acid Level 2.8*H CBC/BMP Laboratory Tests 02/22/19 19:26 Red Blood Count 3.62 L, Mean Corpuscular Volume 92.3, Mean Corpuscular Hemoglobin 30.9, Mean Corpuscular Hemoglobin Concent 33.5, Red Cell Distribution Width 11.6, Calcium Level 8.9, Aspartate Amino Transf (AST/SGOT) 18, Alanine Aminotransferase (ALT/SGPT) 23, Alkaline Phosphatase 137 H, Total Bilirubin 0.3, Total Protein 7.7, Albumin 3.2 Microbiology Microbiology 02/22/19 Blood Culture, Received Pending 02/22/19 Blood Culture, Received Pending Plan / VTE VTE Prophylaxis Ordered?: Yes EMPERATRIZ FUENTES MD Feb 22, 2019 23:41
[2019-02-23] MEDS ORDERED: BASA100I SC (00:38)
[2019-02-23] MEDS ORDERED: RISATAB3 PO (00:38)
[2019-02-23] MEDS ORDERED: ADME100I SC (00:38)
[2019-02-23] MEDS ORDERED: DOXY100T16 PO (00:38)
[2019-02-23] MEDS ORDERED: PRAV40TA2 PO (00:40)
[2019-02-23] MEDS ORDERED: ZOLP5TAB PO (00:41)
[2019-02-23] MEDS ORDERED: GLUCOSE 4 GM CHEW TABLET PO PRN (03:15)
[2019-02-23] MEDS ORDERED: GLUCAGON FOR INJ 1 MG VIAL (J1610) SC PRN (03:15)
[2019-02-23] MEDS ORDERED: DEXTROSE 50% 50 ML SYRINGE IV PRN (03:15)
[2019-02-23] MEDS: PIPERACILLIN/TAZOBACTAM SOD 3.375 GM in D5W MINI-BAG PLUS 50 ML IV SCH ×4 (03:45→22:00)
[2019-02-23] MEDS: HEPARIN SOD (PORCINE) 5000 UNITS/ML VIAL SC SCH ×3 (05:43→21:34)
[2019-02-23] MEDS: VANCOMYCIN HCL 1,000 MG, VIAL MATE ADAPTER 1 EACH in D5W 250 ML IV SCH ×2 (05:50→18:50)
[2019-02-23 07:07] LABS: HEMATOCRIT 30.6 % (42.0-52.0); HEMOGLOBIN 10.2 g/dl (13.5-17.5); MEAN CORPUSCULAR HEMOGLOBIN 30.9 pg (27.0-33.0); MEAN CORPUSCULAR HGB CONC 33.3 g/dl (32.0-36.5); MEAN CORPUSCULAR VOLUME 92.7 fl (80.0-96.0); PLATELET COUNT, AUTOMATED 279 10^3/uL (150-450)
[2019-02-23 07:22] LABS: CREATININE FOR GFR 1.75 MG/DL (0.70-1.30); GLOMERULAR FILTRATION RATE 44.5 (>60); MAGNESIUM LEVEL 2.5 MG/DL (1.8-2.4); POTASSIUM SERUM 4.3 MEQ/L (3.5-5.1)
--- NOTE | 2019-02-23 07:37 | REP ---
Left foot four views: Comparison is 08/12/2018. The head of the great toe metatarsal has been restored. There are bony fragments at the distal portion of the remaining great toe metatarsal shaft. This could be most traumatic or infectious or combination. There is amputation of the second digit at the proximal metatarsal shaft. This is unchanged. There is an old healed fracture of the fifth digit metatarsal neck. This is unchanged. There are resorptive changes at the base of the third digit metatarsal as an interval change. There is diffuse demineralization. There is soft tissue edema over the dorsum. Electronically Signed by Gene Scanlon MD 02/23/2019 07:28 A
[2019-02-23] MEDS: HumaLOG INSULIN (NovoLOG) PER UNIT SC SCH ×3 (08:05→18:50)
[2019-02-23 08:21] LABS: C REACTIVE PROTEIN QUANTITATIV 17.2 MG/DL (0.00-0.30)
[2019-02-23] MEDS: MULTIVITAMINS/MINERALS THERAP 1 TAB PO SCH (09:39)
[2019-02-23] MEDS: LOSARTAN 50 MG TAB PO SCH (09:39)
[2019-02-23] MEDS: PANTOPRAZOLE 40MG TAB (PROTONIX) PO SCH (09:39)
[2019-02-23] MEDS: DOCUSATE SODIUM 100 MG CAP PO SCH ×2 (09:39→21:34)
[2019-02-23] MEDS: LEVEMIR (INSULIN DETEMIR) 1 UNITS/0.01ML SC SCH (09:40)
[2019-02-23] MEDS: buPROPion **XL** TABLET 150MG (WELLBUTRIN XL) PO SCH (12:22)
--- NOTE | 2019-02-23 13:26 | CR ---
DATE: 02/23/2019 at 11:50 a.m. CHIEF COMPLAINT: Patient seen for evaluation of an abscess on his left foot. The patient has been seeing Dr. Magallon for wound on his left foot. He has had surgery on his left foot consisting of a second ray amputation as well as a metatarsal head resection and extensor tendon lengthening of the left foot. The patient was treated for osteomyelitis of his left foot. The patient was doing quite well until recently. He developed fever, chills and drainage from his left foot. He went to the emergency room and was subsequently admitted to the hospital and he is seen today for evaluation. ALLERGIES: LISINOPRIL. HOME MEDICATIONS: - Align 4 mg capsule daily - Wellbutrin XL 300 mg daily - doxycycline 100 mg twice a day - Genvoya one tablet daily - ferrous sulfate 225 mg by mouth at bedtime - gabapentin 600 mg by mouth at bedtime - insulin Lispro 100 unit via sliding scale - losartan 50 mg daily - multivitamin - omeprazole 40 mg daily - pravastatin 40 mg at bedtime - Zolpidem 5 mg by mouth at bedtime PAST SURGICAL HISTORY: Incision and drainage of infection right index finger from a cat bite. Appendectomy. Second ray amputation left foot. Metatarsal head resection left foot. REVIEW OF SYSTEMS: Positive for diabetes, diabetic neuropathy, HIV, chronic kidney disease, history of osteomyelitis left foot, hyperlipidemia, hypertension. PHYSICAL EXAMINATION: Reveals an alert, well orientated, 48-year-old male who is in no acute distress. There is a bandage present on his left foot. The bandage was removed today. There is an ulceration present on the plantar surface of the left foot sub metatarsal one. This measures 1 mm x 1 mm. It does tunnel 4 cm in depth extending to the dorsal surface of the foot. There is a purulent drainage noted. X-rays were reviewed revealing previous second ray amputation as well as a first metatarsal head resection. There is some osseous bone reaction on the metatarsal. Blood cultures are pending. White blood cell count was 9.8 on admission and today is 9.0. ESR 115. C-reactive protein on admission 18.1 and 17.2 today. GFR is 44.5. ASSESSMENT: Abscess formation left foot with diabetes and diabetic neuropathy. PLAN: We discussed with the patient exploration of the wound on his left foot with incision and drainage of abscess. If the bone appears infected, discussed a possible bone biopsy and debridement if needed. His questions were answered. Informed consent was obtained and signed by the patient. The patient has been nothing by mouth since breakfast.
[2019-02-23] MEDS: GENVOYA PO SCH (14:00)
--- NOTE | 2019-02-23 14:28 | IPNPDOC ---
Subjective Date Seen The patient was seen on 02/23/19. Subjective Chief Complaint/HPI Pt reports he has been feeling well this morning without a recurrent fever or chills. He denies foot pain and states the swelling and erythema of his left foot has been stable since his admission. Constitutional: Denies: Chills, Fever, Night Sweats Skin: Reports: Rash (redness and swelling of the left foot) Pulmonary: Denies: Dyspnea, Cough Cardiovascular: Denies: Chest Pain, Palpitations, Lt Headedness Gastrointestinal: Denies: Nausea, Vomiting, Abdominal Pain, Diarrhea Genitourinary: Denies: Dysuria, Frequency Musculoskeletal: Denies: Foot Pain, Joint Pain, Muscle Pain Objective Physical Examination General Exam: Positive: Alert, Cooperative, No Acute Distress Eye Exam: Positive: PERRLA, Conjunctiva & lids normal ENT Exam: Positive: Atraumatic, Mucous membr. moist/pink Chest Exam: Positive: Clear to auscultation, Normal air movement; Negative: Rhonchi, Wheezing Heart Exam: Positive: Rate Normal, Normal S1, Normal S2; Negative: Murmurs, Rubs Abdomen Exam: Positive: Normal bowel sounds, Soft; Negative: Tenderness Extremity Exam: Positive: Normal pulses, Swelling (swelling of the left foot c ompared to the right up to the ankle. ); Negative: Cyanosis, Tenderness Skin Exam: Positive: Nl turgor and temperature, Rash (erythema of the left foot surronding the lesion described and extending proximally on the foot.), Lesion (ulceration present on the plantar surface along first metatarsal with small amount of clear, purulent discharge) Neuro Exam: Positive: Normal Speech, Strength at 5/5 X4 ext Psych Exam: Positive: Mental status NL, Mood NL, Oriented x 3 Assessment /Plan Assessment 48 year old male presents with abscess of the left foot Plan/VTE VTE Prophylaxis Ordered?: Yes Plan 1. Left foot abscess with recent history of osteomyelitis Pt presented with fevers and worsening swelling of the left foot. He has been following with podiatry and was recently started on treatment for osteomyelitis. Consulted podiatry and appreciate their input. Dr. Bernardo may perform incision and drainage and evaluate the bone for osteomyelitis. Pt is on vancomycin and zosyn for antibiotic coverage. Blood cultures and wound cultures pending. 2. Diabetes Mellitus On sliding scale insulin while in the hospital. 3. HIV Continue home medications. Check CD4 level. Follows with ID as an outpatient 4. Iron deficiency anemia Continue iron supplement. 5. Depression continue home medications 6. HTN Continue home medications and monitor Disposition: - Will start PT / OT - Await culture results - Adjust antibiotics based on sensitives VS, I&O, 24H, Fishbone Vital Signs/I&O Vital Signs Date Time Temp Pulse Resp B/P (MAP) Pulse Ox O2 Delivery O2 Flow Rate FiO2 02/23/19 09:39 147/71 02/23/19 09:00 97.7 82 19 97 02/23/19 08:12 Room Air Laboratory Data 24H LABS Laboratory Tests 2 02/22/19 19:26: Immature Granulocyte % (Auto) 0.3, Neutrophils (%) (Auto) 80.1H, Lymphocytes (%) (Auto) 12.4L, Monocytes (%) (Auto) 5.5H, Eosinophils (%) (Auto) 1.3, Basophils (%) (Auto) 0.4, Immature Granulocyte # (Auto) 0.0, Neutrophils # (Auto) 7.8H, Lymphocytes # (Auto) 1.2L, Monocytes # (Auto) 0.5, Eosinophils # (Auto) 0.1, Basophils # (Auto) 0.0, Nucleated Red Blood Cells % (auto) 0.0, Platelet Estimate , Erythrocyte Sedimentation Rate 115H, Anion Gap 8, Glomerular Filtrati on Rate 32.3L, Blood Urea Nitrogen 30H, Creatinine 2.31H, Sodium Level 128L, Potassium Level 5.0, Chloride Level 93L, Carbon Dioxide Level 27, Calcium Level 8.9, Aspartate Amino Transf (AST/SGOT) 18, Alanine Aminotransferase (ALT/SGPT) 23, Alkaline Phosphatase 137H, Total Bilirubin 0.3, Total Protein 7.7, Albumin 3.2, C-Reactive Protein, Quantitative 18.10H, Albumin/Globulin Ratio 0.71L 02/22/19 21:15: Blood Gas Bicarbonate Standard 24.6, Venous Blood pH 7.388, Venous Blood Partial Pressure CO2 43.4, Venous Blood Partial Pressure O2 56.1H, Venous Blood Total Carbon Dioxide 26.9, Venous Blood HCO3 25.6, Venous Blood Oxygen Saturation 87.5H, Venous Blood Base Excess 0.4, Lactic Acid Level 2.8*H 02/22/19 23:20: Bedside Glucose (Misc Panel) 296H 02/22/19 23:59: Urine Color YELLOW, Urine Appearance CLEAR, Urine pH 6.0, Urine Specific [place] 1.010, Urine Protein NEGATIVE, Urine Glucose (UA) 3+H, Urine Ketones NEGATIVE, Urine Blood NEGATIVE, Urine Nitrite NEGATIVE, Urine Bilirubin NEGATIVE, Urine Urobilinogen 0.2, Urine Leukocyte Esterase NEGATIVE, Urine WBC (Auto) 1, Urine RBC (Auto) 3, Urine Hyaline Casts (Auto) 0, Urine Bacteria (Auto) NEGATIVE, Urine Squamous Epithelial Cells 0, Urine Sperm (Auto) 02/23/19 06:45: Nucleated Red Blood Cells % (auto) 0.0, Anion Gap 3L, Glomerular Filtration Rate 44.5L, Lactic Acid Level 0.7, Blood Urea Nitrogen 21H, Creatinine 1.75H, Sodium Level 138#, Potassium Level 4.3, Chloride Level 105, Carbon Dioxide Level 30, Calcium Level 9.0, Magnesium Level 2.5H, C-Reactive Protein, Quantitative 17.20H 02/23/19 07:52: Bedside Glucose (Misc Panel) 117H 02/23/19 12:10: Bedside Glucose (Misc Panel) 71 CBC/BMP Laboratory Tests 02/22/19 19:26 Red Blood Count 3.62 L, Mean Corpuscular Volume 92.3, Mean Corpuscular Hemoglobin 30.9, Mean Corpuscular Hemoglobin Concent 33.5, Red Cell Distribution Width 11.6, Calcium Level 8.9, Aspartate Amino Transf (AST/SGOT) 18, Alanine Aminotransferase (ALT/SGPT) 23, Alkaline Phosphatase 137 H, Total Bilirubin 0.3, Total Protein 7.7, Albumin 3.2 02/23/19 06:45 Red Blood Count 3.30 L, Mean Corpuscular Volume 92.7, Mean Corpuscular Hemoglobin 30.9, Mean Corpuscular Hemoglobin Concent 33.3, Red Cell Distribution Width 11.5, Calcium Level 9.0 Microbiology Microbiology 02/22/19 Blood Culture, Received Pending 02/22/19 Blood Culture, Received Pending GME ATTESTATION GME ATTESTATION My faculty preceptor for this patient encounter was physically present during the encounter and was fully available. All aspects of the patient interview, examination, medical decision making process, and medical care plan development were reviewed and approved by the faculty preceptor. The faculty preceptor is aware and concurs with the plan as stated in the body of this note and will attest to such by his/her cosignature. ATTENDING NOTE I, Angelica Cabrales, have independently examined this patient and performed my own physical exam, as well as reviewed the documentation and edited where necessary. I have discussed in detail with the resident / student the findings and plan of treatment as documented by the resident / student and edited their note. I agree with their findings and treatment plan and have edited their documentation. I will continue to follow the patient during this hospital stay. SARAH FORBES PGY-1 Feb 23, 2019 14:28 ANGELICA CABRALES MD Feb 23, 2019 16:39
[2019-02-23] MEDS ORDERED: BUPIVACAINE HCL 0.5% 30 ML VIAL As Ordered ONE (15:13)
[2019-02-23] MEDS ORDERED: LIDOCAINE 2% MDV 20 ML VIAL As Ordered ONE (15:13)
[2019-02-23] MEDS ORDERED: dexameTHASONE 4 MG/ML 1ML VIAL (J1100) As Ordered ONE (15:13)
[2019-02-23] MEDS ORDERED: NEOSPORIN GU IRRIG 20 ML VIAL As Ordered ONE (15:14)
[2019-02-23] MEDS ORDERED: ROPIvacaine 0.5% 30 ML INJECTION (J2795 PER 1MG) As Ordered ONE (15:14)
[2019-02-23] MEDS ORDERED: BACITRACIN PWD 50,000 UNITS VIAL As Ordered ONE (15:14)
[2019-02-23] MEDS ORDERED: PROPOFOL 200 MG/20 ML VIAL As Ordered ONE (16:39)
[2019-02-23] MEDS ORDERED: fentaNYL 100 MCG/2 ML INJECTION (J3010) As Ordered ONE (16:40)
[2019-02-23] MEDS ORDERED: LIDOCAINE 2% INJ 100 MG/5 ML SDV (FOR ANES.) As Ordered ONE (16:40)
[2019-02-23] MEDS ORDERED: MIDAZOLAM INJ 2 MG/2 ML VIAL (J2250) As Ordered ONE (16:40)
[2019-02-23] MEDS ORDERED: GENTAMICIN SULF INJ 80MG/2ML VIAL (J1580) As Ordered ONE (16:56)
[2019-02-23] MEDS ORDERED: oxyCODONE 5MG TAB PO PRN (18:15)
[2019-02-23] MEDS ORDERED: LR 1,000 ML IV SCH (18:15)
[2019-02-23] MEDS ORDERED: ONDANSETRON 4MG/2ML VIAL (J2405) IV PRN (18:15)
[2019-02-23] MEDS: PRAVASTATIN 20 MG TAB PO SCH (21:33)
[2019-02-23] MEDS: GABAPENTIN 300 MG CAP PO SCH (21:33)
[2019-02-23] MEDS: FERROUS SULFATE 325MG TAB PO SCH (21:34)
[2019-02-24] MEDS: zolPIDEM TARTRATE 5 MG TAB PO SCH ×2 (00:51→21:46)
[2019-02-24] MEDS: PIPERACILLIN/TAZOBACTAM SOD 3.375 GM in D5W MINI-BAG PLUS 50 ML IV SCH ×4 (04:36→21:45)
[2019-02-24 06:00] VITALS: BP 134/70
[2019-02-24] MEDS: HEPARIN SOD (PORCINE) 5000 UNITS/ML VIAL SC SCH ×3 (06:14→21:46)
[2019-02-24] MEDS: VANCOMYCIN HCL 1,000 MG, VIAL MATE ADAPTER 1 EACH in D5W 250 ML IV SCH ×2 (06:14→17:37)
[2019-02-24] MEDS: HumaLOG INSULIN (NovoLOG) PER UNIT SC SCH ×3 (07:30→17:36)
--- NOTE | 2019-02-24 07:42 | RO ---
DATE OF PROCEDURE: 02/23/2019 PREOPERATIVE DIAGNOSIS: Abscess formation, possible osteomyelitis, left foot. POSTOPERATIVE DIAGNOSIS: Abscess formation, possible osteomyelitis, left foot. SURGEON: Dr. Yuriy Fam DPM RVDA MASTER CERTIFIED RV TECHNICIAN: None. ANESTHESIA: Local MAC. IRRIGATION: Dilute Gentamicin solution 3 liters at a low pressure pulsed lavage system. DRAINS UTILIZED: 1/4 inch Iodoform gauze. HEMOSTASIS: None. ESTIMATED BLOOD LOSS: Less than 10 mL. PROCEDURES PERFORMED: 1. First metatarsal corticotomy with incision and drainage of abscess left foot. Attention was directed to the patient's plantar aspect of the left foot where there was a draining sinus tract on the plantar surface. A 1.5 cm incision was then placed centered over this draining sinus tract and the incision was deepened. The bone was easily probed preoperatively through the sinus tract. The cortical margins were irregular and there is a dorsal overhauling ledge on palpation. Utilizing a [place] the distal aspect of the bone was debrided, sent for aerobic and anaerobic culture and the soft-tissue was similarly cultured after the incision where there was some serous to purulent drainage. There was no considerable drainage from the wound after the wound was opened and explored. It did extend to the dorsal surface of the foot and therefore a small 5 mm stab incision was placed. The wound was pulsed lavaged with 3 liters of dilate Gentamicin solution with a low pressure pulsed lavage system. Intraoperative C-ARM images were obtained revealing a rounded first metatarsal after debridement. There was no remaining bony spicules noted. After the wound was copiously irrigated it was packed with the 1/4 inch iodoform gauze and a dry sterile dressing was applied. Patient will continue antibiotics until his culture becomes available. Patient's blood cultures are pending. Patient may bear weight on his left foot utilizing a surgical shoe.
[2019-02-24] MEDS: GENVOYA PO SCH (07:49)
[2019-02-24] MEDS: buPROPion **XL** TABLET 150MG (WELLBUTRIN XL) PO SCH (08:53)
[2019-02-24] MEDS: LEVEMIR (INSULIN DETEMIR) 1 UNITS/0.01ML SC SCH (08:53)
[2019-02-24] MEDS: DOCUSATE SODIUM 100 MG CAP PO SCH ×2 (08:53→21:47)
[2019-02-24] MEDS: LOSARTAN 50 MG TAB PO SCH (08:53)
[2019-02-24] MEDS: PANTOPRAZOLE 40MG TAB (PROTONIX) PO SCH (08:54)
[2019-02-24] MEDS: MULTIVITAMINS/MINERALS THERAP 1 TAB PO SCH (08:54)
[2019-02-24 09:08] LABS: BASO % 0.4 % (0.0-1.0); EOS # 0.2 10^3/uL (0.0-0.50); EOS % 3.2 % (0.0-3.0); HEMATOCRIT 29.8 % (42.0-52.0); HEMOGLOBIN 9.7 g/dl (13.5-17.5); LYMPH # 1.6 10^3/uL (1.5-4.5); LYMPH % 22.5 % (24.0-44.0); MEAN CORPUSCULAR HEMOGLOBIN 30.1 pg (27.0-33.0); MEAN CORPUSCULAR HGB CONC 32.6 g/dl (32.0-36.5); MEAN CORPUSCULAR VOLUME 92.5 fl (80.0-96.0); MONO # 0.4 10^3/uL (0.0-0.8); MONO % 6.2 % (0.0-5.0); NEUTROPHILS # 4.8 10^3/uL (1.8-7.7); NEUTROPHILS % 67.4 % (36.0-66.0); PLATELET COUNT, AUTOMATED 304 10^3/uL (150-450); RED BLOOD COUNT 3.22 10^6/uL (4.30-6.10); WHITE BLOOD COUNT 7.1 10^3/uL (4.0-10.0)
[2019-02-24 09:17] LABS: CALCIUM LEVEL 8.3 MG/DL (8.5-10.1); CREATININE FOR GFR 1.54 MG/DL (0.70-1.30); GLOMERULAR FILTRATION RATE 51.6 (>60); MAGNESIUM LEVEL 2.4 MG/DL (1.8-2.4); POTASSIUM SERUM 4.3 MEQ/L (3.5-5.1)
--- NOTE | 2019-02-24 12:38 | IPNPDOC ---
Subjective Date Seen The patient was seen on 02/24/19. Subjective Chief Complaint/HPI Patient reports he's been feeling well this morning without any recurrent fevers or chills. He is status post I&D of his left foot abscess. He denies any pain of the left foot. Constitutional: Denies: Chills, Fever, Night Sweats Pulmonary: Denies: Dyspnea, Cough Cardiovascular: Denies: Chest Pain, Palpitations, Lt Headedness Gastrointestinal: Denies: Nausea, Vomiting, Abdominal Pain, Diarrhea Genitourinary: Denies: Dysuria, Frequency Musculoskeletal: Denies: Joint Pain, Muscle Pain Neurological: Denies: Weakness, Confusion Objective Physical Examination General Exam: Positive: Alert, Cooperative, No Acute Distress Eye Exam: Positive: PERRLA, Conjunctiva & lids normal ENT Exam: Positive: Atraumatic, Mucous membr. moist/pink Chest Exam: Positive: Clear to auscultation, Normal air movement; Negative: Rhonchi, Wheezing Heart Exam: Positive: Rate Normal, Normal S1, Normal S2; Negative: Murmurs, Rubs Abdomen Exam: Positive: Normal bowel sounds, Soft; Negative: Tenderness Extremity Exam: Positive: Normal pulses, Swelling (swelling of the left foot compared to the right up to the ankle. ); Negative: Cyanosis, Tenderness Skin Exam: Positive: Nl turgor and temperature, Rash (erythema of the left foot surronding the lesion described and extending proximally on the foot.), Lesion (ulceration present on the plantar surface along first metatarsal) Neuro Exam: Positive: Normal Speech, Strength at 5/5 X4 ext Psych Exam: Positive: Mental status NL, Mood NL, Oriented x 3 Assessment /Plan Assessment 48 year old male presents with abscess of the left foot Plan/VTE VTE Prophylaxis Ordered?: Yes Plan 1. Left foot abscess with recent history of osteomyelitis - Pt presented with fevers and worsening swelling of the left foot. - He has been following with podiatry and was recently started on treatment for osteomyelitis. - Blood cultures and wound cultures pending. - Consulted podiatry and appreciate their input. Dr. Bernardo performed I&D of the lesion on 02/23/2019 - Pt is on vancomycin and zosyn for antibiotic coverage. - Will adjust antibiotics based on culture and sensitivity results. 2. Diabetes Mellitus - On sliding scale insulin while in the hospital. 3. HIV Continue home medications. Check CD4 level. Follows with ID as an outpatient 4. Iron deficiency anemia Continue iron supplement. 5. Depression continue home medications 6. HTN - Continue home medications and monitor Disposition - Will start PT / OT - Await culture results - Adjust antibiotics based on sensitives VS, I&O, 24H, Fishbone Vital Signs/I&O Vital Signs Date Time Temp Pulse Resp B/P (MAP) Pulse Ox O2 Delivery O2 Flow Rate FiO2 02/24/19 08:53 134/70 02/24/19 06:00 98.4 77 18 97 02/23/19 08:12 Room Air I&O- Last 24 Hours up to 6 AM 02/24/19 05:59 Intake Total 1640 ml Output Total 1005 ml Balance 635 ml Laboratory Data 24H LABS Laboratory Tests 2 02/23/19 14:47: Bedside Glucose (Misc Panel) 33*L 02/23/19 15:19: Bedside Glucose (Misc Panel) 88 02/23/19 15:48: Bedside Glucose (Misc Panel) 77 02/23/19 18:00: Bedside Glucose (Misc Panel) 131H 02/23/19 18:39: Bedside Glucose (Misc Panel) 122H 02/23/19 21:37: Bedside Glucose (Misc Panel) 289H 02/24/19 06:18: Bedside Glucose (Misc Panel) 121H 02/24/19 08:26: Anion Gap 5L, Glomerular Filtration Rate 51.6L, Blood Urea Nitrogen 11, Creatinine 1.54H, Sodium Level 140, Potassium Level 4.3, Chloride Level 106, Carbon Dioxide Level 29, Calcium Level 8.3L, Magnesium Level 2.4 02/24/19 08:27: Immature Granulocyte % (Auto) 0.3, White Blood Count 7.1, Red Blood Count 3.22L, Hemoglobin 9.7L, Hematocrit 29.8L, Mean Corpuscular Volume 92.5, Mean Corpuscular Hemoglobin 30.1, Mean Corpuscular Hemoglobin Concent 32.6, Red Cell Distribution Width 11.7, Platelet Count 304, Neutrophils (%) (Auto) 67.4H, Lymphocytes (%) (Auto) 22.5L, Monocytes (%) (Auto) 6.2H, Eosinophils (%) (Auto) 3.2H, Basophils (%) (Auto) 0.4, Neutrophils # (Auto) 4.8, Lymphocytes # (Auto) 1.6, Monocytes # (Auto) 0.4, Eosinophils # (Auto) 0.2, Basophils # (Auto) 0.0, Nucleated Red Blood Cells % (auto) 0.0 02/24/19 12:13: Bedside Glucose (Misc Panel) 191H CBC/BMP Laboratory Tests 02/24/19 08:26 Calcium Level 8.3 L 02/24/19 08:27 Red Blood Count 3.22 L, Mean Corpuscular Volume 92.5, Mean Corpuscular Hemoglobin 30.1, Mean Corpuscular Hemoglobin Concent 32.6, Red Cell Distribution Width 11.7, Neutrophils (%) (Auto) 67.4 H, Lymphocytes (%) (Auto) 22.5 L, Monocytes (%) (Auto) 6.2 H, Eosinophils (%) (Auto) 3.2 H, Basophils (%) (Auto) 0.4, Neutrophils # (Auto) 4.8, Lymphocytes # (Auto) 1.6, Monocytes # (Auto) 0.4, Eosinophils # (Auto) 0.2, Basophils # (Auto) 0.0 Microbiology Microbiology 02/22/19 Blood Culture - Preliminary, Resulted No growth after 24 hours . All specim... 02/22/19 Blood Culture - Preliminary, Resulted No growth after 24 hours . All specim... 02/23/19 Gram Stain, Received Pending 02/23/19 Wound Culture, Received Pending 02/23/19 Anaerobic Culture, Received Pending 02/23/19 Surgical Biopsy Culture, Worksheet Pending 02/23/19 Anaerobic Culture, Worksheet Pending GME ATTESTATION GME ATTESTATION My faculty preceptor for this patient encounter was physically present during the encounter and was fully available. All aspects of the patient interview, examination, medical decision making process, and medical care plan development were reviewed and approved by the faculty preceptor. The faculty preceptor is aware and concurs with the plan as stated in the body of this note and will attest to such by his/her cosignature. ATTENDING NOTE I, Angelica Cabrales, have independently examined this patient and performed my own physical exam, as well as reviewed the documentation and edited where necessary. I have discussed in detail with the resident / student the findings and plan of treatment as documented by the resident / student and edited their note. I agree with their findings and treatment plan and have edited their documentation. I will continue to follow the patient during this hospital stay. SARAH FORBES PGY-1 Feb 24, 2019 12:38 ANGELICA CABRALES MD Feb 24, 2019 15:18
[2019-02-24 14:00] VITALS: BP 151/77
[2019-02-24 14:11] LABS: % CD4+ LYMPHS 45.2 % (30.8-58.5); ABSOLUTE CD4 HELPER 723 /uL (359-1519); BASOPHILS 0 % (Not Estab.); EOSINOPHILS 3 % (Not Estab.); EOSINOPHILS ABSOLUTE 0.2 x10E3/uL (0.0-0.4); HCT 30.3 % (37.5-51.0); HGB 9.9 g/dL (13.0-17.7); LYMPHOCYTES 18 % (Not Estab.); LYMPHOCYTES ABSOLUTE 1.6 x10E3/uL (0.7-3.1); MCH 29.6 pg (26.6-33.0); MCHC 32.7 g/dL (31.5-35.7); MCV 91 fL (79-97); MONOCYTES 7 % (Not Estab.); MONOCYTES ABSOLUTE 0.6 x10E3/uL (0.1-0.9); NEUTROPHILS 72 % (Not Estab.); NEUTROPHILS ABSOLUTE 6.3 x10E3/uL (1.4-7.0); PLT 297 x10E3/uL (150-450); RBC 3.34 x10E6/uL (4.14-5.80); RDW 12.8 % (12.3-15.4); WBC 8.8 x10E3/uL (3.4-10.8)
[2019-02-24 18:00] VITALS: BP 158/79
--- NOTE | 2019-02-24 18:48 | IPN ---
DATE: 02/24/2019 CHIEF COMPLAINT: Patient seen today for evaluation of his left wound. Patient had a surgical incision and drainage, however, the edge of his bone was jagged and soft, therefore, a bone biopsy was performed with a corticotomy of the first metatarsal and subsequently packed with Iodoform gauze and a bandage. Today the bandage was removed. The wound packing was removed. There was no purulent drainage noted. A dry sterile dressing was applied to the patient's left foot. Patient's wound culture as well as bone culture are pending. Orders written to change the wound once a day. They are to cleanse the wound with Vashe, left stand for 15 minutes, then apply a dry sterile dressing. Patient's questions were answered.
[2019-02-24 20:11] VITALS: BP 161/77
[2019-02-24] MEDS: FERROUS SULFATE 325MG TAB PO SCH (21:47)
[2019-02-24] MEDS: PRAVASTATIN 20 MG TAB PO SCH (21:47)
[2019-02-24] MEDS: GABAPENTIN 300 MG CAP PO SCH (21:47)
[2019-02-25] MEDS: PIPERACILLIN/TAZOBACTAM SOD 3.375 GM in D5W MINI-BAG PLUS 50 ML IV SCH ×4 (04:04→22:28)
[2019-02-25 05:21] LABS: BASO # 0.1 10^3/uL (0.0-0.2); BASO % 0.9 % (0.0-1.0); EOS # 0.3 10^3/uL (0.0-0.50); EOS % 4.8 % (0.0-3.0); HEMATOCRIT 32.6 % (42.0-52.0); HEMOGLOBIN 10.7 g/dl (13.5-17.5); LYMPH # 1.9 10^3/uL (1.5-4.5); LYMPH % 35.1 % (24.0-44.0); MEAN CORPUSCULAR HEMOGLOBIN 30.8 pg (27.0-33.0); MEAN CORPUSCULAR HGB CONC 32.8 g/dl (32.0-36.5); MEAN CORPUSCULAR VOLUME 93.9 fl (80.0-96.0); MONO # 0.3 10^3/uL (0.0-0.8); MONO % 5.6 % (0.0-5.0); NEUTROPHILS # 2.9 10^3/uL (1.8-7.7); NEUTROPHILS % 53.2 % (36.0-66.0); PLATELET COUNT, AUTOMATED 295 10^3/uL (150-450); RED BLOOD COUNT 3.47 10^6/uL (4.30-6.10); WHITE BLOOD COUNT 5.4 10^3/uL (4.0-10.0)
[2019-02-25 05:42] LABS: CALCIUM LEVEL 9.3 MG/DL (8.5-10.1); CREATININE FOR GFR 1.68 MG/DL (0.70-1.30); GLOMERULAR FILTRATION RATE 46.7 (>60); MAGNESIUM LEVEL 2.3 MG/DL (1.8-2.4); POTASSIUM SERUM 4.7 MEQ/L (3.5-5.1)
--- NOTE | 2019-02-25 05:49 | PHACANCOPD ---
PHARMACY VANCOMYCIN DOSING Pt Demographics Demographics Patient Age:48 , Weight:71.500 , Gender: male Adjusted Body Weight Date: 02/25/19, Adjusted Body Weight: Kg Events Past 24 Hours Events Past 24 Hours: NO: Dialysis, Diuretic Therapy, Change in CrCl, Fever, Elevation in WBC, Pending Diagnostics, Pending Procedures, Other Vancomycin Vancomycin Target Ranges: 15-20 mcg/ml Vancomycin Load Y/N: No Load Dose Date Time Vancomycin Load Dose: Date: Time: Vancomycin Dose Date: 02/25/19. Current Vancomycin Dose: [1000mg q12h] Intermittent Dosing?: No Labs Labs Item Value Date Time White Blood Count 5.4 10^3/uL 02/25/19 0508 Glomerular Filtration Rate 46.7 L 02/25/19 0508 Creatinine 1.68 MG/DL H 02/25/19 0508 Vancomycin Level Trough 16.6 UG/ML 02/25/19 0508 Vital Signs Label Value Date Time Patient Temperature 98.3 degrees F 02/24/192010 Temperature Source Temporal 02/24/192010 Micro Microbiology 02/22/19 Blood Culture - Preliminary, Resulted No Growth after 48 hours. All Specime... 02/22/19 Blood Culture - Preliminary, Resulted No Growth after 48 hours. All Specime... 02/23/19 Gram Stain - Final, Resulted 02/23/19 Wound Culture, Resulted Pending 02/23/19 Anaerobic Culture, Resulted Pending 02/23/19 Surgical Biopsy Culture, Worksheet Pending 02/23/19 Anaerobic Culture, Worksheet Pending Creatinine Clearance Date:02/25/19. Creatinine Clearance: [~50]. Assessment and Plan Maintaining Current Dose?: Yes Reason for dose change: No Dose Change Pharmacist Note Pharmacist Note Date: 02/25/19. Pharmacist note:Trough of 16.6 is within target range. Will continue current dosing. Will continue to monitor and make adjustments as needed. BRET FUNES PHARMACY Feb 25, 2019 05:49
[2019-02-25 06:00] VITALS: BP 171/90
[2019-02-25] MEDS: HEPARIN SOD (PORCINE) 5000 UNITS/ML VIAL SC SCH ×3 (06:09→22:14)
[2019-02-25] MEDS: VANCOMYCIN HCL 1,000 MG, VIAL MATE ADAPTER 1 EACH in D5W 250 ML IV SCH ×2 (06:10→18:27)
[2019-02-25] MEDS: HumaLOG INSULIN (NovoLOG) PER UNIT SC SCH ×3 (06:20→16:36)
[2019-02-25] MEDS: GENVOYA PO SCH (08:34)
[2019-02-25] MEDS: MULTIVITAMINS/MINERALS THERAP 1 TAB PO SCH (08:35)
[2019-02-25] MEDS: LOSARTAN 50 MG TAB PO SCH (08:35)
[2019-02-25] MEDS: DOCUSATE SODIUM 100 MG CAP PO SCH ×2 (08:35→21:00)
[2019-02-25] MEDS: PANTOPRAZOLE 40MG TAB (PROTONIX) PO SCH (08:35)
[2019-02-25] MEDS: buPROPion **XL** TABLET 150MG (WELLBUTRIN XL) PO SCH (08:35)
[2019-02-25] MEDS: LEVEMIR (INSULIN DETEMIR) 1 UNITS/0.01ML SC SCH (08:36)
--- NOTE | 2019-02-25 09:49 | IPNPDOC ---
Subjective Date Seen The patient was seen on 02/25/19. Subjective Chief Complaint/HPI Patient is laying comfortably in bed. He reports he's been feeling well this morning and denies any recurrent fevers or chills. He is status post I&D of his left foot abscess. He denies any pain of the left foot.. He reports he has 6 episodes of loose watery stool since yesterday. Denies any abdominal pain and blood in his stool. Constitutional: Denies: Chills, Fever, Night Sweats ENT: Denies: Head Aches Pulmonary: Denies: Dyspnea, Cough Cardiovascular: Denies: Chest Pain, Palpitations, Lt Headedness Gastrointestinal: Reports: Diarrhea; Denies: Nausea, Vomiting, Abdominal Pain Genitourinary: Denies: Dysuria, Frequency Musculoskeletal: Denies: Joint Pain, Muscle Pain Neurological: Denies: Weakness, Confusion Objective Physical Examination General Exam: Positive: Alert, Cooperative, No Acute Distress Eye Exam: Positive: PERRLA, Conjunctiva & lids normal ENT Exam: Positive: Atraumatic, Mucous membr. moist/pink Chest Exam: Positive: Clear to auscultation, Normal air movement; Negative: Rhonchi, Wheezing Heart Exam: Positive: Rate Normal, Normal S1, Normal S2; Negative: Murmurs, Rubs Abdomen Exam: Positive: Normal bowel sounds, Soft; Negative: Tenderness Extremity Exam: Positive: Normal pulses; Negative: Cyanosis, Tenderness, Swelling (imrpoved) Skin Exam: Positive: Nl turgor and temperature, Rash (erythema of the left foot surronding the lesion described and extending proximally on the foot, improving), Lesion (ulceration present on the plantar surface along first metatarsal, dressed with clean dressing, no discharge noted) Neuro Exam: Positive: Normal Speech, Strength at 5/5 X4 ext Psych Exam: Positive: Mental status NL, Mood NL, Oriented x 3 Assessment /Plan Assessment 48 year old male presents with abscess of the left foot s/p incision and drainage Plan/VTE VTE Prophylaxis Ordered?: Yes Plan 1. Left foot abscess with recent history of osteomyelitis - Pt presented with fevers and worsening swelling of the left foot. - He has been following with podiatry and was recently started on treatment for osteomyelitis. - Blood cultures and wound cultures pending. - Consulted podiatry and appreciate their input. Dr. Bernardo performed I&D of the lesion on 02/23/2019 - Pt is on vancomycin and zosyn for antibiotic coverage. - Will adjust antibiotics based on culture and sensitivity results. 2. Diarrhea - Pt reports 6 episodes of loose, watery stools overnight - Will check C-Diff PCR since he has been on antibiotics - Consider changing antibiotics once cultures and sensitivities result 3. Diabetes Mellitus - On sliding scale insulin while in the hospital. 4. HIV Continue home medications. Check CD4 level. Follows with ID as an outpatient 5. Iron deficiency anemia Continue iron supplement. 6. Depression continue home medications 7. HTN - Continue home medications and monitor Disposition - Will start PT / OT - Await culture results - Adjust antibiotics based on sensitives VS, I&O, 24H, Fishbone Vital Signs/I&O Vital Signs Date Time Temp Pulse Resp B/P (MAP) Pulse Ox O2 Delivery O2 Flow Rate FiO2 02/25/19 08:35 171/90 02/25/19 06:00 97.2 76 18 97 02/23/19 08:12 Room Air I&O- Last 24 Hours up to 6 AM 02/25/19 06:00 Intake Total 1050 ml Balance 1050 ml Laboratory Data 24H LABS Laboratory Tests 2 02/24/19 12:13: Bedside Glucose (Misc Panel) 191H 02/24/19 17:25: Bedside Glucose (Misc Panel) 339H 02/24/19 20:40: Bedside Glucose (Misc Panel) 205H 02/24/19 22:57: Vancomycin Level Trough 25.4*H 02/25/19 05:08: Immature Granulocyte % (Auto) 0.4, White Blood Count 5.4, Red Blood Count 3.47L, Hemoglobin 10.7L, Hematocrit 32.6L, Mean Corpuscular Volume 93.9, Mean Corpuscular Hemoglobin 30.8, Mean Corpuscular Hemoglobin Concent 32.8, Red Cell Distribution Width 11.4L, Platelet Count 295, Neutrophils (%) (Auto) 53.2, Lymphocytes (%) (Auto) 35.1, Monocytes (%) (Auto) 5.6H, Eosinophils (%) (Auto) 4.8H, Basophils (%) (Auto) 0.9, Neutrophils # (Auto) 2.9, Lymphocytes # (Auto) 1.9, Monocytes # (Auto) 0.3, Eosinophils # (Auto) 0.3, Basophils # (Auto) 0.1, Nucleated Red Blood Cells % (auto) 0.0, Anion Gap 7L, Glomerular Filtration Rate 46.7L, Blood Urea Nitrogen 18#, Creatinine 1.68H, Sodium Level 137, Potassium Level 4.7, Chloride Level 102, Carbon Dioxide Level 28, Calcium Level 9.3, Magnesium Level 2.3, Vancomycin Level Trough 16.6 CBC/BMP Laboratory Tests 02/25/19 05:08 Red Blood Count 3.47 L, Mean Corpuscular Volume 93.9, Mean Corpuscular Hemoglobin 30.8, Mean Corpuscular Hemoglobin Concent 32.8, Red Cell Distribution Width 11.4 L, Neutrophils (%) (Auto) 53.2, Lymphocytes (%) (Auto) 35.1, Monocytes (%) (Auto) 5.6 H, Eosinophils (%) (Auto) 4.8 H, Basophils (%) (Auto) 0.9, Neutrophils # (Auto) 2.9, Lymphocytes # (Auto) 1.9, Monocytes # (Auto) 0.3, Eosinophils # (Auto) 0.3, Basophils # (Auto) 0.1, Calcium Level 9.3 Microbiology Microbiology 02/22/19 Blood Culture - Preliminary, Resulted No Growth after 48 hours. All Specime... 02/22/19 Blood Culture - Preliminary, Resulted No Growth after 48 hours. All Specime... 02/23/19 Gram Stain - Final, Resulted 02/23/19 Wound Culture, Resulted Pending 02/23/19 Anaerobic Culture, Resulted Pending 02/23/19 Surgical Biopsy Culture, Worksheet Pending 02/23/19 Anaerobic Culture, Worksheet Pending GME ATTESTATION GME ATTESTATION My faculty preceptor for this patient encounter was physically present during the encounter and was fully available. All aspects of the patient interview, examination, medical decision making process, and medical care plan development were reviewed and approved by the faculty preceptor. The faculty preceptor is aware and concurs with the plan as stated in the body of this note and will attest to such by his/her cosignature. ATTENDING NOTE I, Angelica Cabrales, have independently examined this patient and performed my own physical exam, as well as reviewed the documentation and edited where necessary. I have discussed in detail with the resident / student the findings and plan of treatment as documented by the resident / student and edited their note. I agree with their findings and treatment plan and have edited their documentation. I will continue to follow the patient during this hospital stay. SARAH FORBES PGY-1 Feb 25, 2019 09:49 ANGELICA CABRALES MD Feb 25, 2019 15:58
[2019-02-25 13:52] LABS: CLOSTRIDIUM DIFFICILE PCR NEGATIVE (NEGATIVE)
[2019-02-25 13:56] VITALS: BP 116/63
[2019-02-25] MEDS ORDERED: LOPERAMIDE 2 MG CAP PO PRN (14:15)
[2019-02-25] MEDS: LACTOBACILLUS ACIDOPHILUS CAP (BACID) PO SCH (14:59)
[2019-02-25 17:00] VITALS: BP 111/70
[2019-02-25 22:00] VITALS: BP 138/82
[2019-02-25] MEDS: PRAVASTATIN 20 MG TAB PO SCH (22:15)
[2019-02-25] MEDS: GABAPENTIN 300 MG CAP PO SCH (22:15)
[2019-02-25] MEDS: FERROUS SULFATE 325MG TAB PO SCH (22:15)
[2019-02-25] MEDS: zolPIDEM TARTRATE 5 MG TAB PO SCH (22:16)
[2019-02-26] MEDS ORDERED: HumaLOG INSULIN (NovoLOG) PER UNIT SC ONE (00:45)
[2019-02-26] MEDS: PIPERACILLIN/TAZOBACTAM SOD 3.375 GM in D5W MINI-BAG PLUS 50 ML IV SCH ×2 (04:01→09:06)
[2019-02-26 05:29] LABS: BASO # 0.1 10^3/uL (0.0-0.2); BASO % 0.9 % (0.0-1.0); EOS # 0.3 10^3/uL (0.0-0.50); EOS % 4.4 % (0.0-3.0); HEMATOCRIT 30.1 % (42.0-52.0); HEMOGLOBIN 9.9 g/dl (13.5-17.5); LYMPH # 2.6 10^3/uL (1.5-4.5); LYMPH % 39.4 % (24.0-44.0); MEAN CORPUSCULAR HEMOGLOBIN 29.9 pg (27.0-33.0); MEAN CORPUSCULAR HGB CONC 32.9 g/dl (32.0-36.5); MEAN CORPUSCULAR VOLUME 90.9 fl (80.0-96.0); MONO # 0.4 10^3/uL (0.0-0.8); MONO % 6.1 % (0.0-5.0); NEUTROPHILS # 3.2 10^3/uL (1.8-7.7); NEUTROPHILS % 48.6 % (36.0-66.0); PLATELET COUNT, AUTOMATED 322 10^3/uL (150-450); RED BLOOD COUNT 3.31 10^6/uL (4.30-6.10); WHITE BLOOD COUNT 6.5 10^3/uL (4.0-10.0)
[2019-02-26 05:48] LABS: CALCIUM LEVEL 9.6 MG/DL (8.5-10.1); CREATININE FOR GFR 1.69 MG/DL (0.70-1.30); GLOMERULAR FILTRATION RATE 46.3 (>60); MAGNESIUM LEVEL 2.2 MG/DL (1.8-2.4); POTASSIUM SERUM 4.3 MEQ/L (3.5-5.1)
[2019-02-26 06:00] VITALS: BP 140/63
[2019-02-26] MEDS: VANCOMYCIN HCL 1,000 MG, VIAL MATE ADAPTER 1 EACH in D5W 250 ML IV SCH (06:19)
[2019-02-26] MEDS: HEPARIN SOD (PORCINE) 5000 UNITS/ML VIAL SC SCH (06:19)
[2019-02-26] MEDS: buPROPion **XL** TABLET 150MG (WELLBUTRIN XL) PO SCH (08:22)
[2019-02-26] MEDS: GENVOYA PO SCH (08:22)
[2019-02-26] MEDS: HumaLOG INSULIN (NovoLOG) PER UNIT SC SCH ×2 (08:22→12:06)
[2019-02-26 08:23] VITALS: BP 140/63
[2019-02-26] MEDS: LOSARTAN 50 MG TAB PO SCH (08:23)
[2019-02-26] MEDS: LACTOBACILLUS ACIDOPHILUS CAP (BACID) PO SCH (08:23)
[2019-02-26] MEDS: DOCUSATE SODIUM 100 MG CAP PO SCH (08:23)
[2019-02-26] MEDS: LEVEMIR (INSULIN DETEMIR) 1 UNITS/0.01ML SC SCH (08:23)
[2019-02-26] MEDS: PANTOPRAZOLE 40MG TAB (PROTONIX) PO SCH (08:23)
[2019-02-26] MEDS: MULTIVITAMINS/MINERALS THERAP 1 TAB PO SCH (08:23)
[2019-02-26] MEDS ORDERED: DOXYCYCLINE HYCLATE 100 MG TAB PO SCH (09:00)
[2019-02-26] MEDS ORDERED: RISATAB3 PO (12:27)
[2019-02-26] MEDS ORDERED: DOXY100T PO (12:27)
--- NOTE | 2019-02-26 16:25 | DS.PDOC ---
Discharge Summary General Date of Admission Feb 23, 2019 at 15:39 Date of Discharge Feb 23, 2019 Primary Care Physician: Gene Bunch MD [facility] Attending Physician: AKASH CABRALES MD Specialist/Consultants Involve: Yuriy Fam Discharge Summary PROCEDURES PERFORMED DURING STAY: Incision and drainage of left foot abscess. ADMITTING DIAGNOSES: 1. Diabetic left foot cellulitis. 2. Osteomyelitis. 3. HIV. 4. Diabetes mellitus. 5. Hypertension. 6. Depression DISCHARGE DIAGNOSES: 1. Diabetic left foot abscess 2. Osteomyelitis. 3. HIV. 4. Diabetes mellitus. 5. Hypertension. 6. Depression COMPLICATIONS/CHIEF COMPLAINT: Fever;Hyperglycemia D/T Dm Type 1;Osteomyelitis. HISTORY OF PRESENT ILLNESS: Patient presented with fevers over the course of 2 days and worsening swelling of the left foot. He had a history of an abscess on the plantar surface of his left foot which was currently being treated by wound care. He also had a history of osteomyelitis in the left foot which was treated back in July. HOSPITAL COURSE: The patient was admitted and put on broad-spectrum antibiotics for osteomyelitis coverage including Zosyn and vancomycin. He was also given Tylenol for the fevers which did resolve after the first day. Podiatry was consulted and he was seen by Dr. Fam covering for Dr. Queen. Dr. Fam did perform an incision and drainage and took a biopsy of the bone to culture for osteomyelitis. The patient's blood cultures came back negative. The patient's wound culture and bone culture both came back positive for methicillin sensitive Staphylococcus aureus. Based on the culture and sensitivity results, he was switched to a 6 week course of doxycycline for treatment of his osteomyelitis. During his admission. He also had 6 episodes of diarrhea during 1 day. He was tested for Clostridium difficile which was negative. He was started on a probiotic which he will continue as long as he is on antibiotics. He also continued to have hyperglycemia which was controlled with sliding scale insulin while he was in hospital. He was deemed stable and was discharged home with services. DISCHARGE MEDICATIONS: Please see below. ALLERGIES: Please see below. PHYSICAL EXAMINATION ON DISCHARGE: VITAL SIGNS: Please see below. GENERAL: Alert, comfortable, pleasant, no acute distress HEENT: PERRLA. Conjunctiva clear NECK: Supple, no JVD. No masses CARDIOVASCULAR EXAMINATION: Regular rate and rhythm. Normal S1 and S2. No murmurs, rubs or gallops RESPIRATORY EXAMINATION: Lungs clear to auscultation bilaterally. No wheezing, rhonchi or rales ABDOMINAL EXAMINATION: Soft, nontender, nondistended. Bowel sounds present, no masses or hepatosplenomegaly palpated EXTREMITIES: Pulses 2+/4 in the radial and posterior tibial arteries, no edema. Left foot is wrapped in a sterile dressing SKIN: Mild erythema around the site of the abscess on the plantar surface of the left foot, no drainage present, no swelling or warmth NEUROLOGICAL EXAMINATION: Alert and oriented 3. Strength 5/5 in all 4 extremities. Cranial nerves III - XII grossly intact PSYCHIATRIC EXAMINATION: Mood and affect normal LABORATORY DATA: Please see below. IMAGING: PROGNOSIS: Good ACTIVITY: As tolerated. DIET: As tolerated DISPOSITION: 01 Home, Self-Care. DISCHARGE INSTRUCTIONS: 1. Complete full 6 week course of doxycycline 100 mg twice daily. 2. Please take probiotic during the 6 week course of antibiotics. 3. Follow up with Dr. Queen in podiatry in 14 days. 4. Follow-up with your PCP in 7-10 days. 5. Continue with wound care ITEMS TO FOLLOWUP ON ON OUTPATIENT: 1. Osteomyelitis. 2. Left foot abscess. 3., Poorly controlled diabetes mellitus. DISCHARGE CONDITION: Stable TIME SPENT ON DISCHARGE: Greater than 35 minutes. Vital Signs/I&Os Vital Signs Date Time Temp Pulse Resp B/P (MAP) Pulse Ox O2 Delivery O2 Flow Rate FiO2 02/26/19 08:23 140/63 02/26/19 06:00 97.0 62 16 99 02/23/19 08:12 Room Air I&O- Last 24 Hours up to 6 AM 02/26/19 05:59 Intake Total 1230 ml Output Total 0 ml Balance 1230 ml Laboratory Data Labs 24H Laboratory Tests 2 02/25/19 16:26: Bedside Glucose (Misc Panel) 253H 02/25/19 21:27: Bedside Glucose (Misc Panel) 297H 02/26/19 00:37: Bedside Glucose (Misc Panel) 317H 02/26/19 04:56: Immature Granulocyte % (Auto) 0.6, White Blood Count 6.5, Red Blood Count 3.31L, Hemoglobin 9.9L, Hematocrit 30.1L, Mean Corpuscular Volume 90.9, Mean Corpuscular Hemoglobin 29.9, Mean Corpuscular Hemoglobin Concent 32.9, Red Cell Distribution Width 11.3L, Platelet Count 322, Neutrophils (%) (Auto) 48.6, Lymphocytes (%) (Auto) 39.4, Monocytes (%) (Auto) 6.1H, Eosinophils (%) (Auto) 4.4H, Basophils (%) (Auto) 0.9, Neutrophils # (Auto) 3.2, Lymphocytes # (Auto) 2.6, Monocytes # (Auto) 0.4, Eosinophils # (Auto) 0.3, Basophils # (Auto) 0.1, Nucleated Red Blood Cells % (auto) 0.0, Anion Gap 5L, Glomerular Filtration Rate 46.3L, Blood Urea Nitrogen 28#H, Creatinine 1.69H, Sodium Level 138, Potassium Level 4.3, Chloride Level 105, Carbon Dioxide Level 28, Calcium Level 9.6, Magnesium Level 2.2 02/26/19 11:51: Bedside Glucose (Misc Panel) 276H CBC/BMP Laboratory Tests 02/26/19 04:56 Red Blood Count 3.31 L, Mean Corpuscular Volume 90.9, Mean Corpuscular Hemoglobin 29.9, Mean Corpuscular Hemoglobin Concent 32.9, Red Cell Distribution Width 11.3 L, Neutrophils (%) (Auto) 48.6, Lymphocytes (%) (Auto) 39.4, Monocytes (%) (Auto) 6.1 H, Eosinophils (%) (Auto) 4.4 H, Basophils (%) (Auto) 0.9, Neutrophils # (Auto) 3.2, Lymphocytes # (Auto) 2.6, Monocytes # (Auto) 0.4, Eosinophils # (Auto) 0.3, Basophils # (Auto) 0.1, Calcium Level 9.6 FSBS Laboratory Tests Test 02/25/19 16:26 02/25/19 21:27 02/26/19 00:37 02/26/19 11:51 Range/Units Bedside Glucose (Misc Panel) 253 297 317 276 70-105 MG/DL Microbiology Microbiology 02/22/19 Blood Culture - Preliminary, Resulted No Growth after 72 hours. All specime... 02/22/19 Blood Culture - Preliminary, Resulted No Growth after 72 hours. All specime... 02/23/19 Gram Stain - Final, Complete 02/23/19 Wound Culture - Final, Complete Staphylococcus Aureus 02/23/19 Anaerobic Culture - Final, Complete 02/23/19 Surgical Biopsy Culture - Final, Complete Staphylococcus Aureus 02/23/19 Anaerobic Culture - Final, Complete Discharge Medications Scheduled Bifidobacterium Infantis (Align) 4 Mg Cap, 4 MG PO DAILY, (Reported) Bupropion HCl (Wellbutrin Xl) 300 Mg Tab, 300 MG PO DAILY, (Reported) Doxycycline Hyclate (Doxycycline Hyclate) 100 Mg Tablet, 100 MG PO BID Take 1 TAB twice a day for 42 days Doxycycline Monohydrate (Doxycycline Monohydrate) 100 Mg Tablet, 100 MG PO BID, (Reported) Elviteg/Cob/Emtri/Tenof Alafen (Genvoya Tablet) 1 Tab Tab, 1 TAB PO DAILY, (Reported) Ferrous Sulfate (Iron) 325 Mg Tab, 325 MG PO QHS, (Reported) Gabapentin (Neurontin) 600 Mg Tab, 600 MG PO QHS, (Reported) Insulin Glargine,Hum.rec.anlog (Basaglar Kwikpen U-100) 100 Unit/1 Ml Insuln.pen, 30 UNIT SC QAM, (Reported) Insulin Lispro (Admelog) 100 Unit/1 Ml Vial, 1 UNIT SC ACHS, (Reported) SLIDING SCALE L.acidoph/L.bulg/B.bif/S.therm (Idania-Bid Caplet) 1 Each Tablet, 1 EA PO DAILY Take 1 daily for 42 days Losartan Potassium (Losartan Potassium) 50 Mg Tab, 50 MG PO DAILY, (Reported) Multivit-Min/Iron/Folic/Vit K1 (Centrum Chewables Adults Tab) 1 Chw Chw, 1 TAB PO DAILY, (Reported) Omeprazole (Omeprazole) 40 Mg Cap, 40 MG PO DAILY, (Reported) Pravastatin Sodium (Pravastatin Sodium) 40 Mg Tablet, 40 MG PO QHS, (Reported) Zolpidem Tartrate (Zolpidem Tartrate) 5 Mg Tablet, 5 MG PO QHS, (Reported) Allergies Coded Allergies: lisinopril (Verified Allergy, Intermediate, facial swelling, 02/22/19) SARAH FORBES PGY-1 Feb 26, 2019 16:25
== END 2019-02-26 13:58 | disposition home or self-care (01) | DRG 314 ==
LOC: M ED 18:54 → M ED INP 18:55 → M MS4PR 02-23 08:19 → OBSVTOIN 02-23 15:39 → M MSPAV 02-25 16:58
PROVIDERS: ADMIT Internal Medicine; ATTEND Internal Medicine
PROC: 0QBP0ZZ Excision of Left Metatarsal, Open Approach (ICD-10-PCS; 2019-02-23)
PROC: 0YBN0ZZ Excision of Left Foot, Open Approach (ICD-10-PCS; principal; 2019-02-23 16:30)
DX: E10.622 Type 1 diabetes mellitus with other skin ulcer (principal); E10.621 Type 1 diabetes mellitus with foot ulcer; E10.42 Type 1 diabetes mellitus with diabetic polyneuropathy; M86.172 Other acute osteomyelitis, left ankle and foot; E10.69 Type 1 diabetes mellitus with other specified complication; L97.526 Non-pressure chronic ulcer of other part of left foot with bone involvement without evidence of necrosis; L03.116 Cellulitis of left lower limb; E10.65 Type 1 diabetes mellitus with hyperglycemia; N18.3 Chronic kidney disease, stage 3 (moderate); I12.9 Hypertensive chronic kidney disease with stage 1 through stage 4 chronic kidney disease, or unspecified chronic kidney disease; F32.9 Major depressive disorder, single episode, unspecified; B95.61 Methicillin susceptible Staphylococcus aureus infection as the cause of diseases classified elsewhere; R19.7 Diarrhea, unspecified; Z79.899 Other long term (current) drug therapy; Z79.4 Long term (current) use of insulin; Z88.8 Allergy status to other drugs, medicaments and biological substances; M90.80 Osteopathy in diseases classified elsewhere, unspecified site; D50.9 Iron deficiency anemia, unspecified; Z21 Asymptomatic human immunodeficiency virus [HIV] infection status

== ENCOUNTER → 2019-04-15 | Outpatient (REF) | payer OTHER ==
[~2019-04-15] MED LIST changes: +ADME100I SC; +BASA100I SC; +DOXY-350 PO; +DOXY100T PO; +DOXY100T16 PO; +PRAV40TA2 PO; +ZOLP5TAB PO
[2019-04-15 20:37] LABS: APPEARANCE, URINE CLEAR (CLEAR); BACTERIA, URINE AUTO NEGATIVE (NEGATIVE); BILIRUBIN, URINE AUTO NEGATIVE (NEGATIVE); BLOOD, URINE BLOOD NEGATIVE (NEGATIVE); COLOR, URINE STRAW (YELLOW); GLUCOSE, URINE (UA) AUTO 3+ mg/dL (NEGATIVE); KETONE, URINE AUTO NEGATIVE (NEGATIVE); LEUKOCYTE ESTERASE, URINE AUTO NEGATIVE (NEGATIVE); NITRITE, URINE AUTO NEGATIVE (NEGATIVE); PROTEIN, URINE AUTO NEGATIVE (NEGATIVE); RBC, URINE AUTO 2 /HPF (0-3); SPECIFIC GRAVITY URINE AUTO 1.024 (1.002-1.035); SQUAMOUS EPITHELIAL CELL UR AU 0 /HPF (0-6); UROBILINOGEN, URINE AUTO 0.2 mg/dL (0.0-2.0); WBC, URINE AUTO 0 /HPF (0-3)
[2019-04-15 20:43] LABS: ALBUMIN 4.4 GM/DL (3.2-5.2); BILIRUBIN,TOTAL 0.4 MG/DL (0.2-1.0); CALCIUM LEVEL 9.7 MG/DL (8.5-10.1); CHOLESTEROL RISK RATIO 3.431 (<5); CREATININE FOR GFR 2.17 MG/DL (0.70-1.30); GLOMERULAR FILTRATION RATE 34.6 (>60); POTASSIUM SERUM 4.8 MEQ/L (3.5-5.1); TOTAL PROTEIN 8.5 GM/DL (6.4-8.2)
[2019-04-15 20:51] LABS: HEMOGLOBIN A1c 9.3 %
[2019-04-15 21:07] LABS: CREATININE, URINE 29.4 MG/DL; MALB URINE SIEMENS 63.3 MG/L; MAU/CREAT RATIO 215.3 MCG/MG (0.0-30.0)
[2019-04-21 00:06] LABS: %CD4 Pos Lymphs 43.3 % (30.8-58.5); ABS Eosinophils 0.1 x10E3/uL (0.0-0.4); ABS Lymphs 1.5 x10E3/uL (0.7-3.1); ABS Monocytes 0.3 x10E3/uL (0.1-0.9); ABS Neutophils 4.7 x10E3/uL (1.4-7.0); Abs CD4 Helper 650 /uL (359-1519); Abs CD8 Suppres 660 /uL (109-897); CD4/CD8 Ratio 0.98 (0.92-3.72); Eosinophils 1 % (Not Estab.); HCT 41.2 % (37.5-51.0); HGB 13.3 g/dL (13.0-17.7); HIV-1 RNA PCR QUANT 2 LC550285 <20 copies/mL (.); Immature Grans 0 % (Not Estab.); Lymphocytes 23 % (Not Estab.); MCH 30.7 pg (26.6-33.0); MCHC 32.3 g/dL (31.5-35.7); MCV 95 fL (79-97); Monocytes 4 % (Not Estab.); Neutrophils 71 % (Not Estab.); Platelets 296 x10E3/uL (150-450); RBC 4.33 x10E6/uL (4.14-5.80); RDW 13.6 % (12.3-15.4); WBC 6.6 x10E3/uL (3.4-10.8)
== END ==
LOC: M SFHCPLAZ 12:58
PROVIDERS: ATTEND Internal Medicine Infectious Disease
DX: B20 Human immunodeficiency virus [HIV] disease (principal); E11.621 Type 2 diabetes mellitus with foot ulcer

== ENCOUNTER → 2019-07-12 | Outpatient (CLI) | payer OTHER ==
[~2019-07-12] MED LIST changes: -DOXY100T16 PO; +DOXY100T27 PO
[2019-07-12 18:40] LABS: ALBUMIN 3.7 GM/DL (3.2-5.2); BILIRUBIN,TOTAL 0.3 MG/DL (0.2-1.0); CREATININE FOR GFR 1.54 MG/DL (0.70-1.30); GLOMERULAR FILTRATION RATE 51.4 (>60); POTASSIUM SERUM 4.5 MEQ/L (3.5-5.1); TOTAL PROTEIN 7.6 GM/DL (6.4-8.2)
== END ==
LOC: M PLALAB 12:17
PROVIDERS: ATTEND Internal Medicine Infectious Disease
DX: B20 Human immunodeficiency virus [HIV] disease (principal)

== ENCOUNTER 2019-12-22 07:54 | Emergency (ER) | payer OTHER ==
[~2019-12-22] VITALS: Ht 177.8 cm; Wt 70.3 kg
[~2019-12-22 07:54] MED LIST changes: +AMLO5TAB6 PO; +AMMO12CR7 TOP; +CYCL-707 PO; +DOLU1TAB PO; +LEVA1TAB2 PO; +VITMTA PO
[2019-12-22] MEDS ORDERED: AMBI5TAB (08:02)
[2019-12-22] MEDS ORDERED: PSEUDOEPHEDRINE 30 MG TAB PO STA (08:07)
[2019-12-22 11:21] VITALS: BP 128/62
== END 2019-12-22 11:22 | disposition home or self-care (01) ==
LOC: M ED 07:54
DX: N48.30 Priapism, unspecified (principal); Z88.8 Allergy status to other drugs, medicaments and biological substances; Z79.899 Other long term (current) drug therapy

== ENCOUNTER → 2019-12-28 | Outpatient (REF) | payer OTHER ==
[~2019-12-28] MED LIST changes: +AMBI5TAB
[2019-12-28 16:13] LABS: APPEARANCE, URINE CLEAR (CLEAR); BACTERIA, URINE AUTO NEGATIVE (NEGATIVE); BASO # 0.1 10^3/uL (0.0-0.2); BASO % 0.8 % (0.0-1.0); BILIRUBIN, URINE AUTO NEGATIVE (NEGATIVE); BLOOD, URINE BLOOD NEGATIVE (NEGATIVE); COLOR, URINE YELLOW (YELLOW); EOS # 0.2 10^3/uL (0.0-0.5); EOS % 2.9 % (0.0-3.0); GLUCOSE, URINE (UA) AUTO 3+ mg/dL (NEGATIVE); HEMATOCRIT 37.6 % (42.0-52.0); HEMOGLOBIN 12.6 g/dl (13.5-17.5); KETONE, URINE AUTO NEGATIVE (NEGATIVE); LEUKOCYTE ESTERASE, URINE AUTO NEGATIVE (NEGATIVE); LYMPH # 1.3 10^3/uL (1.5-5.0); LYMPH % 20.1 % (24.0-44.0); MEAN CORPUSCULAR HEMOGLOBIN 31.6 pg (27.0-33.0); MEAN CORPUSCULAR HGB CONC 33.5 g/dl (32.0-36.5); MEAN CORPUSCULAR VOLUME 94.2 fl (80.0-96.0); MONO # 0.3 10^3/uL (0.0-0.8); MONO % 5.3 % (0.0-5.0); NEUTROPHILS # 4.4 10^3/uL (1.5-8.5); NEUTROPHILS % 70.4 % (36.0-66.0); NITRITE, URINE AUTO NEGATIVE (NEGATIVE); PLATELET COUNT, AUTOMATED 274 10^3/uL (150-450); PROTEIN, URINE AUTO NEGATIVE (NEGATIVE); RBC, URINE AUTO 0 /HPF (0-3); RED BLOOD COUNT 3.99 10^6/uL (4.30-6.10); SPECIFIC GRAVITY URINE AUTO 1.023 (1.002-1.035); SQUAMOUS EPITHELIAL CELL UR AU 0 /HPF (0-6); UROBILINOGEN, URINE AUTO 0.2 mg/dL (0.0-2.0); WBC, URINE AUTO 0 /HPF (0-3); WHITE BLOOD COUNT 6.2 10^3/uL (4.0-10.0)
[2019-12-28 16:39] LABS: HEMOGLOBIN A1c 10.4 %
[2019-12-28 16:54] LABS: CREATININE, URINE 56.5 MG/DL; MAU/CREAT RATIO 238.9 MCG/MG (0.0-30.0)
[2019-12-28 17:41] LABS: ALBUMIN 3.7 GM/DL (3.2-5.2); BILIRUBIN,TOTAL 0.3 MG/DL (0.2-1.0); CALCIUM LEVEL 8.8 MG/DL (8.5-10.1); CHOLESTEROL RISK RATIO 3.224 (<5); CREATININE FOR GFR 1.79 MG/DL (0.70-1.30); GLOMERULAR FILTRATION RATE 43.2 (>60); POTASSIUM SERUM 5.9 MEQ/L (3.5-5.1); TOTAL PROTEIN 7.6 GM/DL (6.4-8.2)
[2019-12-31 12:14] LABS: % CD8 Pos Lymph 42.9 % (12.0-35.5); %CD4 Pos Lymphs 42.5 % (30.8-58.5); ABS Basophils 0.1 x10E3/uL (0.0-0.2); ABS Eosinophils 0.2 x10E3/uL (0.0-0.4); ABS Lymphs 1.3 x10E3/uL (0.7-3.1); ABS Monocytes 0.3 x10E3/uL (0.1-0.9); ABS Neutophils 4.6 x10E3/uL (1.4-7.0); Abs CD4 Helper 553 /uL (359-1519); Abs CD8 Suppres 558 /uL (109-897); CD4/CD8 Ratio 0.99 (0.92-3.72); Eosinophils 2 % (Not Estab.); HCT 39.7 % (37.5-51.0); HGB 12.7 g/dL (13.0-17.7); HIV-1 RNA PCR QUANT 2 LC550285 <20 copies/mL (.); Immature Grans 0 % (Not Estab.); Lymphocytes 20 % (Not Estab.); MCH 31.4 pg (26.6-33.0); MCV 98 fL (79-97); Monocytes 5 % (Not Estab.); Neutrophils 72 % (Not Estab.); Platelets 272 x10E3/uL (150-450); RBC 4.04 x10E6/uL (4.14-5.80); RDW 11.3 % (11.6-15.4); WBC 6.5 x10E3/uL (3.4-10.8)
== END ==
LOC: M SFHCPLAZ 13:57
PROVIDERS: ATTEND Internal Medicine Infectious Disease
DX: B20 Human immunodeficiency virus [HIV] disease (principal); E11.621 Type 2 diabetes mellitus with foot ulcer

== ENCOUNTER → 2020-01-04 | Outpatient (REF) | payer OTHER | LOC: M PLALAB 10:28 | PROVIDERS: ATTEND Internal Medicine Infectious Disease | DX: M86.171 Other acute osteomyelitis, right ankle and foot (principal) ==

== ENCOUNTER → 2020-12-05 | Outpatient (REF) | payer OTHER ==
[~2020-12-05] MED LIST changes: +AMLO1TAB24 PO; -AMLO5TAB6 PO
[2020-12-05 18:19] LABS: HEMOGLOBIN A1c 11.2 %
[2020-12-05 18:39] LABS: ALBUMIN 3.6 GM/DL (3.2-5.2); BILIRUBIN,TOTAL 0.3 MG/DL (0.2-1.0); CALCIUM LEVEL 9.1 MG/DL (8.5-10.1); CHOLESTEROL RISK RATIO 4.16 (<5); CREATININE FOR GFR 1.82 MG/DL (0.70-1.30); GLOMERULAR FILTRATION RATE 42.2 (>56); POTASSIUM SERUM 4.6 MEQ/L (3.5-5.1); TOTAL PROTEIN 7.4 GM/DL (6.4-8.2)
[2020-12-07 17:07] LABS: % CD8 Pos Lymph 41.1 % (12.0-35.5); %CD4 Pos Lymphs 46.4 % (30.8-58.5); ABS Basophils 0.1 x10E3/uL (0.0-0.2); ABS Eosinophils 0.1 x10E3/uL (0.0-0.4); ABS Lymphs 1.4 x10E3/uL (0.7-3.1); ABS Monocytes 0.4 x10E3/uL (0.1-0.9); ABS Neutophils 2.6 x10E3/uL (1.4-7.0); Abs CD4 Helper 650 /uL (359-1519); Abs CD8 Suppres 575 /uL (109-897); CD4/CD8 Ratio 1.13 (0.92-3.72); Eosinophils 2 % (Not Estab.); HGB 12.6 g/dL (13.0-17.7); HIV-1 RNA PCR QUANT 2 LC550285 <20 copies/mL (.); Immature Grans 0 % (Not Estab.); Lymphocytes 31 % (Not Estab.); MCH 31.2 pg (26.6-33.0); MCHC 32.3 g/dL (31.5-35.7); MCV 97 fL (79-97); Monocytes 9 % (Not Estab.); Neutrophils 57 % (Not Estab.); Platelets 314 x10E3/uL (150-450); RBC 4.04 x10E6/uL (4.14-5.80); RDW 11.7 % (11.6-15.4); WBC 4.6 x10E3/uL (3.4-10.8)
== END ==
LOC: M SFHCPLAZ 13:15
PROVIDERS: ATTEND Internal Medicine Infectious Disease
DX: B20 Human immunodeficiency virus [HIV] disease (principal); E11.621 Type 2 diabetes mellitus with foot ulcer

== ENCOUNTER → 2021-02-13 | Outpatient (CLI) | payer MEDICARE, MEDICAID ==
[2021-02-13 14:08] LABS: HEMATOCRIT 35.6 % (42.0-52.0); HEMOGLOBIN 11.5 g/dl (13.5-17.5); MEAN CORPUSCULAR HEMOGLOBIN 30.6 pg (27.0-33.0); MEAN CORPUSCULAR HGB CONC 32.3 g/dl (32.0-36.5); MEAN CORPUSCULAR VOLUME 94.7 fl (80.0-96.0); PLATELET COUNT, AUTOMATED 261 10^3/uL (150-450); RED BLOOD COUNT 3.76 10^6/uL (4.30-6.10); WHITE BLOOD COUNT 4.7 10^3/uL (4.0-10.0)
[2021-02-13 14:51] LABS: THYROID STIMULATING HORMONE 0.514 uIU/ML (0.358-3.740)
== END ==
LOC: M PLALAB 10:04
PROVIDERS: ATTEND Family Medicine
DX: R53.83 Other fatigue (principal); Z12.5 Encounter for screening for malignant neoplasm of prostate
CPT/HCPCS: 36415; 82728; 84443; 85027; G0103; G0463

== ENCOUNTER → 2021-06-05 | Outpatient (CLI) | payer MEDICARE, OTHER ==
[2021-06-05 18:14] LABS: ALBUMIN 3.6 GM/DL (3.2-5.2); BILIRUBIN,TOTAL 0.3 MG/DL (0.2-1.0); CALCIUM LEVEL 9.2 MG/DL (8.5-10.1); CHOLESTEROL RISK RATIO 2.349 (<5); CREATININE FOR GFR 1.55 MG/DL (0.70-1.30); GLOMERULAR FILTRATION RATE 50.6 (>56); POTASSIUM SERUM 4.1 MEQ/L (3.5-5.1); TOTAL PROTEIN 7.8 GM/DL (6.4-8.2)
[2021-06-05 18:23] LABS: BASO # 0.1 10^3/uL (0.0-0.2); BASO % 1.2 % (0.0-1.0); EOS # 0.3 10^3/uL (0.0-0.5); EOS % 3.6 % (0.0-3.0); HEMATOCRIT 35.2 % (42.0-52.0); HEMOGLOBIN 11.7 g/dl (13.5-17.5); LYMPH # 2.8 10^3/uL (1.5-5.0); LYMPH % 37.2 % (24.0-44.0); MEAN CORPUSCULAR HEMOGLOBIN 30.5 pg (27.0-33.0); MEAN CORPUSCULAR HGB CONC 33.2 g/dl (32.0-36.5); MEAN CORPUSCULAR VOLUME 91.7 fl (80.0-96.0); MONO # 0.5 10^3/uL (0.0-0.8); MONO % 6.6 % (2.0-8.0); NEUTROPHILS # 3.8 10^3/uL (1.5-8.5); NEUTROPHILS % 51.1 % (36.0-66.0); PLATELET COUNT, AUTOMATED 286 10^3/uL (150-450); RED BLOOD COUNT 3.84 10^6/uL (4.30-6.10); WHITE BLOOD COUNT 7.4 10^3/uL (4.0-10.0)
[2021-06-05 18:51] LABS: HEMOGLOBIN A1c 9.4 %
[2021-06-08 03:07] LABS: % CD8 Pos Lymph 46.6 % (12.0-35.5); %CD4 Pos Lymphs 42.9 % (30.8-58.5); ABS Basophils 0.1 x10E3/uL (0.0-0.2); ABS Eosinophils 0.2 x10E3/uL (0.0-0.4); ABS Lymphs 2.9 x10E3/uL (0.7-3.1); ABS Monocytes 0.6 x10E3/uL (0.1-0.9); ABS Neutophils 3.8 x10E3/uL (1.4-7.0); Abs CD4 Helper 1244 /uL (359-1519); Abs CD8 Suppres 1351 /uL (109-897); CD4/CD8 Ratio 0.92 (0.92-3.72); Eosinophils 3 % (Not Estab.); HCT 33.8 % (37.5-51.0); HGB 11.5 g/dL (13.0-17.7); HIV-1 RNA PCR QUANT 2 LC550285 <20 copies/mL (.); Immature Grans 0 % (Not Estab.); Lymphocytes 38 % (Not Estab.); MCH 31.2 pg (26.6-33.0); MCV 92 fL (79-97); Monocytes 7 % (Not Estab.); Neutrophils 51 % (Not Estab.); Platelets 279 x10E3/uL (150-450); RBC 3.69 x10E6/uL (4.14-5.80); RDW 15.8 % (11.6-15.4); WBC 7.7 x10E3/uL (3.4-10.8)
== END ==
LOC: M PLALAB 13:17
PROVIDERS: ATTEND Internal Medicine Infectious Disease
DX: B20 Human immunodeficiency virus [HIV] disease (principal); E10.65 Type 1 diabetes mellitus with hyperglycemia; I25.10 Atherosclerotic heart disease of native coronary artery without angina pectoris
CPT/HCPCS: 36415; 80053; 80061; 83036; 85025; 86360; 87536; G0463

== ENCOUNTER → 2021-10-18 | Outpatient (CLI) | payer MEDICARE, OTHER ==
[~2021-10-18] MED LIST changes: +LOSA50TA28 PO; -LOSA50TA88 PO; -OMEP-221 PO; +OMEP40CA5 PO
== END ==
LOC: M PLAIMG 14:14 → M PLALAB 14:14
PROVIDERS: ATTEND Family Medicine
DX: S62.161A Displaced fracture of pisiform, right wrist, initial encounter for closed fracture (principal); W19.XXXA Unspecified fall, initial encounter; Y92.9 Unspecified place or not applicable; Y99.9 Unspecified external cause status

== ENCOUNTER → 2021-11-06 | Outpatient (CLI) | payer MEDICARE ==
[~2021-11-06] MED LIST changes: +METHACHOLINE KIT (J7674) INH ONE
== END ==
LOC: M CARPUL 13:39
PROVIDERS: ATTEND Internal Medicine Pulmonary Disease
DX: R06.02 Shortness of breath (principal)
CPT/HCPCS: 94070; 95070; J7674

== ENCOUNTER → 2021-12-04 | Outpatient (CLI) | payer MEDICARE, MEDICAID ==
[~2021-12-04] MED LIST changes: -METHACHOLINE KIT (J7674) INH ONE
[2021-12-04 15:37] LABS: HEMOGLOBIN A1c 10.3 %
== END ==
LOC: M PLALAB 12:26
PROVIDERS: ATTEND Family Medicine
DX: E10.65 Type 1 diabetes mellitus with hyperglycemia (principal); B20 Human immunodeficiency virus [HIV] disease

== ENCOUNTER → 2021-12-04 | Outpatient (CLI) | payer MEDICARE, MEDICAID ==
[2021-12-04 15:54] LABS: ALBUMIN 3.9 GM/DL (3.2-5.2); BILIRUBIN,TOTAL 0.3 MG/DL (0.2-1.0); CALCIUM LEVEL 9.8 MG/DL (8.5-10.1); CREATININE FOR GFR 1.89 MG/DL (0.70-1.30); GLOMERULAR FILTRATION RATE 40.2 (>56); TOTAL PROTEIN 7.9 GM/DL (6.4-8.2)
[2021-12-07 02:08] LABS: % CD8 Pos Lymph 42.5 % (12.0-35.5); %CD4 Pos Lymphs 43.2 % (30.8-58.5); ABS Basophils 0.1 x10E3/uL (0.0-0.2); ABS Eosinophils 0.2 x10E3/uL (0.0-0.4); ABS Lymphs 2.5 x10E3/uL (0.7-3.1); ABS Monocytes 0.5 x10E3/uL (0.1-0.9); ABS Neutophils 2.5 x10E3/uL (1.4-7.0); Abs CD4 Helper 1080 /uL (359-1519); Abs CD8 Suppres 1063 /uL (109-897); CD4/CD8 Ratio 1.02 (0.92-3.72); Eosinophils 3 % (Not Estab.); HCT 37.8 % (37.5-51.0); HGB 12.6 g/dL (13.0-17.7); HIV-1 RNA PCR QUANT 2 LC550285 <20 copies/mL (.); Immature Grans 0 % (Not Estab.); Lymphocytes 44 % (Not Estab.); MCH 31.7 pg (26.6-33.0); MCHC 33.3 g/dL (31.5-35.7); MCV 95 fL (79-97); Monocytes 8 % (Not Estab.); Neutrophils 44 % (Not Estab.); Platelets 313 x10E3/uL (150-450); RBC 3.97 x10E6/uL (4.14-5.80); RDW 12.1 % (11.6-15.4); WBC 5.6 x10E3/uL (3.4-10.8)
== END ==
LOC: M PLALAB 12:24
PROVIDERS: ATTEND Internal Medicine Infectious Disease
DX: B20 Human immunodeficiency virus [HIV] disease (principal)

== ENCOUNTER → 2022-03-04 | Outpatient (CLI) | payer MEDICARE, MEDICAID ==
[2022-03-04 15:27] LABS: HEMATOCRIT 40.7 % (42.0-52.0); HEMOGLOBIN 13.3 g/dl (13.5-17.5); MEAN CORPUSCULAR HEMOGLOBIN 29.9 pg (27.0-33.0); MEAN CORPUSCULAR HGB CONC 32.7 g/dl (32.0-36.5); MEAN CORPUSCULAR VOLUME 91.5 fl (80.0-96.0); PLATELET COUNT, AUTOMATED 333 10^3/uL (150-450); RED BLOOD COUNT 4.45 10^6/uL (4.30-6.10)
[2022-03-04 16:56] LABS: GC DNA AMPLIFICATION NEGATIVE (NEGATIVE)
[2022-03-04 21:54] LABS: ALBUMIN 4.2 GM/DL (3.2-5.2); BILIRUBIN,TOTAL 0.3 MG/DL (0.2-1.0); C REACTIVE PROTEIN QUANTITATIV 2.17 MG/DL (0.00-0.30); CALCIUM LEVEL 10.5 MG/DL (8.5-10.1); CHOLESTEROL RISK RATIO 5.254 (<5); CREATININE FOR GFR 2.01 MG/DL (0.70-1.30); FREE T4 0.99 NG/DL (0.76-1.46); GLOMERULAR FILTRATION RATE 37.3 (>56); THYROID STIMULATING HORMONE 0.873 uIU/ML (0.358-3.740); TOTAL 25(OH) VITAMIN D 38.7 NG/ML (30.0-100.0); TOTAL PROTEIN 8.8 GM/DL (6.4-8.2)
[2022-03-04 23:47] LABS: CREATININE, URINE 95.1 MG/DL; MAU/CREAT RATIO 201.8 MCG/MG (0.0-30.0)
[2022-03-05 00:12] LABS: HEMOGLOBIN A1c 10.3 %
== END ==
LOC: M PLALAB 11:14
PROVIDERS: ATTEND Internal Medicine Hematology
DX: E10.65 Type 1 diabetes mellitus with hyperglycemia (principal); N34.2 Other urethritis

== ENCOUNTER → 2022-08-12 | Outpatient (REF) | payer MEDICARE, MEDICAID ==
[~2022-08-12] MED LIST changes: -DOXY-350 PO; +DOXY-444 PO
== END ==
LOC: M SFHCWOUN 16:53
PROVIDERS: ATTEND Physician Assistant
DX: E11.621 Type 2 diabetes mellitus with foot ulcer (principal)

== ENCOUNTER → 2022-08-19 | Outpatient (CLI) | payer MEDICAID, MEDICARE ==
[2022-08-19 16:04] LABS: APPEARANCE, URINE MANUAL CLEAR (CLEAR); COLOR, URINE MANUAL LT YELLOW (YELLOW)
[2022-08-19 16:05] LABS: GLUCOSE, URINE (UA) MANUAL 4+(1000 MG/DL) mg/dL (NEGATIVE); KETONE, URINE MANUAL NEGATIVE (NEGATIVE); PROTEIN, URINE MANUAL 2+ mg/dL (NEGATIVE); SPECIFIC GRAVITY,URINE MANUAL 1.025 (1.002-1.035)
[2022-08-19 16:06] LABS: BILIRUBIN, URINE MANUAL NEGATIVE (NEGATIVE); BLOOD URINE MANUAL POSITIVE (NEGATIVE); LEUKOCYTE ESTERASE, URINE MAN NEGATIVE (NEGATIVE); NITRITE, URINE MANUAL NEGATIVE (NEGATIVE); UROBILINOGEN, URINE MANUAL NORMAL (NORMAL)
[2022-08-19 16:25] LABS: ALBUMIN 3.6 G/DL (3.2-5.2); BILIRUBIN,TOTAL 0.3 MG/DL (0.3-1.2); CALCIUM LEVEL 9.1 MG/DL (8.5-10.1); CREATININE FOR GFR 1.41 MG/DL (0.70-1.30); GLOMERULAR FILTRATION RATE 56.2 (>56); POTASSIUM SERUM 4.2 MMOL/L (3.5-5.1); TOTAL PROTEIN 8.3 G/DL (5.7-8.2)
[2022-08-19 17:19] LABS: BACTERIA, URINE SMALL AMOUNT; HYALINE CAST, URINE NONE SEEN /lpf (0-1); SQUAMOUS EPITHELIAL CELL URINE SMALL AMOUNT /hpf (SMALL AMT); WBC, URINE 0-1 /hpf (0-3)
== END ==
LOC: M PLALAB 12:43
PROVIDERS: ATTEND Internal Medicine Infectious Disease
DX: N52.9 Male erectile dysfunction, unspecified (principal); B20 Human immunodeficiency virus [HIV] disease
CPT/HCPCS: 36415; 80053; 81000; 86360; 87536; G0103

== ENCOUNTER → 2022-10-03 | Outpatient (CLI) | payer MEDICARE, MEDICAID ==
[2022-10-05 04:09] LABS: HIV-1 RNA PCR QUANT 2 LC550285 <20 copies/mL (.)
== END ==
LOC: M PLALAB 12:03
PROVIDERS: ATTEND Internal Medicine Infectious Disease
DX: B20 Human immunodeficiency virus [HIV] disease (principal)

== ENCOUNTER → 2023-03-12 | Outpatient (REF) | payer MEDICARE, MEDICAID | LOC: M SFHCPLAZ 17:20 | PROVIDERS: ATTEND Internal Medicine Hematology | DX: N41.1 Chronic prostatitis (principal) ==

== ENCOUNTER → 2023-04-08 | Outpatient (CLI) | payer MEDICARE, MEDICAID ==
[2023-04-08 16:11] LABS: BILIRUBIN,TOTAL 0.2 MG/DL (0.3-1.2); CALCIUM LEVEL 8.5 MG/DL (8.5-10.1); CREATININE FOR GFR 1.5 MG/DL (0.70-1.30); GLOMERULAR FILTRATION RATE 52.1 (>56); POTASSIUM SERUM 5.1 MMOL/L (3.5-5.1)
[2023-04-11 16:09] LABS: %CD4 Pos Lymphs 38.6 % (30.8-58.5); ABS Eosinophils 0.2 x10E3/uL (0.0-0.4); ABS Lymphs 2.3 x10E3/uL (0.7-3.1); ABS Monocytes 0.5 x10E3/uL (0.1-0.9); ABS Neutophils 4.6 x10E3/uL (1.4-7.0); Abs CD4 Helper 888 /uL (359-1519); Abs CD8 Suppres 1104 /uL (109-897); Eosinophils 3 % (Not Estab.); HCT 30.8 % (37.5-51.0); HGB 9.9 g/dL (13.0-17.7); HIV-1 RNA PCR QUANT 2 LC550285 <20 copies/mL (.); Immature Grans 0 % (Not Estab.); Lymphocytes 30 % (Not Estab.); MCH 31.4 pg (26.6-33.0); MCHC 32.1 g/dL (31.5-35.7); MCV 98 fL (79-97); Monocytes 6 % (Not Estab.); Neutrophils 60 % (Not Estab.); Platelets 308 x10E3/uL (150-450); RBC 3.15 x10E6/uL (4.14-5.80); RDW 13.5 % (11.6-15.4); WBC 7.6 x10E3/uL (3.4-10.8)
== END ==
LOC: M PLALAB 12:46
PROVIDERS: ATTEND Internal Medicine Infectious Disease
DX: B20 Human immunodeficiency virus [HIV] disease (principal); L97.901 Non-pressure chronic ulcer of unspecified part of unspecified lower leg limited to breakdown of skin

== ENCOUNTER → 2023-08-14 | Outpatient (CLI) | payer MEDICARE, MEDICAID ==
[~2023-08-14] MED LIST changes: +BUPR300T92 PO; +INSUDET SC; +LOSA25TA13 PO; +ROSU20TA61 PO
== END ==
LOC: M PLALAB 11:04
PROVIDERS: ATTEND Internal Medicine Hematology
DX: Z01.818 Encounter for other preprocedural examination (principal)

== ENCOUNTER 2023-08-19 07:25 | Day surgery (SDC) | payer MEDICAID, MEDICARE ==
[~2023-08-19] VITALS: Ht 170.2 cm; Wt 67.1 kg
[~2023-08-19 07:25] MED LIST changes: +BSS IRR 500ML/OMIDRIA 4ML IRR BAG (OR ONLY) As Ordered ONE; +CEFUROXIME 1MG/0.1ML INTRACAMERAL INJ As Ordered ONE; +CYCLOPENTOLATE 1% OPHTH SOLN 2ML BTL OD SCH; +LIDOCAINE 1% SDV 5ML VIAL As Ordered ONE; +MULT-40 PO; +OFLOXACIN 0.3 % (OCUFLOX) OPTH SOL 5ML OD SCH; +PHENYLEPHRINE 2.5% OPHTH SOL 2ML OD SCH; +PROPARACAINE 0.5% OPHTH SOL 15ML OD ONE; +TROPICAMIDE 1% OPHTH SOLN 15ML OD SCH
[2023-08-19] MEDS ORDERED: LANTINJ4 SC (08:11)
[2023-08-19] MEDS ORDERED: INSULIN LISPRO (NovoLOG) PER UNIT SC PRN (08:15)
[2023-08-19] MEDS ORDERED: MIDAZOLAM INJ 2MG/2ML VIAL As Ordered ONE (08:26)
[2023-08-19] MEDS ORDERED: ONDANSETRON 4MG 2ML VIAL As Ordered ONE (08:52)
[2023-08-19] MEDS ORDERED: LIDOCAINE 2% 100MG/5ML SDV (FOR ANES.) As Ordered ONE (08:52)
[2023-08-19] MEDS ORDERED: propofoL 200 MG/20 ML VIAL As Ordered ONE (08:52)
[2023-08-19] MEDS ORDERED: fentaNYL 100 MCG/2 ML INJECTION As Ordered ONE (08:52)
[2023-08-19] MEDS ORDERED: NS 1,000 ML IV SCH (09:10)
[2023-08-19] MEDS ORDERED: ONDANSETRON 4MG 2ML VIAL IV PRN (10:05)
[2023-08-19 11:04] VITALS: BP 117/63; TEMP 98; O2SAT 98
== END 2023-08-19 11:48 | disposition home or self-care (01) ==
LOC: M SDC 07:25
PROVIDERS: ATTEND Ophthalmology
DX: H25.11 Age-related nuclear cataract, right eye (principal); E10.9 Type 1 diabetes mellitus without complications; Z79.4 Long term (current) use of insulin; B20 Human immunodeficiency virus [HIV] disease; N18.4 Chronic kidney disease, stage 4 (severe); F41.9 Anxiety disorder, unspecified; F32.A Depression, unspecified; K21.9 Gastro-esophageal reflux disease without esophagitis; D64.9 Anemia, unspecified; I25.10 Atherosclerotic heart disease of native coronary artery without angina pectoris; I25.2 Old myocardial infarction; Z79.82 Long term (current) use of aspirin; Z79.899 Other long term (current) drug therapy; Z88.8 Allergy status to other drugs, medicaments and biological substances
CPT/HCPCS: 66984; J0697; J1097; J1815; J2250; J2405; J3010; V2632

== ENCOUNTER → 2023-10-07 | Outpatient (CLI) | payer MEDICARE, MEDICAID ==
[~2023-10-07] MED LIST changes: -BSS IRR 500ML/OMIDRIA 4ML IRR BAG (OR ONLY) As Ordered ONE; -CEFUROXIME 1MG/0.1ML INTRACAMERAL INJ As Ordered ONE; -CYCLOPENTOLATE 1% OPHTH SOLN 2ML BTL OD SCH; -LIDOCAINE 1% SDV 5ML VIAL As Ordered ONE; -OFLOXACIN 0.3 % (OCUFLOX) OPTH SOL 5ML OD SCH; -PHENYLEPHRINE 2.5% OPHTH SOL 2ML OD SCH; -PROPARACAINE 0.5% OPHTH SOL 15ML OD ONE; -TROPICAMIDE 1% OPHTH SOLN 15ML OD SCH
[2023-10-07 16:28] LABS: PSA SCREENING 0.35 NG/ML (< 4.00)
[2023-10-07 16:32] LABS: THYROID STIMULATING HORMONE 1.843 uIU/ML (0.55-4.78)
[2023-10-07 16:56] LABS: ALBUMIN 3.8 G/DL (3.2-5.2); BILIRUBIN,TOTAL 0.4 MG/DL (0.3-1.2); CALCIUM LEVEL 9.2 MG/DL (8.5-10.1); CREATININE FOR GFR 1.75 MG/DL (0.70-1.30); GLOMERULAR FILTRATION RATE 43.6 (>56); POTASSIUM SERUM 5.4 MMOL/L (3.5-5.1)
[2023-10-09 17:08] LABS: % CD8 Pos Lymph 47.9 % (12.0-35.5); %CD4 Pos Lymphs 36.1 % (30.8-58.5); ABS Basophils 0.1 x10E3/uL (0.0-0.2); ABS Eosinophils 0.1 x10E3/uL (0.0-0.4); ABS Lymphs 1.4 x10E3/uL (0.7-3.1); ABS Monocytes 0.3 x10E3/uL (0.1-0.9); ABS Neutophils 4.2 x10E3/uL (1.4-7.0); Abs CD4 Helper 505 /uL (359-1519); Abs CD8 Suppres 671 /uL (109-897); CD4/CD8 Ratio 0.75 (0.92-3.72); Eosinophils 1 % (Not Estab.); HCT 42.1 % (37.5-51.0); HGB 13.1 g/dL (13.0-17.7); HIV-1 RNA PCR QUANT 2 LC550285 <20 copies/mL (.); Immature Grans 0 % (Not Estab.); Lymphocytes 24 % (Not Estab.); MCH 32.5 pg (26.6-33.0); MCHC 31.1 g/dL (31.5-35.7); MCV 105 fL (79-97); Monocytes 5 % (Not Estab.); Neutrophils 69 % (Not Estab.); Platelets 350 x10E3/uL (150-450); RBC 4.03 x10E6/uL (4.14-5.80); RDW 12.2 % (11.6-15.4); TESTOSTERONE FREE (DIRECT) 13.5 pg/mL (7.2-24.0); WBC 6.1 x10E3/uL (3.4-10.8)
== END ==
LOC: M PLALAB 13:14
PROVIDERS: ATTEND Internal Medicine Infectious Disease
DX: B20 Human immunodeficiency virus [HIV] disease (principal); R53.83 Other fatigue; Z12.5 Encounter for screening for malignant neoplasm of prostate

== ENCOUNTER 2023-10-14 07:57 | Day surgery (SDC) | payer MEDICARE ==
[~2023-10-14] VITALS: Ht 170.2 cm; Wt 68.0 kg
[2023-10-14] MEDS: INSULIN LISPRO (NovoLOG) PER UNIT SC PRN (08:46)
[2023-10-14] MEDS ORDERED: MIDAZOLAM INJ 2MG/2ML VIAL As Ordered ONE (09:24)
[2023-10-14] MEDS ORDERED: fentaNYL 100 MCG/2 ML INJECTION As Ordered ONE (09:24)
[2023-10-14] MEDS: PROPARACAINE 0.5% OPHTH SOL 15ML OS ONE (09:34)
[2023-10-14] MEDS: BSS IRR 500ML/OMIDRIA 4ML IRR BAG (OR ONLY) As Ordered ONE (09:34)
[2023-10-14] MEDS: LIDOCAINE 1% SDV 5ML VIAL As Ordered ONE (09:34)
[2023-10-14] MEDS: CEFUROXIME 1MG/0.1ML INTRACAMERAL INJ As Ordered ONE (09:34)
[2023-10-14 09:40] VITALS: BP 176/92; TEMP 97.3; O2SAT 97
[2023-10-14] MEDS: TROPICAMIDE 1% OPHTH SOLN 15ML OS SCH (10:21)
[2023-10-14] MEDS: OFLOXACIN 0.3 % (OCUFLOX) OPTH SOL 5ML OS SCH (10:21)
[2023-10-14] MEDS: ATROPINE SULFATE 1% OPHTH SOLN 2ML BTL OS SCH (10:21)
[2023-10-14] MEDS: PHENYLEPHRINE 2.5% OPHTH SOL 2ML OS SCH (10:21)
== END 2023-10-14 10:24 | disposition home or self-care (01) ==
LOC: M SDC 07:57
PROVIDERS: ATTEND Ophthalmology
DX: H25.12 Age-related nuclear cataract, left eye (principal); E10.9 Type 1 diabetes mellitus without complications; Z79.4 Long term (current) use of insulin; K58.8 Other irritable bowel syndrome; Z79.899 Other long term (current) drug therapy; K21.9 Gastro-esophageal reflux disease without esophagitis; D64.9 Anemia, unspecified; F41.9 Anxiety disorder, unspecified; F32.A Depression, unspecified; Z88.8 Allergy status to other drugs, medicaments and biological substances; N18.4 Chronic kidney disease, stage 4 (severe)
CPT/HCPCS: 66984; J0697; J1097; J1815; J2250; J3010; V2632

== ENCOUNTER → 2023-12-15 | Outpatient (CLI) | payer MEDICARE, MEDICAID ==
[~2023-12-15] MED LIST changes: +BUPR-597 PO; -BUPR300T92 PO; +DOXY-440 PO; -DOXY-444 PO
[2023-12-15 13:19] LABS: HEMOGLOBIN A1c 10.5 % (4.0-6.0)
[2023-12-15 13:41] LABS: CREATININE, URINE 86.4 MG/DL; MAU/CREAT RATIO 293.9 MCG/MG (0.0-30.0)
[2023-12-15 13:44] LABS: CHOLESTEROL RISK RATIO 4.38 (<5); FREE T4 1.03 NG/DL (0.89-1.76); LDL CHOLESTEROL 96.8 MG/DL (<100); THYROID STIMULATING HORMONE 2.173 uIU/ML (0.55-4.78)
[2023-12-15 13:46] LABS: TOTAL 25(OH) VITAMIN D 37.8 NG/ML (20.0-100.0)
== END ==
LOC: M PLALAB 09:15
PROVIDERS: ATTEND Internal Medicine Hematology
DX: E87.5 Hyperkalemia (principal); E10.65 Type 1 diabetes mellitus with hyperglycemia; Z79.899 Other long term (current) drug therapy

== ENCOUNTER → 2024-04-08 | Outpatient (CLI) | payer MEDICARE, OTHER ==
[2024-04-08 16:06] LABS: ALBUMIN 3.8 G/DL (3.2-5.2); BILIRUBIN,TOTAL 0.3 MG/DL (0.3-1.2); CALCIUM LEVEL 10.1 MG/DL (8.5-10.1); CHOLESTEROL RISK RATIO 2.57 (<5); CREATININE FOR GFR 1.73 MG/DL (0.70-1.30); HDL CHOLESTEROL 53.3 MG/DL (>40); LDL CHOLESTEROL 49.3 MG/DL (<100); NON-HDL-C 83.7 MG/DL; POTASSIUM SERUM 3.9 MMOL/L (3.5-5.1); TOTAL PROTEIN 8.4 G/DL (5.7-8.2)
[2024-04-09 15:08] LABS: % CD4+ LYMPHS 39.8 % (30.8-58.5); ABSOLUTE CD4 HELPER 796 /uL (359-1519); BASOPHILS 1 % (Not Estab.); BASOPHILS ABSOLUTE 0.1 x10E3/uL (0.0-0.2); EOSINOPHILS 2 % (Not Estab.); EOSINOPHILS ABSOLUTE 0.1 x10E3/uL (0.0-0.4); HCT 35.9 % (37.5-51.0); HGB 11.8 g/dL (13.0-17.7); LYMPHOCYTES 21 % (Not Estab.); MCH 31.5 pg (26.6-33.0); MCHC 32.9 g/dL (31.5-35.7); MCV 96 fL (79-97); MONOCYTES 9 % (Not Estab.); MONOCYTES ABSOLUTE 0.8 x10E3/uL (0.1-0.9); NEUTROPHILS 67 % (Not Estab.); NEUTROPHILS ABSOLUTE 6.4 x10E3/uL (1.4-7.0); PLT 300 x10E3/uL (150-450); RBC 3.75 x10E6/uL (4.14-5.80); RDW 12.4 % (11.6-15.4); WBC 9.4 x10E3/uL (3.4-10.8)
[2024-04-13 17:21] LABS: HIV-1 RNA PCR QUANT 2 NOT DETECTED copies/mL (NOT DETECTED); HIV-1 RNA PCR QUANT 3 NOT DETECTED (NOT DETECTED)
== END ==
LOC: M PLALAB 13:34
PROVIDERS: ATTEND Internal Medicine Infectious Disease
DX: B20 Human immunodeficiency virus [HIV] disease (principal); E78.2 Mixed hyperlipidemia; E10.65 Type 1 diabetes mellitus with hyperglycemia

== ENCOUNTER 2024-06-22 10:38 | Day surgery (SDC) | payer MEDICARE ==
[~2024-06-22] VITALS: Ht 170.2 cm; Wt 68.0 kg
[~2024-06-22 10:38] MED LIST changes: +GABA-1172 PO; -ROSU20TA61 PO; +ROSU20TA86 PO
[2024-06-22] MEDS: SODIUM CHLORIDE 0.9% 500 ML IV ONE (11:18)
[2024-06-22] MEDS: HumuLIN R (REGULAR) INSULIN (NovoLIN R) **100U/ML** PER UNIT SC ONE (11:18)
[2024-06-22] MEDS ORDERED: propofoL 200 MG/20 ML VIAL As Ordered ONE (12:35)
[2024-06-22] MEDS ORDERED: LIDOCAINE 2% 100MG/5ML SDV (FOR ANES.) As Ordered ONE (12:35)
[2024-06-22 13:22] VITALS: BP 111/65; O2SAT 97
== END 2024-06-22 13:44 | disposition home or self-care (01) ==
LOC: M OPP 10:38
PROVIDERS: ATTEND Internal Medicine Gastroenterology
DX: Z12.11 Encounter for screening for malignant neoplasm of colon (principal); Z86.0100 Personal history of colon polyps, unspecified; K64.8 Other hemorrhoids; K31.89 Other diseases of stomach and duodenum; I10 Essential (primary) hypertension; E78.5 Hyperlipidemia, unspecified; E10.40 Type 1 diabetes mellitus with diabetic neuropathy, unspecified; K58.9 Irritable bowel syndrome, unspecified; K21.9 Gastro-esophageal reflux disease without esophagitis; F41.9 Anxiety disorder, unspecified; F32.A Depression, unspecified; E78.00 Pure hypercholesterolemia, unspecified; I25.2 Old myocardial infarction; B20 Human immunodeficiency virus [HIV] disease; Z88.8 Allergy status to other drugs, medicaments and biological substances; Z79.4 Long term (current) use of insulin; Z79.899 Other long term (current) drug therapy; Z80.42 Family history of malignant neoplasm of prostate
CPT/HCPCS: 43239; 88305; G0105; J1815

== ENCOUNTER → 2024-08-12 | Outpatient (CLI) | payer MEDICARE, OTHER ==
[~2024-08-12] MED LIST changes: -ALIG4CAP PO; +ALIG4CAP3 PO
[2024-08-12 13:40] LABS: HEMATOCRIT 34.6 % (42.0-52.0); HEMOGLOBIN 11.3 g/dl (13.5-17.5); MEAN CORPUSCULAR HGB CONC 32.7 g/dl (32.0-36.5); MEAN CORPUSCULAR VOLUME 94.8 fl (80.0-96.0); PLATELET COUNT, AUTOMATED 291 10^3/uL (150-450); RED BLOOD COUNT 3.65 10^6/uL (4.30-6.10); WHITE BLOOD COUNT 6.8 10^3/uL (4.0-10.0)
[2024-08-12 14:07] LABS: PERCENT SATURATION 27.2 % (19.7-50.0)
[2024-08-12 14:12] LABS: FERRITIN 27.2 NG/ML (10.5-307.3)
== END ==
LOC: M PLAIMG 10:46
PROVIDERS: ATTEND Student in an Organized Health Care Education/Training Program
DX: R53.83 Other fatigue (principal); D50.9 Iron deficiency anemia, unspecified

== ENCOUNTER → 2024-10-21 | Outpatient (REF) | payer MEDICARE, OTHER, MEDICAID | LOC: M SMT 12:42 | PROVIDERS: ATTEND Physician Assistant | DX: L02.214 Cutaneous abscess of groin (principal) ==

== ENCOUNTER → 2025-03-30 | Outpatient (REF) | payer MEDICARE, MEDICAID ==
[~2025-03-30] MED LIST changes: -AMBI5TAB; +AMMO12CR4 TOP; -AMMO12CR7 TOP; -BUPR-597 PO; +BUPR-766 PO; -PRAV40TA2 PO; +PRAV40TA85 PO; +ZOLP-532
== END ==
LOC: M SFHCPLAZ 14:51
PROVIDERS: ATTEND Family Medicine
DX: Z53.9 Procedure and treatment not carried out, unspecified reason (principal)

== ENCOUNTER → 2025-03-30 | Outpatient (CLI) | payer MEDICAID, MEDICARE ==
[~2025-03-30] MED LIST changes: -ZOLP5TAB PO; +ZOLP5TAB9 PO
[2025-03-30 18:46] LABS: ESTIMATED AVERAGE GLUCOSE 249.0 MG/DL (60-110)
[2025-03-30 18:52] LABS: CREATININE, URINE 153.0 MG/DL; MALB URINE SIEMENS 299.0 MG/L; MAU/CREAT RATIO 195.4 MCG/MG (0.0-30.0); PLATELET COUNT, AUTOMATED 357 10^3/uL (150-450)
== END ==
LOC: M PLALAB 15:03
PROVIDERS: ATTEND Family Medicine
DX: E10.69 Type 1 diabetes mellitus with other specified complication (principal); D64.9 Anemia, unspecified

== ENCOUNTER → 2025-03-30 | Outpatient (CLI) | payer MEDICAID, MEDICARE ==
[2025-03-30 18:52] LABS: ALT/SGPT 38.0 U/L (7.0-40); AST/SGOT 34.0 U/L (<34); CALCIUM LEVEL 10.2 MG/DL (8.5-10.1); CARBON DIOXIDE LEVEL 31.0 MMOL/L (20-31); CHLORIDE LEVEL 101.0 MMOL/L (98-107); CREATININE FOR GFR 1.53 MG/DL (0.70-1.30); GLOMERULAR FILTRATION RATE 53.4 (>56); POTASSIUM SERUM 4.3 MMOL/L (3.5-5.1); SODIUM LEVEL 142.0 MMOL/L (136-145)
[2025-03-30 18:55] LABS: VITAMIN B12 LEVEL 608.0 PG/ML (211-911)
[2025-04-01 12:08] LABS: % CD4+ LYMPHS 47.6 % (30.8-58.5); ABSOLUTE CD4 HELPER 1142 /uL (359-1519); BASOPHILS 1 % (Not Estab.); BASOPHILS ABSOLUTE 0.1 x10E3/uL (0.0-0.2); EOSINOPHILS 3 % (Not Estab.); EOSINOPHILS ABSOLUTE 0.2 x10E3/uL (0.0-0.4); HCT 42.5 % (37.5-51.0); HGB 13.3 g/dL (13.0-17.7); LYMPHOCYTES 34 % (Not Estab.); LYMPHOCYTES ABSOLUTE 2.4 x10E3/uL (0.7-3.1); MCH 30.8 pg (26.6-33.0); MCHC 31.3 g/dL (31.5-35.7); MCV 98 fL (79-97); MONOCYTES 6 % (Not Estab.); MONOCYTES ABSOLUTE 0.4 x10E3/uL (0.1-0.9); NEUTROPHILS 56 % (Not Estab.); NEUTROPHILS ABSOLUTE 4.0 x10E3/uL (1.4-7.0); PLT 365 x10E3/uL (150-450); RBC 4.32 x10E6/uL (4.14-5.80); RDW 13.0 % (11.6-15.4); WBC 7.2 x10E3/uL (3.4-10.8)
[2025-04-02 03:37] LABS: HIV-1 RNA PCR QUANT 2 <20 DETECTED copies/mL (NOT DETECTED); HIV-1 RNA PCR QUANT 3 <1.30 DETECTED (NOT DETECTED)
== END ==
LOC: M PLALAB 15:05
PROVIDERS: ATTEND Internal Medicine Infectious Disease
DX: B20 Human immunodeficiency virus [HIV] disease (principal)

== ENCOUNTER → 2025-07-07 | Outpatient (REF) | payer MEDICARE, MEDICAID | LOC: M SFHCPLAZ 13:59 | PROVIDERS: ATTEND Family Medicine | DX: Z53.9 Procedure and treatment not carried out, unspecified reason (principal) ==